=== PATIENT | female | born 1980 | race Caucasian/White ===

== ENCOUNTER 2017-02-24 20:43 | Emergency (ER) | payer MEDICAID ==
[2017-02-24] MEDS ORDERED: Ondansetron 4 MG/2 ML SDV IVPUSH ONE (21:08)
[2017-02-24] MEDS ORDERED: Sodium Chloride 0.9% 1,000 ML IV SCH (21:15)
[2017-02-24] MEDS ORDERED: Promethazine 12.5 MG in Sodium Chloride 0.9% 50 ML IV STA (21:33)
[2017-02-24] MEDS ORDERED: HYDROmorphone 1 MG/ML Syringe IVPUSH ONE (21:34)
[2017-02-24] MEDS ORDERED: Lactated Ringers 1,000 ML IV SCH (23:30)
[2017-02-25] MEDS ORDERED: HYDROmorphone 0.5 MG/0.5 ML Syringe IVPUSH ONE (00:02)
[2017-02-25] MEDS ORDERED: Promethazine 12.5 MG in Sodium Chloride 0.9% 50 ML IV STA (01:00)
--- NOTE | 2017-02-25 01:06 | EDM.PDOC ---
ED HISTORY OF PRESENT ILLNESS - General Chief Complaint: Chest Pain Stated Complaint: CHEST PAIN / DRY HEAVES Time Seen by Provider: 02/24/17 20:53 Source: Reports: Patient History Limitations: Reports: No limitations - History of Present Illness INITIAL COMMENTS - FREE TEXT/NARRATIVE: History of present illness: [This 36-year-old female is here visiting from [place]. She states she has a history of SVTs and had an episode this morning that lasted a while longer than usual and that when she has a nap so she will often get nauseated and get a headache. she is presenting with nausea and a headache and attributing it to the SVT episode that she had this morning. She is on medications to control this but sometimes she still has these episodes. Sounds like there is some consideration for ablation therapy at that has not occurred yet. Sometimes she will have chest pain with these episodes and she did this morning. She denies any fevers or chills cough or cold symptoms denies any abdominal pain or dysuria.] Review of systems: As per history of present illness and below otherwise all systems reviewed and negative. Past medical history: As per history of present illness and as reviewed below otherwise noncontributory. Surgical history: As per history of present illness and as reviewed below otherwise noncontributory. Social history: No reported history of drug or alcohol abuse. Family history: As per history of present illness and as reviewed below otherwise noncontributory. Physical exam: Gen.: Well-developed well-nourished white female in no acute distress HEENT: Atraumatic, normocephalic, pupils reactive, negative for conjunctival pallor or scleral icterus, mucous membranes moist, throat clear, neck supple, nontender, trachea midline. Lungs: Clear to auscultation, breath sounds equal bilaterally, chest nontender. Heart: S1S2, regular, negative for clicks, rubs, or JVD. Abdomen: Soft, nondistended, nontender. Negative for masses or hepatosplenomegaly. Negative for costovertebral tenderness. Pelvis: Stable nontender. Genitourinary: Deferred. Rectal: Deferred. Extremities: Atraumatic, negative for cords or calf pain. Neurovascular unremarkable. Neuro: Awake, alert, oriented. Cranial nerves II through XII unremarkable. Cerebellum unremarkable. Motor and sensory unremarkable throughout. Exam nonfocal. Diagnostics: [CBC complete metabolic panel and a UA and a chest x-ray and EKG and troponins were done her white count is elevated at 15,000+ the etiology of this is uncertain. Her chest x-ray is clear and her urinalysis although it has a few white cells is in the setting of her being completely asymptomatic with no burning or frequency.] Therapeutics: [She received 2 L of fluids while here her IV Dilaudid and IV Phenergan for nausea.] Impression: [Headache with nausea according to the patient secondary to SVT] Plan: [She will followup when necessary and she will be returning home to [place] this Tuesday.] Definitive disposition and diagnosis as appropriate pending reevaluation and review of above. - Related Data Allergies/ADRs: Allergies Allergy/AdvReac Type Severity Reaction Status Date / Time No Known Allergies Allergy Verified 02/24/17 20:52 Home Meds: Home Meds Apixaban [Eliquis] 2 tab PO BID 02/24/17 [History] Benazepril [Lotensin] 20 mg PO DAILY 02/24/17 [History] Metoprolol Succinate 25 mg PO DAILY 02/24/17 [History] Pantoprazole Sodium [Protonix] 20 mg PO BID 02/24/17 [History] QUEtiapine [SEROquel] 600 mg PO BEDTIME 02/24/17 [History] lamoTRIgine [Lamictal XR] 200 mg PO DAILY 02/24/17 [History] Past Medical History HEENT History: Reports: Impaired vision Cardiovascular History: Reports: Arrhythmia, Blood clots/VTE/DVT, High cholesterol Respiratory History: Reports: Asthma, Bronchitis, recurrent, Pneumonia, recurrent Gastrointestinal History: Reports: GERD, Irritable bowel syndrome [employer] History: Reports: 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, Musculoskeletal History: Reports: Fracture Neurological History: Reports: Concussion Psychiatric History: Reports: Anxiety, Depression, Psych Hospitalization(s), Suicide attempt Endocrine/Metabolic History: Reports: Obesity/BMI 30+ - Infectious Disease History Infectious Disease History: Reports: Chicken pox, Mononucleosis - Past Surgical History Cardiovascular Surgical History: Reports: Cardiac Ablation GI Surgical History: Reports: Appendectomy, Cholecystectomy, Colonoscopy, Yue fundoplication Female Surgical History: Reports: Hysterectomy, Salpingo-oophorectomy Social & Family History - Tobacco Use Smoking Status *Q: Current Every Day Smoker Years of Tobacco use: 24 Packs/Tins Daily: 1 - Caffeine Use Caffeine Use: Reports: Tea - Recreational Drug Use Recreational Drug Use: No ED ROS GENERAL - Review of Systems Review Of Systems: ROS reveals no pertinent complaints other than HPI. ED EXAM, GENERAL - Physical Exam Exam: See Below Course - Vital Signs Last Recorded V/S: Last Vital Signs Temp 37.5 C 02/24/17 22:00 Pulse 95 02/24/17 23:16 Resp 16 02/24/17 23:16 BP 111/61 02/24/17 23:16 Pulse Ox 96 02/24/17 23:16 - Orders/Labs/Meds Orders: Active Orders 24 hr Category Date Time Status EKG Documentation Completion [RC] ASDIRECTED Care 02/24/17 21:07 Active Chest 1V Frontal [CR] Stat Exams 02/24/17 21:06 Taken Lactated Ringers [Ringers, Lactated] 1,000 ml Med 02/24/17 23:30 Active IV ASDIRECTED Promethazine [Phenergan] 12.5 mg Med 02/25/17 01:00 Ordered Sodium Chloride 0.9% [Normal Saline] 50 ml IV NOW Sodium Chloride 0.9% [Normal Saline] 1,000 ml Med 02/24/17 21:15 Active IV ASDIRECTED EKG 12 Lead [EK] Stat Ther 02/24/17 21:06 Ordered Medication Orders Sodium Chloride (Normal Saline) 1,000 mls @ 999 mls/hr IV ASDIRECTED [facility] Last Admin: 02/24/17 21:24 Dose: 999 mls/hr Lactated Ringer's (Ringers, Lactated) 1,000 mls @ 999 mls/hr IV ASDIRECTED [facility] Last Admin: 02/24/17 23:29 Dose: 999 mls/hr Labs: Laboratory Tests 02/24/17 02/24/17 02/24/17 Range/Units 21:06 21:06 21:06 WBC 15.8 H (4.5-11.0) K/uL RBC 4.90 (3.30-5.50) M/uL Hgb 14.9 (12.0-15.0) g/dL Hct 41.7 (36.0-48.0) % MCV 85 (80-98) fL MCH 30 (27-31) pg MCHC 36 (32-36) % Plt Count 312 (150-400) K/uL Neut % (Auto) 87 H (36-66) % Lymph % (Auto) 6 L (24-44) % Sutton % (Auto) 6 (2-6) % Eos % (Auto) 1 L (2-4) % Baso % (Auto) 0 (0-1) % D-Dimer, Quantitative 114 (0.0-400.0) ng/mL Sodium 138 L (140-148) mmol/L Potassium 3.8 (3.6-5.2) mmol/L Chloride 104 (100-108) mmol/L Carbon Dioxide 24 (21-32) mmol/L Anion Gap 13.8 (5.0-14.0) mmol/L BUN 22 H (7-18) mg/dL Creatinine 1.0 (0.6-1.0) mg/dL Est Cr Clr Drug Dosing 73.51 mL/min Estimated GFR (MDRD) > 60 (>60) Glucose 104 (74-106) mg/dL Calcium 8.2 L (8.5-10.1) mg/dL Total Bilirubin 0.4 (0.2-1.0) mg/dL AST 17 (15-37) U/L ALT 26 (12-78) U/L Alkaline Phosphatase 124 H (46-116) U/L Troponin I < 0.017 (0.000-0.056) ng/mL Total Protein 7.5 (6.4-8.2) g/dL Albumin 3.6 (3.4-5.0) g/dL Globulin 3.9 H (2.3-3.5) g/dL Albumin/Globulin Ratio 0.9 L (1.2-2.2) Urine Color Urine Appearance Urine pH (4.5-8.0) Ur Specific [place] (1.008-1.030) Urine Protein (NEGATIVE) mg/dL Urine Glucose (UA) (NEGATIVE) mg/dL Urine Ketones (NEGATIVE) mg/dL Urine Occult Blood (NEGATIVE) Urine Nitrite (NEGATIVE) Urine Bilirubin (NEGATIVE) Urine Urobilinogen (NORMAL) mg/dL Ur Leukocyte Esterase (NEGATIVE) Urine RBC (0-5) Urine WBC (0-5) Ur Epithelial Cells Amorphous Sediment Urine Bacteria Urine Mucus 02/24/17 Range/Units 23:07 WBC (4.5-11.0) K/uL RBC (3.30-5.50) M/uL Hgb (12.0-15.0) g/dL Hct (36.0-48.0) % MCV (80-98) fL MCH (27-31) pg MCHC (32-36) % Plt Count (150-400) K/uL Neut % (Auto) (36-66) % Lymph % (Auto) (24-44) % Sutton % (Auto) (2-6) % Eos % (Auto) (2-4) % Baso % (Auto) (0-1) % D-Dimer, Quantitative (0.0-400.0) ng/mL Sodium (140-148) mmol/L Potassium (3.6-5.2) mmol/L Chloride (100-108) mmol/L Carbon Dioxide (21-32) mmol/L Anion Gap (5.0-14.0) mmol/L BUN (7-18) mg/dL Creatinine (0.6-1.0) mg/dL Est Cr Clr Drug Dosing mL/min Estimated GFR (MDRD) (>60) Glucose (74-106) mg/dL Calcium (8.5-10.1) mg/dL Total Bilirubin (0.2-1.0) mg/dL AST (15-37) U/L ALT (12-78) U/L Alkaline Phosphatase (46-116) U/L Troponin I (0.000-0.056) ng/mL Total Protein (6.4-8.2) g/dL Albumin (3.4-5.0) g/dL Globulin (2.3-3.5) g/dL Albumin/Globulin Ratio (1.2-2.2) Urine Color Yellow Urine Appearance Slightly cloudy Urine pH 5.0 (4.5-8.0) Ur Specific [place] 1.025 (1.008-1.030) Urine Protein Negative (NEGATIVE) mg/dL Urine Glucose (UA) Normal (NEGATIVE) mg/dL Urine Ketones 15 H (NEGATIVE) mg/dL Urine Occult Blood Negative (NEGATIVE) Urine Nitrite Negative (NEGATIVE) Urine Bilirubin Small (NEGATIVE) Urine Urobilinogen Normal (NORMAL) mg/dL Ur Leukocyte Esterase Small (NEGATIVE) Urine RBC 0-5 (0-5) Urine WBC 5-10 H (0-5) Ur Epithelial Cells Moderate Amorphous Sediment Not seen Urine Bacteria Few Urine Mucus Moderate Meds: Medications Generic Name Dose Route Start Last Admin Trade Name Freq PRN Reason Stop Dose Admin Sodium Chloride 1,000 mls @ 999 mls/hr 02/24/17 21:15 02/24/17 21:24 Normal Saline IV 999 mls/hr ASDIRECTED DEMOND Administration Lactated Ringer's 1,000 mls @ 999 mls/hr 02/24/17 23:30 02/24/17 23:29 Ringers, Lactated IV 999 mls/hr ASDIRECTED DEMOND Administration Discontinued Medications Generic Name Dose Route Start Last Admin Trade Name Freq PRN Reason Stop Dose Admin Hydromorphone HCl 0.5 mg 02/24/17 21:34 02/24/17 21:46 Dilaudid IVPUSH 02/24/17 21:35 0.5 mg ONETIME ONE Administration Hydromorphone HCl 0.5 mg 02/25/17 00:02 02/25/17 00:06 Dilaudid IVPUSH 02/25/17 00:03 0.5 mg ONETIME ONE Administration Promethazine HCl 12.5 mg/ 50.5 mls @ 200 mls/hr 02/24/17 21:33 02/24/17 21:45 Sodium Chloride IV 02/24/17 21:48 200 mls/hr NOW STA Administration Ondansetron HCl 4 mg 02/24/17 21:08 02/24/17 21:24 Zofran IVPUSH 02/24/17 21:09 4 mg ONETIME ONE Administration Departure - Departure Time of Disposition: 01:05 Disposition: Home, Self-Care 01 Condition: good Clinical Impression: Nausea, History of paroxysmal supraventricular tachycardia Headache Qualifiers: Headache type: unspecified Headache chronicity pattern: episodic headache Intractability: not intractable Qualified Code(s): R51 - Headache Forms: ED Department Discharge Additional Instructions: I hope you get to feeling better and I would recommend you followup with your primary care doctor when you return to [place]. In the meantime we can see you as needed here in [place]. - My Orders Last 24 Hours: My Active Orders 02/24/17 21:06 Chest 1V Frontal [CR] Stat EKG 12 Lead [EK] Stat 02/24/17 21:07 EKG Documentation Completion [RC] ASDIRECTED 02/24/17 21:15 Sodium Chloride 0.9% [Normal Saline] 1,000 ml IV ASDIRECTED 02/24/17 23:30 Lactated Ringers [Ringers, Lactated] 1,000 ml IV ASDIRECTED 02/25/17 01:00 Promethazine [Phenergan] 12.5 mg Sodium Chloride 0.9% [Normal Saline] 50 ml IV NOW - Assessment/Plan Last 24 Hours: My Active Orders 02/24/17 21:06 Chest 1V Frontal [CR] Stat EKG 12 Lead [EK] Stat 02/24/17 21:07 EKG Documentation Completion [RC] ASDIRECTED 02/24/17 21:15 Sodium Chloride 0.9% [Normal Saline] 1,000 ml IV ASDIRECTED 02/24/17 23:30 Lactated Ringers [Ringers, Lactated] 1,000 ml IV ASDIRECTED 02/25/17 01:00 Promethazine [Phenergan] 12.5 mg Sodium Chloride 0.9% [Normal Saline] 50 ml IV NOW
[2017-02-25 01:12] VITALS: BP 108/65
--- NOTE | 2017-02-25 09:08 | CR ---
Chest 1V Frontal HISTORY: Chest pain. FINDINGS: Cardiac size and pulmonary vessels are normal. The lungs are clear. IMPRESSION: Negative AP chest.
== END 2017-02-25 01:45 | disposition home or self-care (01) ==
LOC: JP.ED 20:43
DX: R51 Headache (principal); R11.0 Nausea; F17.210 Nicotine dependence, cigarettes, uncomplicated; J45.909 Unspecified asthma, uncomplicated; E78.00 Pure hypercholesterolemia, unspecified; E66.9 Obesity, unspecified; Z68.37 Body mass index [BMI] 37.0-37.9, adult; Z90.49 Acquired absence of other specified parts of digestive tract; Z79.899 Other long term (current) drug therapy
CPT/HCPCS: 36415; 71010; 80053; 81001; 84484; 85025; 85379; 93005; 96361; 96365; 96375; 96376; 99284; J1170; J2405; J2550; J7040; J7050; J7120; 93010

== ENCOUNTER 2017-07-29 19:42 | Emergency (ER) | payer MEDICAID ==
[2017-07-29 20:23] VITALS: BP 129/69
--- NOTE | 2017-07-29 21:11 | EDM.PDOC ---
ED HPI GENERAL MEDICAL PROBLEM - General Chief Complaint: Respiratory Problem Stated Complaint: COUGH Time Seen by Provider: 07/29/17 21:00 Source of Information: Reports: Patient, Family History Limitations: Reports: No Limitations - History of Present Illness INITIAL COMMENTS - FREE TEXT/NARRATIVE: Patient presents to ER tonight for complaints of fever, chills, cough, wheezing and sinus pain/pressure for 3 to 8 days. Symptoms seemed to improve then worsen. - Related Data Allergies Allergy/AdvReac Type Severity Reaction Status Date / Time ondansetron Allergy Headache Verified 07/29/17 20:29 [From Zofran (as hydrochloride)] Home Meds: Home Meds Benazepril [Lotensin] 20 mg PO DAILY 02/24/17 [History] Metoprolol Succinate 25 mg PO DAILY 02/24/17 [History] Pantoprazole Sodium [Protonix] 20 mg PO BID 02/24/17 [History] QUEtiapine [SEROquel] 600 mg PO BEDTIME 02/24/17 [History] lamoTRIgine [Lamictal XR] 200 mg PO DAILY 02/24/17 [History] Past Medical History HEENT History: Reports: Impaired Vision Cardiovascular History: Reports: Arrhythmia, Blood Clots/VTE/DVT, High Cholesterol Respiratory History: Reports: Asthma, Bronchitis, Recurrent, Pneumonia, Recurrent Gastrointestinal History: Reports: GERD, Irritable Bowel Syndrome [employer] History: Reports: 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, Musculoskeletal History: Reports: Fracture Neurological History: Reports: Concussion Psychiatric History: Reports: Anxiety, Depression, Psych Hospitalization(s), Suicide Attempt Endocrine/Metabolic History: Reports: Obesity/BMI 30+ - Infectious Disease History Infectious Disease History: Reports: Chicken Pox, Mononucleosis - Past Surgical History GI Surgical History: Reports: Appendectomy, Cholecystectomy, Colonoscopy, Yue Fundoplication Female Surgical History: Reports: Hysterectomy, Salpingo-Oophorectomy Social & Family History - Tobacco Use Smoking Status *Q: Current Every Day Smoker Years of Tobacco use: 20 Packs/Tins Daily: 1 - Caffeine Use Caffeine Use: Reports: Tea - Recreational Drug Use Recreational Drug Use: No ED ROS GENERAL - Review of Systems Review Of Systems: See Below Constitutional: Reports: Fever, Chills. Denies: Malaise, Weakness HEENT: Reports: Sinus Problem. Denies: Ear Discharge, Ear Pain, Throat Pain, Throat Swelling Respiratory: Reports: Wheezing, Cough. Denies: Shortness of Breath, Sputum, Hemoptysis Cardiovascular: Denies: Chest Pain, Dyspnea on Exertion, Edema, Lightheadedness , Palpitations Endocrine: Reports: No Symptoms GI/Abdominal: Reports: No Symptoms : Reports: No Symptoms Musculoskeletal: Reports: No Symptoms Skin: Reports: No Symptoms Neurological: Reports: No Symptoms Psychiatric: Reports: No Symptoms Hematologic/Lymphatic: Reports: No Symptoms Immunologic: Reports: No Symptoms ED EXAM, GENERAL - Physical Exam Exam: See Below Free Text/Narrative:: Reva presents today with complaints of fever, chills, sinus congestion/ pain with wheezing off and on for 3 to 8 days. She also complains of headache. She states her symptoms seemed to get better then worsen. Exam Limited By: No Limitations General Appearance: Alert, WD/WN, Mild Distress Eye Exam: Bilateral Eye: EOMI, Normal Inspection, PERRL Ears: Normal External Exam, Normal Canal, Hearing Grossly Normal, Normal TMs Ear Exam: Bilateral Ear: Auricle Normal, Canal Normal, TM Dull Nose: Nasal Tenderness, Nasal Swelling, Nasal Drainage, Other (green) Throat/Mouth: Normal Lips, Normal Voice, No Airway Compromise, Other (erythema to pharynx) Head: Atraumatic, Normocephalic Neck: Normal Inspection, Supple, Non-Tender, Full Range of Motion. No: Lymphadenopathy (R), Lymphadenopathy (L) Respiratory/Chest: No Respiratory Distress, No Accessory Muscle Use, Chest Non- Tender, Wheezing, Prolonged Expiration Cardiovascular: Normal Peripheral Pulses, Regular Rate, Rhythm, No Edema, No Murmur, No Rub Back Exam: Normal Inspection, Full Range of Motion. No: CVA Tenderness (R), CVA Tenderness (L) Extremities: Normal Inspection, Normal Range of Motion, Non-Tender, No Pedal Edema, Normal Capillary Refill Neurological: Alert, Oriented, CN II-XII Intact, Normal Cognition, Normal Gait, No Motor/Sensory Deficits Psychiatric: Normal Affect, Normal Mood Skin Exam: Warm, Dry, Intact, No Rash, Other (Flushed. ) Lymphatic: No Adenopathy Course - Vital Signs Last Recorded V/S: Last Vital Signs Temp 37.0 C 07/29/17 20:41 Pulse 88 07/29/17 20:41 Resp 16 07/29/17 20:41 BP 129/69 07/29/17 20:41 Pulse Ox 98 07/29/17 20:41 Departure - Departure Time of Disposition: 21:23 Disposition: Home, Self-Care 01 Condition: Good Clinical Impression: Sinusitis, Cough, Fever, Wheezing on auscultation - Discharge Information Instructions: Allergic Rhinitis Referrals: PCP,None [Primary Care Provider] - Forms: ED Department Discharge Additional Instructions: You are suffering from post nasal drip, sinus pain and pressure, cough, fever and wheezing. You can take ibuprofen 800mg by mouth three times a day as needed for pain/ fever. Use of acetaminophen 650mg by mouth can be used 3 to 4 times a day as well. Take robitussin AC as directed for cough. Use of benzonatate 100mg PO three times a day as needed for cough (DO NOT bite or chew pill). Albuterol inhaler as directed for wheezing. Fluticasone nasal spray, one spray each nare daily as needed for congestion. Chlorpheniramine 4mg tablet, one tablet every 4 to 6 hours as needed for congestion. Fill doxycycline 100mg tablet by mouth twice per day for 10 days if fevers, sinuses worsen in 24 to 48 hours. Drinking plenty of fluids, hot and cold can help your cough. Sleeping with your head elevated can help as well. Return for worsening issues or concerns. - Assessment/Plan Assessment:: Cough Fever Wheezing Sinusitis Plan: She can take ibuprofen 800mg by mouth three times a day as needed for pain/ fever. Use of acetaminophen 650mg by mouth can be used 3 to 4 times a day as well. Take robitussin AC as directed for cough. Use of benzonatate 100mg PO three times a day as needed for cough (DO NOT bite or chew pill). Albuterol inhaler as directed for wheezing. Fluticasone nasal spray, one spray each nare daily as needed for congestion. Chlorpheniramine 4mg tablet, one tablet every 4 to 6 hours as needed for congestion. Fill doxycycline 100mg tablet by mouth twice per day for 10 days if fevers, sinuses worsen in 24 to 48 hours. Drinking plenty of fluids, hot and cold can help your cough. Sleeping with your head elevated can help as well. Return for worsening issues or concerns
== END 2017-07-29 21:33 | disposition home or self-care (01) ==
LOC: JP.ED 19:42
DX: J32.9 Chronic sinusitis, unspecified (principal); J45.909 Unspecified asthma, uncomplicated; Z86.718 Personal history of other venous thrombosis and embolism; E78.00 Pure hypercholesterolemia, unspecified; E66.9 Obesity, unspecified; Z87.01 Personal history of pneumonia (recurrent); Z79.899 Other long term (current) drug therapy
CPT/HCPCS: 99283

== ENCOUNTER 2017-09-28 20:27 | Emergency (ER) | payer MEDICAID ==
--- NOTE | 2017-09-28 21:10 | EDM.PDOC ---
ED HPI GENERAL MEDICAL PROBLEM - General Chief Complaint: Back Pain or Injury Stated Complaint: RIGHT LOWER BACK/FLANK PAIN Time Seen by Provider: 09/28/17 21:10 Source of Information: Reports: Patient History Limitations: Reports: No Limitations - History of Present Illness INITIAL COMMENTS - FREE TEXT/NARRATIVE: pt arrived stating for the past 2 days that she has had pain accross her back and she has had some pain in the left flank. She has sharp pain on the rt that goes down over the buttock. Onset: Gradual, Other ( last 2 days. ) Duration: Hour(s):, Getting Worse Location: Reports: Back Associated Symptoms: Reports: Other (pain in the left flank. ) lower back pain Pain Score (Numeric/FACES): 8 - Related Data Allergies Allergy/AdvReac Type Severity Reaction Status Date / Time ondansetron AdvReac Headache Verified 09/29/17 13:15 [From Zofran (as hydrochloride)] Home Meds: Home Meds Benazepril [Lotensin] 20 mg PO DAILY 02/24/17 [History] Metoprolol Succinate 25 mg PO DAILY 02/24/17 [History] Pantoprazole Sodium [Protonix] 20 mg PO BID 02/24/17 [History] QUEtiapine [SEROquel] 600 mg PO BEDTIME 02/24/17 [History] lamoTRIgine [Lamictal XR] 200 mg PO DAILY 02/24/17 [History] ALPRAZolam [Xanax] 0.5 mg PO ASDIRECTED PRN 09/28/17 [History] Past Medical History HEENT History: Reports: Impaired Vision Cardiovascular History: Reports: Arrhythmia, Blood Clots/VTE/DVT, High Cholesterol, Hypertension, Other (See Below) Other Cardiovascular History: SVT Respiratory History: Reports: Asthma, Bronchitis, Recurrent, Pneumonia, Recurrent Gastrointestinal History: Reports: GERD, Irritable Bowel Syndrome 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: 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, Musculoskeletal History: Reports: Fracture Neurological History: Reports: Concussion Psychiatric History: Reports: Anxiety, Bipolar, Depression, Psych Hospitalization(s), Suicide Attempt Endocrine/Metabolic History: Reports: Obesity/BMI 30+ - Infectious Disease History Infectious Disease History: Reports: Chicken Pox - Past Surgical History Cardiovascular Surgical History: Reports: Cardiac Ablation GI Surgical History: Reports: Appendectomy, Cholecystectomy, Colonoscopy, Yue Fundoplication Female Surgical History: Reports: Hysterectomy, Salpingo-Oophorectomy Social & Family History - Tobacco Use Smoking Status *Q: Current Every Day Smoker Years of Tobacco use: 24 Packs/Tins Daily: 1 - Caffeine Use Caffeine Use: Reports: Tea - Recreational Drug Use Recreational Drug Use: No ED ROS GENERAL - Review of Systems Review Of Systems: See Below Constitutional: Reports: No Symptoms HEENT: Reports: No Symptoms Respiratory: Reports: No Symptoms Cardiovascular: Reports: No Symptoms Endocrine: Reports: No Symptoms GI/Abdominal: Reports: Other (pt has left flank pain) : Reports: No Symptoms Musculoskeletal: Reports: Other (pain accross the entire back and pain in the buttock area on the rt. ) ED EXAM,LOWER BACK PAIN/INJURY - Physical Exam Exam: See Below Text/Narrative:: pt arrived with pain accross the entire back and sharp pain over the rt buttock. The pt also has ain in the left flank area. Exam Limited By: No Limitations General Appearance: Alert, Anxious, Moderate Distress Ears: Normal TMs Nose: Normal Inspection Throat/Mouth: Normal Inspection Head: Atraumatic Neck: Normal Inspection Respiratory/Chest: No Respiratory Distress Cardiovascular: Regular Rate, Rhythm GI/Abdominal: Soft, Non-Tender, Other (pt does have rt flank tenderness) Rectal (Female) Exam: Deferred Back Exam: Muscle Spasm, Other (pt is tender accross te lower back. She has a neg straight leg raising ) Extremities: Normal Inspection Course - Vital Signs Last Recorded V/S: Last Vital Signs Temp 36.2 C 09/28/17 20:54 Pulse 91 09/28/17 23:01 Resp 16 09/28/17 23:01 BP 111/59 L 09/28/17 23:01 Pulse Ox 99 09/28/17 23:01 - Orders/Labs/Meds Labs: Laboratory Tests 09/28/17 09/28/17 09/28/17 Range/Units 21:18 21:18 21:47 WBC 7.9 (4.5-11.0) K/uL RBC 4.45 (3.30-5.50) M/uL Hgb 13.4 (12.0-15.0) g/dL Hct 39.0 (36.0-48.0) % MCV 88 (80-98) fL MCH 30 (27-31) pg MCHC 34 (32-36) % Plt Count 263 (150-400) K/uL Neut % (Auto) 38 (36-66) % Lymph % (Auto) 46 H (24-44) % [place] % (Auto) 7 H (2-6) % Eos % (Auto) 8 H (2-4) % Baso % (Auto) 1 (0-1) % Sodium 141 (140-148) mmol/L Potassium 3.7 (3.6-5.2) mmol/L Chloride 106 (100-108) mmol/L Carbon Dioxide 29 (21-32) mmol/L Anion Gap 6.3 (5.0-14.0) mmol/L BUN 21 H (7-18) mg/dL Creatinine 0.9 (0.6-1.0) mg/dL Est Cr Clr Drug Dosing 77.76 mL/min Estimated GFR (MDRD) > 60 (>60) Glucose 80 (74-106) mg/dL Calcium 8.7 (8.5-10.1) mg/dL Total Bilirubin 0.1 L D (0.2-1.0) mg/dL AST 16 (15-37) U/L ALT 22 (12-78) U/L Alkaline Phosphatase 106 (46-116) U/L Total Protein 6.7 (6.4-8.2) g/dL Albumin 3.2 L (3.4-5.0) g/dL Globulin 3.5 (2.3-3.5) g/dL Albumin/Globulin Ratio 0.9 L (1.2-2.2) Urine Color Yellow Urine Appearance Cloudy Urine pH 5.0 (4.5-8.0) Ur Specific [place] 1.025 (1.008-1.030) Urine Protein Negative (NEGATIVE) mg/dL Urine Glucose (UA) Normal (NEGATIVE) mg/dL Urine Ketones Negative (NEGATIVE) mg/dL Urine Occult Blood Negative (NEGATIVE) Urine Nitrite Negative (NEGATIVE) Urine Bilirubin Negative (NEGATIVE) Urine Urobilinogen Normal (NORMAL) mg/dL Ur Leukocyte Esterase Small (NEGATIVE) Urine RBC 0-5 (0-5) Urine WBC 10-20 H (0-5) Ur Epithelial Cells Moderate Amorphous Sediment Few Urine Bacteria Few Urine Mucus Few Meds: Medications Discontinued Medications Generic Name Dose Route Start Last Admin Trade Name Freq PRN Reason Stop Dose Admin Cyclobenzaprine HCl 10 mg 12/06/17 21:18 09/28/17 21:43 Flexeril PO 09/28/17 21:19 10 mg ONETIME ONE Administration Hydromorphone HCl 0.5 mg 09/28/17 22:36 Dilaudid IVPUSH 09/28/17 22:37 ONETIME ONE Hydromorphone HCl 0.5 mg 09/28/17 23:05 09/28/17 23:06 Dilaudid IM 09/28/17 23:06 0.5 mg ONETIME ONE Administration Sodium Chloride 1,000 mls @ 999 mls/hr 09/28/17 22:45 Normal Saline IV ASDIRECTED [facility] Ketorolac Tromethamine 60 mg 09/28/17 21:18 09/28/17 21:43 Toradol IM 09/28/17 21:19 60 mg ONETIME ONE Administration - Re-Assessments/Exams Free Text/Narrative Re-Assessment/Exam: 09/29/17 00:00 wbc is normal. Her chem look good. Her urine does look infected and was cultured. 10/01/17 07:42 pt was given torodol with very little relief. sHe was then given dilaudid and she did get relief. Departure - Departure Time of Disposition: 00:01 Disposition: Home, Self-Care 01 Condition: Fair Clinical Impression: UTI (urinary tract infection), Spasm of lumbar paraspinous muscle - Discharge Information Instructions: Urinary Tract Infection, Adult, [id number], Back Pain, Adult, [id number] Referrals: PCP,None [Primary Care Provider] - Forms: ED Department Discharge Care Plan Goals: heat or ice to the area, push fluid-- definite dehydration, cipro 500mg bid for 7 days. norco 5/325 q6h prn for pain, flexeril 10mg hs. Push at least 8 --8 oz glasses of water daily.
[2017-09-28] MEDS ORDERED: Ketorolac 60 MG/2 ML SDV IM ONE (21:18)
[2017-09-28] MEDS ORDERED: Cyclobenzaprine 10 MG Tab PO ONE (21:18)
[2017-09-28] MEDS ORDERED: HYDROmorphone 0.5 MG/0.5 ML Syringe IVPUSH ONE (22:36)
[2017-09-28] MEDS ORDERED: Sodium Chloride 0.9% 1,000 ML IV SCH (22:45)
[2017-09-28 23:02] VITALS: BP 111/59
[2017-09-28] MEDS ORDERED: HYDROmorphone 0.5 MG/0.5 ML Syringe IM ONE (23:05)
--- NOTE | 2017-09-29 08:46 | CR ---
Lumbar Spine Min 4V INDICATION: PAIN ACROSS THE BACK FINDINGS: 5 lumbar type vertebral bodies. Mild to moderate lumbar curve convex to the left. Slight di sc space narrowing and endplate hypertrophic changes at L2-3. Mild degenerative changes lower lumbar facet joints.
== END 2017-09-29 00:13 | disposition home or self-care (01) ==
LOC: JP.ED 20:27
DX: N39.0 Urinary tract infection, site not specified (principal); M62.830 Muscle spasm of back; I10 Essential (primary) hypertension; E78.00 Pure hypercholesterolemia, unspecified; F31.9 Bipolar disorder, unspecified; F17.210 Nicotine dependence, cigarettes, uncomplicated; K21.9 Gastro-esophageal reflux disease without esophagitis; Z79.899 Other long term (current) drug therapy; Z88.8 Allergy status to other drugs, medicaments and biological substances
CPT/HCPCS: 36415; 72110; 80053; 81001; 85025; 87086; 96372; 96374; 99284; A9270; J1170; J1885

== ENCOUNTER 2017-11-06 18:09 | Emergency (ER) | payer MEDICAID ==
[2017-11-06 18:35] VITALS: BP 122/87
[2017-11-06] MEDS ORDERED: diphenhydrAMINE 50 MG/ML SDV IM ONE (18:50)
[2017-11-06] MEDS ORDERED: Promethazine 25 MG/ML SDV IM ONE (18:50)
[2017-11-06] MEDS ORDERED: Ketorolac 60 MG/2 ML SDV IM ONE (18:50)
[2017-11-06] MEDS ORDERED: Orphenadrine 100 MG Tab.ER PO ONE (18:52)
--- NOTE | 2017-11-06 18:59 | EDM.PDOC ---
ED HPI GENERAL MEDICAL PROBLEM - General Chief Complaint: General Stated Complaint: FALL, RIGHT ANKLE,KNEE,HIP PAIN Time Seen by Provider: 11/06/17 18:45 Source of Information: Reports: Patient History Limitations: Reports: No Limitations - History of Present Illness INITIAL COMMENTS - FREE TEXT/NARRATIVE: 37-year-old female who recently moved to the area has chronic pain syndromes, especially headaches and has had a headache for the past 5 days. Very similar to previous headaches for which she gets Toradol, Benadryl, Phenergan and Norflex. On the way out of the house to coming to the emergency room she slipped on the steps on her right side and has soreness in her ankle, knee and right hip. She ambulated into the emergency room. No head injury, no fevers or chills. Onset: Gradual Duration: Day(s): (headache for 5 days) Severity: Mild Associated Symptoms: Denies: Nausea/Vomiting, Shortness of Breath Generalized Pain Score (Numeric/FACES): 9 - Related Data Allergies Allergy/AdvReac Type Severity Reaction Status Date / Time ondansetron AdvReac Headache Verified 11/06/17 18:18 [From Zofran (as hydrochloride)] Home Meds: Home Meds Benazepril [Lotensin] 20 mg PO DAILY 02/24/17 [History] Metoprolol Succinate 25 mg PO DAILY 02/24/17 [History] QUEtiapine [SEROquel] 600 mg PO BEDTIME 02/24/17 [History] lamoTRIgine [Lamictal XR] 200 mg PO DAILY 02/24/17 [History] ALPRAZolam [Xanax] 1 mg PO ASDIRECTED PRN 09/28/17 [History] Omeprazole [priLOSEC OTC] 20 mg PO DAILY 11/06/17 [History] Past Medical History HEENT History: Reports: Impaired Vision Cardiovascular History: Reports: Arrhythmia, Blood Clots/VTE/DVT, High Cholesterol, Hypertension, Other (See Below) Other Cardiovascular History: SVT Respiratory History: Reports: Asthma, Bronchitis, Recurrent, Pneumonia, Recurrent Gastrointestinal History: Reports: GERD, Irritable Bowel Syndrome 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: 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, Musculoskeletal History: Reports: Back Pain, Chronic, Fracture Neurological History: Reports: Concussion, Headaches, Chronic Psychiatric History: Reports: Anxiety, Bipolar, Depression, Psych Hospitalization(s), Suicide Attempt Endocrine/Metabolic History: Reports: Obesity/BMI 30+ - Infectious Disease History Infectious Disease History: Reports: Chicken Pox, Mononucleosis - Past Surgical History Cardiovascular Surgical History: Reports: Cardiac Ablation GI Surgical History: Reports: Appendectomy, Cholecystectomy, Colonoscopy, EGD, Yue Fundoplication Female Surgical History: Reports: Hysterectomy, Salpingo-Oophorectomy Social & Family History - Tobacco Use Smoking Status *Q: Current Every Day Smoker Years of Tobacco use: 20 Packs/Tins Daily: 1 - Caffeine Use Caffeine Use: Reports: Soda Caffeine Use Comment: havent any caffeine for 4 days now - Recreational Drug Use Recreational Drug Use: No ED ROS GENERAL - Review of Systems Review Of Systems: See Below Constitutional: Denies: Fever, Chills HEENT: Reports: No Symptoms Respiratory: Denies: Shortness of Breath, Cough Cardiovascular: Denies: Chest Pain GI/Abdominal: Denies: Abdominal Pain Musculoskeletal: Reports: Foot Pain, Other (Hip and right knee pain from recent fall) Skin: Reports: No Symptoms Neurological: Reports: Headache ED EXAM, GENERAL - Physical Exam Exam: See Below Exam Limited By: No Limitations General Appearance: Alert, Other (Looks uncomfortable but not distressed) Neck: Normal Inspection, Supple Respiratory/Chest: No Respiratory Distress Extremities: Other (Reacts with tenderness to even light palpation across the lateral right hip and around the knee although there is no evidence of trauma such as bruising, asymmetry or abrasion) Neurological: Alert, Oriented, No Motor/Sensory Deficits Psychiatric: Flat Affect Skin Exam: Warm, Dry Course - Vital Signs Last Recorded V/S: Last Vital Signs Temp 97.2 F 11/06/17 18:35 Pulse 100 11/06/17 18:35 Resp 16 11/06/17 18:35 BP 122/87 11/06/17 18:35 Pulse Ox 97 11/06/17 18:35 - Orders/Labs/Meds Meds: Medications Discontinued Medications Generic Name Dose Route Start Last Admin Trade Name Freq PRN Reason Stop Dose Admin Diphenhydramine HCl 50 mg 11/06/17 18:50 11/06/17 19:11 Benadryl IM 11/06/17 18:51 50 mg ONETIME ONE Administration Ketorolac Tromethamine 60 mg 11/06/17 18:50 11/06/17 19:11 Toradol IM 11/06/17 18:51 60 mg ONETIME ONE Administration Promethazine HCl 12.5 mg 11/06/17 18:50 11/06/17 19:10 Phenergan IM 11/06/17 18:51 12.5 mg ONETIME ONE Administration - Re-Assessments/Exams Free Text/Narrative Re-Assessment/Exam: 11/06/17 18:58 Patient was given 50 mg of Benadryl IM, 60 mg of Toradol IM and 12.5 of Phenergan IM. She was also given 100 mg of oral Norflex. She was reassured about her musculoskeletal injuries, no need for x-rays. 11/06/17 19:33 Patient felt quite a bit better after the injections. She was encouraged to ice down sore areas, increase activity as tolerated and recheck with her primary physician in 2-3 days if not improving satisfactorily. Departure - Departure Time of Disposition: 20:59 Disposition: Home, Self-Care 01 Condition: Good Clinical Impression: Tension headache Contusion of hip, right Qualifiers: Encounter type: initial encounter Qualified Code(s): S70.01XA - Contusion of right hip, initial encounter - Discharge Information Instructions: Tension Headache, [id number] Referrals: Medina Casas PA [Primary Care Provider] - Forms: ED Department Discharge Care Plan Goals: Continue your regular medications, a regular dose of ibuprofen or naproxen and ice to sore areas for the next 48 hours should help. Recheck in 2-3 days if not improving satisfactorily.
== END 2017-11-06 20:59 | disposition home or self-care (01) ==
LOC: JP.ED 18:09
DX: S70.01XA Contusion of right hip, initial encounter (principal); G44.209 Tension-type headache, unspecified, not intractable; K21.9 Gastro-esophageal reflux disease without esophagitis; E66.9 Obesity, unspecified; F17.210 Nicotine dependence, cigarettes, uncomplicated; Z88.8 Allergy status to other drugs, medicaments and biological substances; Z79.899 Other long term (current) drug therapy; W19.XXXA Unspecified fall, initial encounter
CPT/HCPCS: 96372; 99284; J1200; J1885; J2550

== ENCOUNTER 2017-11-23 22:23 | Emergency (ER) | payer MEDICAID ==
[2017-11-23 22:55] VITALS: BP 132/72
[2017-11-23] MEDS ORDERED: Lactated Ringers 1,000 ML IV ONE (23:13)
[2017-11-23] MEDS ORDERED: Prochlorperazine 10 MG/2 ML SDV IVPUSH ONE (23:14)
[2017-11-23] MEDS ORDERED: diphenhydrAMINE 50 MG/ML SDV IVPUSH ONE (23:14)
[2017-11-23] MEDS ORDERED: Ketorolac 30 MG/ML SDV IVPUSH ONE (23:14)
[2017-11-23] MEDS ORDERED: Ketorolac 60 MG/2 ML SDV IM ONE (23:27)
[2017-11-23] MEDS ORDERED: Prochlorperazine 10 MG/2 ML SDV IM ONE (23:28)
[2017-11-23] MEDS ORDERED: diphenhydrAMINE 50 MG/ML SDV IM ONE (23:31)
[2017-11-23] MEDS ORDERED: Promethazine 25 MG/ML SDV IM ONE (23:31)
--- NOTE | 2017-11-23 23:45 | EDM.PDOC ---
ED HPI GENERAL MEDICAL PROBLEM - General Chief Complaint: Headache Stated Complaint: MIGRAINE Time Seen by Provider: 11/23/17 23:15 Source of Information: Reports: Patient History Limitations: Reports: No Limitations - History of Present Illness INITIAL COMMENTS - FREE TEXT/NARRATIVE: 37 yo female with a pHx of migraines presents with a couple day hx of a migraine associated with photophobia and nausea. No vomiting. Has not been to the clinic. There is nothing different about this MATA compared with prior MATA's. No fever or recent head trauma. Onset Date: 11/21/17 Duration: Day(s): Location: Reports: Head Quality: Reports: Ache Severity: Moderate Improves with: Reports: None Worsens with: Reports: Medication Context: Reports: Other (Hx of migraine) Associated Symptoms: Reports: Headaches, Nausea/Vomiting (no vomiting). 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) migraine Pain Score (Numeric/FACES): 10 - Related Data Allergies Allergy/AdvReac Type Severity Reaction Status Date / Time ondansetron AdvReac Headache Verified 11/23/17 23:00 [From Zofran (as hydrochloride)] Home Meds: Home Meds Benazepril [Lotensin] 20 mg PO DAILY 02/24/17 [History] Metoprolol Succinate 25 mg PO DAILY 02/24/17 [History] QUEtiapine [SEROquel] 600 mg PO BEDTIME 02/24/17 [History] lamoTRIgine [Lamictal XR] 200 mg PO DAILY 02/24/17 [History] ALPRAZolam [Xanax] 1 mg PO ASDIRECTED PRN 09/28/17 [History] Omeprazole [priLOSEC OTC] 20 mg PO DAILY 11/06/17 [History] Past Medical History HEENT History: Reports: Impaired Vision Cardiovascular History: Reports: Arrhythmia, Blood Clots/VTE/DVT, High Cholesterol, Hypertension, Other (See Below) Other Cardiovascular History: SVT Respiratory History: Reports: Asthma, Bronchitis, Recurrent, Pneumonia, Recurrent Gastrointestinal History: Reports: GERD, Irritable Bowel 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, Musculoskeletal History: Reports: Back Pain, Chronic, Fracture Neurological History: Reports: Concussion, Headaches, Chronic Psychiatric History: Reports: Anxiety, Bipolar, Depression, Psych Hospitalization(s), Suicide Attempt Endocrine/Metabolic History: Reports: Obesity/BMI 30+ - Infectious Disease History Infectious Disease History: Reports: Chicken Pox - Past Surgical History Cardiovascular Surgical History: Reports: Cardiac Ablation GI Surgical History: Reports: Appendectomy, Cholecystectomy, Colonoscopy, EGD, Yue Fundoplication Female Surgical History: Reports: Hysterectomy, Salpingo-Oophorectomy Social & Family History - Tobacco Use Smoking Status *Q: Current Every Day Smoker Years of Tobacco use: 20 Packs/Tins Daily: 1 - Caffeine Use Caffeine Use: Reports: Soda Caffeine Use Comment: havent any caffeine for 4 days now - Recreational Drug Use Recreational Drug Use: No ED ROS GENERAL - Review of Systems Review Of Systems: See Below Constitutional: Reports: No Symptoms HEENT: Reports: Other (photophobia) Respiratory: Reports: No Symptoms Cardiovascular: Reports: No Symptoms Endocrine: Reports: No Symptoms GI/Abdominal: Reports: Decreased Appetite, Nausea. Denies: Abdominal Pain, Black Stool, Bloody Stool, Constipation, Diarrhea, Distension, Hematemesis, Hematochezia, Melena, Vomiting : Reports: No Symptoms Musculoskeletal: Reports: No Symptoms Skin: Reports: No Symptoms Neurological: Reports: Headache Psychiatric: Reports: No Symptoms - Physical Exam Exam: See Below Exam Limited By: No Limitations General Appearance: Alert, WD/WN, No Apparent Distress, Obese Eye Exam: Bilateral Eye: Normal Inspection, PERRL Ears: Normal External Exam, Normal Canal, Hearing Grossly Normal, Normal TMs Nose: Normal Inspection, Normal Mucosa, No Blood Throat/Mouth: Normal Inspection, Normal Lips, Normal Oropharynx, Normal Voice, No Airway Compromise Head Exam: Atraumatic, Normocephalic Neck: Normal Inspection Respiratory/Chest: No Respiratory Distress, Lungs Clear, Normal Breath Sounds, No Accessory Muscle Use Cardiovascular: Regular Rate, Rhythm, No Edema GI/Abdominal: Normal Bowel Sounds, Soft, Non-Tender, No Distention Neuro Exam (Abbreviated): Alert, Oriented, CN II-XII Intact, Normal Cognition, No Motor/Sensory Deficits Back Exam: Normal Inspection. No: CVA Tenderness (R), CVA Tenderness (L) Extremities: Normal Inspection, Normal Range of Motion, Non-Tender, No Pedal Edema Psychiatric: Normal Affect, Normal Mood Skin Exam: Warm, Dry, Intact, Normal Color, No Rash Course - Vital Signs Text/Narrative:: Feeling better after IM Toradol, Phenergan, and Benedryl Last Recorded V/S: Last Vital Signs Temp 36.5 C 11/23/17 23:16 Pulse 83 11/23/17 23:16 Resp 16 11/23/17 23:16 BP 132/72 11/23/17 23:16 Pulse Ox 97 11/23/17 23:16 - Orders/Labs/Meds Meds: Medications Discontinued Medications Generic Name Dose Route Start Last Admin Trade Name [place] PRN Reason Stop Dose Admin Diphenhydramine HCl 25 mg 11/23/17 23:14 Benadryl IVPUSH 11/23/17 23:15 ONETIME ONE Diphenhydramine HCl 50 mg 11/23/17 23:31 11/23/17 23:43 Benadryl IM 11/23/17 23:32 50 mg ONETIME ONE Administration Lactated Ringer's 1,000 mls @ 1,000 mls/hr 11/23/17 23:13 Ringers, Lactated IV 11/24/17 00:12 BOLUS ONE Ketorolac Tromethamine 30 mg 11/23/17 23:14 Toradol IVPUSH 11/23/17 23:15 ONETIME ONE Ketorolac Tromethamine 60 mg 11/23/17 23:27 11/23/17 23:41 Toradol IM 11/23/17 23:28 60 mg ONETIME ONE Administration Prochlorperazine Edisylate 10 mg 11/23/17 23:14 Compazine IVPUSH 11/23/17 23:15 ONETIME ONE Prochlorperazine Edisylate 10 mg 11/23/17 23:28 Compazine IM 11/23/17 23:29 ONETIME ONE Promethazine HCl 50 mg 11/23/17 23:31 11/23/17 23:48 Phenergan IM 11/23/17 23:32 50 mg ONETIME ONE Administration Departure - Departure Time of Disposition: 00:21 Disposition: Home, Self-Care 01 Condition: Good Clinical Impression: Migraine - Discharge Information Referrals: Medina Casas PA [Primary Care Provider] - Forms: ED Department Discharge, ED Return to Work/School Form Additional Instructions: No driving tonight. Recheck in the clinic as needed.
== END 2017-11-24 00:34 | disposition home or self-care (01) ==
LOC: JP.ED 22:23
DX: G43.909 Migraine, unspecified, not intractable, without status migrainosus (principal); I10 Essential (primary) hypertension; E78.00 Pure hypercholesterolemia, unspecified; J45.909 Unspecified asthma, uncomplicated; K21.9 Gastro-esophageal reflux disease without esophagitis; F17.210 Nicotine dependence, cigarettes, uncomplicated; Z79.899 Other long term (current) drug therapy; Z88.8 Allergy status to other drugs, medicaments and biological substances
CPT/HCPCS: 96372; 99283-25; J1200; J1885; J2550

== ENCOUNTER 2017-12-03 17:20 | Emergency (ER) | payer MEDICAID ==
[2017-12-03 17:37] VITALS: BP 120/76
[2017-12-03] MEDS ORDERED: Ketorolac 60 MG/2 ML SDV IM ONE (18:24)
--- NOTE | 2017-12-03 18:28 | EDM.PDOC ---
ED HPI GENERAL MEDICAL PROBLEM - General Chief Complaint: ENT Problem Stated Complaint: JAW PAIN/TOOTH EXTRACTION Time Seen by Provider: 12/03/17 18:13 Source of Information: Reports: Patient, Family, RN Notes Reviewed History Limitations: Reports: No Limitations - History of Present Illness INITIAL COMMENTS - FREE TEXT/NARRATIVE: 37-year-old female presents to emergency department today complaint of jaw pain , she had dental extraction 3 days prior has been using hydrocodone for pain medication unfortunate she is out she is not had any fevers from her description it sounds like a difficult procedure. - Related Data Allergies Allergy/AdvReac Type Severity Reaction Status Date / Time ondansetron AdvReac Headache Verified 12/03/17 17:37 [From Zofran (as hydrochloride)] Home Meds: Home Meds Benazepril [Lotensin] 20 mg PO DAILY 02/24/17 [History] Metoprolol Succinate 25 mg PO DAILY 02/24/17 [History] QUEtiapine [SEROquel] 600 mg PO BEDTIME 02/24/17 [History] lamoTRIgine [Lamictal XR] 200 mg PO DAILY 02/24/17 [History] ALPRAZolam [Xanax] 1 mg PO ASDIRECTED PRN 09/28/17 [History] Omeprazole [priLOSEC OTC] 20 mg PO DAILY 11/06/17 [History] Past Medical History HEENT History: Reports: Impaired Vision Cardiovascular History: Reports: Arrhythmia, Blood Clots/VTE/DVT, High Cholesterol, Hypertension, Other (See Below) Other Cardiovascular History: SVT Respiratory History: Reports: Asthma, Bronchitis, Recurrent, Pneumonia, Recurrent Gastrointestinal History: Reports: GERD, Irritable Bowel Syndrome 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: 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, Musculoskeletal History: Reports: Back Pain, Chronic, Fracture Neurological History: Reports: Concussion, Headaches, Chronic Psychiatric History: Reports: Anxiety, Bipolar, Depression, Psych Hospitalization(s), Suicide Attempt Endocrine/Metabolic History: Reports: Obesity/BMI 30+ - Infectious Disease History Infectious Disease History: Reports: Chicken Pox - Past Surgical History Cardiovascular Surgical History: Reports: Cardiac Ablation GI Surgical History: Reports: Appendectomy, Cholecystectomy, Colonoscopy, EGD, Yue Fundoplication Female Surgical History: Reports: Hysterectomy, Salpingo-Oophorectomy Social & Family History - Tobacco Use Smoking Status *Q: Current Every Day Smoker Years of Tobacco use: 15 Packs/Tins Daily: 1 - Caffeine Use Caffeine Use: Reports: Soda Caffeine Use Comment: havent any caffeine for 4 days now - Recreational Drug Use Recreational Drug Use: No ED ROS ENT - Review of Systems Review Of Systems: See Below Constitutional: Denies: Fever, Chills HEENT: Reports: Other (Job pain) Respiratory: Reports: No Symptoms Cardiovascular: Reports: No Symptoms GI/Abdominal: Reports: No Symptoms : Reports: No Symptoms ED EXAM, ENT - Physical Exam Exam: See Below Text/Narrative:: Mouth mucosa is moist and pink no erythema or exudate noted soft palate tongue is midline she does have a missing tooth position #19 it appears to be healing well does have a little bit of edema on that side of the face and tender to palpation Exam Limited By: No Limitations General Appearance: Alert, WD/WN, No Apparent Distress Eye Exam: Bilateral Eye: Normal Inspection Head: Normocephalic, Facial Swelling Neck: Normal Inspection, Supple, Non-Tender, Full Range of Motion Respiratory/Chest: No Respiratory Distress, Lungs Clear, No Accessory Muscle Use , Wheezing Cardiovascular: Regular Rate, Rhythm, No Murmur Course - Vital Signs Last Recorded V/S: Last Vital Signs Temp 97.4 F 12/03/17 17:42 Pulse 92 12/03/17 17:42 Resp 16 12/03/17 17:42 BP 120/76 12/03/17 17:42 Pulse Ox 100 12/03/17 17:42 - Orders/Labs/Meds Labs: Laboratory Tests 12/03/17 12/03/17 12/03/17 Range/Units 18:34 18:34 18:34 WBC 7.8 (4.5-11.0) K/uL RBC 4.30 (3.30-5.50) M/uL Hgb 13.1 (12.0-15.0) g/dL Hct 37.6 (36.0-48.0) % MCV 87 (80-98) fL MCH 31 (27-31) pg MCHC 35 (32-36) % Plt Count 264 (150-400) K/uL Neut % (Auto) 57 (36-66) % Lymph % (Auto) 30 (24-44) % [place] % (Auto) 6 (2-6) % Eos % (Auto) 6 H (2-4) % Baso % (Auto) 1 (0-1) % Sodium 143 (140-148) mmol/L Potassium 4.1 (3.6-5.2) mmol/L Chloride 108 (100-108) mmol/L Carbon Dioxide 28 (21-32) mmol/L Anion Gap 7.2 (5.0-14.0) mmol/L BUN 11 (7-18) mg/dL Creatinine 0.9 (0.6-1.0) mg/dL Est Cr Clr Drug Dosing 79.33 mL/min Estimated GFR (MDRD) > 60 (>60) Glucose 102 (74-106) mg/dL Lactic Acid 0.7 (0.4-2.0) mmol/L Calcium 9.3 (8.5-10.1) mg/dL Total Bilirubin 0.3 D (0.2-1.0) mg/dL AST 20 (15-37) U/L ALT 33 (12-78) U/L Alkaline Phosphatase 97 (46-116) U/L C-Reactive Protein 3.13 H (0.0-0.3) mg/dL Total Protein 6.7 (6.4-8.2) g/dL Albumin 3.6 (3.4-5.0) g/dL Globulin 3.1 (2.3-3.5) g/dL Albumin/Globulin Ratio 1.2 (1.2-2.2) Meds: Medications Discontinued Medications Generic Name Dose Route Start Last Admin Trade Name Freq PRN Reason Stop Dose Admin Ketorolac Tromethamine 60 mg 12/03/17 18:24 12/03/17 18:32 Toradol IM 12/03/17 18:25 60 mg ONETIME ONE Administration Departure - Departure Time of Disposition: 19:26 Disposition: Home, Self-Care 01 Condition: Good Clinical Impression: Pain, dental - Discharge Information Referrals: Medina Casas PA [Primary Care Provider] - Forms: ED Department Discharge Additional Instructions: Use ibuprofen for baseline pain control, use hydrocodone for breakthrough pain please call to the dental clinic on Tuesday for further evaluation - Assessment/Plan Plan: Assessment Acuity = acute Site and laterality = dental pain Etiology = secondary to tooth extraction #19 Manifestations = none Location of injury = Home Lab values = CBC, CMP within normal limits lactic acid 1.9 normal Plan She received minimal relief from the Toradol injection discussed options with her she would like to try hydrocodone at home before prescription written for one tab by mouth 3 times a day when necessary she will call to the dental clinic on Tuesday for further evaluation This note was dictated using [employer] voice recognition software please call with any questions on syntax or kristina.
[2017-12-03] MEDS ORDERED: Acetaminophen/HYDROcodone 325-5 MG Tab PO ONE (19:37)
== END 2017-12-03 19:41 | disposition home or self-care (01) ==
LOC: JP.ED 17:20
DX: K08.89 Other specified disorders of teeth and supporting structures (principal); I10 Essential (primary) hypertension; E78.00 Pure hypercholesterolemia, unspecified; K21.9 Gastro-esophageal reflux disease without esophagitis; Z88.8 Allergy status to other drugs, medicaments and biological substances; Z79.899 Other long term (current) drug therapy; F17.210 Nicotine dependence, cigarettes, uncomplicated
CPT/HCPCS: 36415; 80053; 83605; 85025; 86140; 96372; 99284; A9270; J1885

== ENCOUNTER 2017-12-26 21:24 | Emergency (ER) | payer MEDICAID ==
[2017-12-26 21:32] VITALS: BP 126/76
--- NOTE | 2017-12-26 22:20 | EDM.PDOC ---
ED HPI GENERAL MEDICAL PROBLEM - General Chief Complaint: Chest Pain Stated Complaint: CHEST PAIN / LIGHTHEADED / TIRED Time Seen by Provider: 12/26/17 21:54 Source of Information: Reports: Patient, Old Records, RN Notes Reviewed History Limitations: Reports: No Limitations - History of Present Illness INITIAL COMMENTS - FREE TEXT/NARRATIVE: here with her Chief complaint Episodes of racing heart and chest pressure History of present illness 37-year-old female diagnosed with SVT who underwent an ablation about 5 years ago, initially helpful but since then has had recurrent episodes of SVT. Most the episodes are brief. she believes she is having 1-2 episodes a day on average, most of them associated with chest pressure. She felt chest pressure intermittently over the last 3 days. She was going in and out of SVT. At one point she did calculate or counter heart rate 180. History includes SVT with ablation, cardiac catheter complicated by DVT of the right upper extremity, pneumonia asthma GERD bipolar disorder anxiety - Related Data Allergies Allergy/AdvReac Type Severity Reaction Status Date / Time ondansetron AdvReac Headache Verified 12/26/17 21:40 [From Zofran (as hydrochloride)] Home Meds: Home Meds Benazepril [Lotensin] 20 mg PO DAILY 02/24/17 [History] Metoprolol Succinate 25 mg PO DAILY 02/24/17 [History] QUEtiapine [SEROquel] 600 mg PO BEDTIME 02/24/17 [History] lamoTRIgine [Lamictal XR] 200 mg PO DAILY 02/24/17 [History] ALPRAZolam [Xanax] 1 mg PO ASDIRECTED PRN 09/28/17 [History] Omeprazole [priLOSEC OTC] 20 mg PO DAILY 11/06/17 [History] Past Medical History HEENT History: Reports: Impaired Vision Cardiovascular History: Reports: Arrhythmia, Blood Clots/VTE/DVT, High Cholesterol, Hypertension, Other (See Below) Other Cardiovascular History: SVT Respiratory History: Reports: Asthma, Bronchitis, Recurrent, Pneumonia, Recurrent Gastrointestinal History: Reports: GERD, Irritable Bowel 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: Reports: 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, Musculoskeletal History: Reports: Back Pain, Chronic, Fracture Neurological History: Reports: Concussion, Headaches, Chronic Psychiatric History: Reports: Anxiety, Bipolar, Depression, Psych Hospitalization(s), Suicide Attempt Endocrine/Metabolic History: Reports: Obesity/BMI 30+ - Infectious Disease History Infectious Disease History: Reports: Chicken Pox - Past Surgical History Cardiovascular Surgical History: Reports: Cardiac Ablation GI Surgical History: Reports: Appendectomy, Cholecystectomy, Colonoscopy, EGD, Yue Fundoplication Female Surgical History: Reports: Hysterectomy, Salpingo-Oophorectomy Social & Family History - Tobacco Use Smoking Status *Q: Current Every Day Smoker Years of Tobacco use: 15 Packs/Tins Daily: 1 - Caffeine Use Caffeine Use: Reports: Soda Caffeine Use Comment: havent any caffeine for 4 days now - Recreational Drug Use Recreational Drug Use: No ED ROS GENERAL - Review of Systems Review Of Systems: See Below Constitutional: Reports: No Symptoms HEENT: Reports: No Symptoms Respiratory: Denies: Pleuritic Chest Pain Cardiovascular: Reports: Chest Pain (pressure), Palpitations (racing heart). Denies: Syncope GI/Abdominal: Reports: No Symptoms Skin: Reports: No Symptoms Neurological: Reports: No Symptoms ED EXAM, GENERAL - Physical Exam Exam: See Below Exam Limited By: No Limitations General Appearance: Alert, No Apparent Distress, Other (flat affect, vital signs normal, no difficulty speaking or breathingN) Eye Exam: Bilateral Eye: Normal Inspection Neck: Normal Inspection Respiratory/Chest: No Respiratory Distress, Lungs Clear Cardiovascular: Normal Peripheral Pulses, Regular Rate, Rhythm, No Murmur Extremities: Normal Inspection Neurological: Alert, Oriented Course - Vital Signs Last Recorded V/S: Last Vital Signs Temp 35.8 C 12/26/17 21:39 Pulse 93 12/26/17 21:39 Resp 16 12/26/17 21:39 BP 126/76 12/26/17 21:39 Pulse Ox 98 12/26/17 21:39 - Re-Assessments/Exams Free Text/Narrative Re-Assessment/Exam: 12/26/17 22:18 37-year-old female with recurrent SVT, reports multiple episodes over the last 3 days. In normal sinus rhythm here. Reports her heart rate and episodes of 180 at times Follow-up with cardiology, may need ablation if she can undergo this again In the meantime increase metoprolol from 25 mg daily to 25 mg twice daily starting tonight Follow-up with primary care 1 week return to emergency if prolonged episodes Departure - Departure Time of Disposition: 22:19 Disposition: Home, Self-Care 01 Condition: Fair Clinical Impression: Paroxysmal SVT (supraventricular tachycardia) Instructions: Supraventricular Tachycardia, Adult, [id number], Supraventricular Tachycardia, Adult Referrals: Medina Casas PA [Primary Care Provider] - Forms: ED Department Discharge Care Plan Goals: increase metoprolol to 25 mg twice daily Make an appointment to be rechecked by your doctor within the next week to discuss whether to do Holter monitoring again to determine if he needed change in medication or to see the nutritional services cook talk about possible ablation again Return to emergency if prolonged SVT that does not return to normal rhythm
== END 2017-12-26 22:33 | disposition home or self-care (01) ==
LOC: JP.ED 21:24
DX: I47.1 Supraventricular tachycardia (principal); K21.9 Gastro-esophageal reflux disease without esophagitis; I10 Essential (primary) hypertension; F17.210 Nicotine dependence, cigarettes, uncomplicated; E66.9 Obesity, unspecified; Z88.8 Allergy status to other drugs, medicaments and biological substances; Z79.899 Other long term (current) drug therapy
CPT/HCPCS: 99285

== ENCOUNTER 2018-01-08 16:53 | Emergency (ER) | payer MEDICAID ==
--- NOTE | 2018-01-08 18:18 | EDM.PDOC ---
ED HPI GENERAL MEDICAL PROBLEM - General Chief Complaint: Cardiovascular Problem Stated Complaint: ABD PAIN Time Seen by Provider: 01/08/18 18:16 Source of Information: Reports: Patient, Family History Limitations: Reports: No Limitations - History of Present Illness INITIAL COMMENTS - FREE TEXT/NARRATIVE: pt arrived with left sided chest pin and sob. She has been having painfor several monthes but this is getting worse. She thinks she is having svt about 12 times daily. Onset: Gradual Duration: Day(s): Location: Reports: Chest Quality: Reports: Sharp, Stabbing, Other ( coms on when her heart rate is rapid. ) Associated Symptoms: Reports: Chest Pain, Shortness of Breath, Other ( rapid heart rhythm. ) Middle Chest Pain Score (Numeric/FACES): 6 - Related Data Allergies Allergy/AdvReac Type Severity Reaction Status Date / Time ondansetron AdvReac Headache Verified 01/08/18 17:32 [From Zofran (as hydrochloride)] Home Meds: Home Meds Benazepril [Lotensin] 20 mg PO DAILY 02/24/17 [History] Metoprolol Succinate 25 mg PO BID 02/24/17 [History] QUEtiapine [SEROquel] 600 mg PO BEDTIME 02/24/17 [History] lamoTRIgine [Lamictal XR] 200 mg PO DAILY 02/24/17 [History] ALPRAZolam [Xanax] 1 mg PO BID PRN 09/28/17 [History] Omeprazole [priLOSEC OTC] 20 mg PO DAILY 11/06/17 [History] Past Medical History HEENT History: Reports: Impaired Vision Cardiovascular History: Reports: Arrhythmia, Blood Clots/VTE/DVT, High Cholesterol, Hypertension, Other (See Below) Other Cardiovascular History: SVT Respiratory History: Reports: Asthma, Bronchitis, Recurrent, Pneumonia, Recurrent Gastrointestinal History: Reports: GERD, 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 Bowel 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: 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, Musculoskeletal History: Reports: Back Pain, Chronic, Fracture Neurological History: Reports: Concussion, Headaches, Chronic Psychiatric History: Reports: Anxiety, Bipolar, Depression, Psych Hospitalization(s), Suicide Attempt Endocrine/Metabolic History: Reports: Obesity/BMI 30+ - Infectious Disease History Infectious Disease History: Reports: Chicken Pox - Past Surgical History Cardiovascular Surgical History: Reports: Cardiac Ablation GI Surgical History: Reports: Appendectomy, Cholecystectomy, Colonoscopy, EGD, Yue Fundoplication Female Surgical History: Reports: Hysterectomy, Salpingo-Oophorectomy Social & Family History - Tobacco Use Smoking Status *Q: Unknown Ever Smoked Years of Tobacco use: 15 Packs/Tins Daily: 1 - Caffeine Use Caffeine Use: Reports: Soda Caffeine Use Comment: havent any caffeine for 4 days now - Recreational Drug Use Recreational Drug Use: No ED ROS GENERAL - Review of Systems Review Of Systems: See Below Constitutional: Reports: No Symptoms HEENT: Reports: Eye Discharge Respiratory: Reports: No Symptoms Cardiovascular: Reports: Chest Pain, Other (left sided chest pain when she has the rapid rhythm. Her heart rate is up as high as 180. ) Endocrine: Reports: No Symptoms GI/Abdominal: Reports: No Symptoms : Reports: No Symptoms Musculoskeletal: Reports: No Symptoms Skin: Reports: No Symptoms Neurological: Reports: No Symptoms Psychiatric: Reports: Anxiety ED EXAM, GENERAL - Physical Exam Exam: See Below Free Text/Narrative:: pt arrived with left sided chest pain. The pt has been having at least 12 times daily. She hopes to see her plumbing assembler Exam Limited By: No Limitations General Appearance: Alert, No Apparent Distress, Anxious, Other (pt was painfree since she hs been in the room. On arrival ) Ears: Normal TMs Nose: Normal Inspection Throat/Mouth: Normal Inspection Head: Atraumatic Neck: Normal Inspection Respiratory/Chest: No Respiratory Distress Cardiovascular: Regular Rate, Rhythm GI/Abdominal: Soft, Non-Tender, Other (Female) Exam: Deferred Rectal (Female) Exam: Deferred Back Exam: Normal Inspection Extremities: Normal Inspection Neurological: Alert, Oriented, Normal Cognition Psychiatric: Normal Affect Course - Vital Signs Last Recorded V/S: Last Vital Signs Temp 36.3 C 01/08/18 17:26 Pulse 113 H 01/08/18 18:44 Resp 17 01/08/18 18:30 BP 106/53 L 01/08/18 18:30 Pulse Ox 94 L 01/08/18 18:44 - Orders/Labs/Meds Orders: Active Orders 24 hr Category Date Time Status EKG Documentation Completion [RC] ASDIRECTED Care 01/08/18 17:42 Active Chest 1V Frontal [CR] Stat Exams 01/08/18 18:15 Stop Req Chest 1V Frontal [CR] Stat Exams 01/08/18 18:19 Stop Req Chest 2V [CR] Stat Exams 01/08/18 17:40 Taken EKG 12 Lead [EK] Routine Ther 01/08/18 17:42 Ordered Labs: Laboratory Tests 01/08/18 01/08/18 01/08/18 Range/Units 17:53 17:53 17:53 WBC 7.9 (4.5-11.0) K/uL RBC 4.13 (3.30-5.50) M/uL Hgb 12.8 (12.0-15.0) g/dL Hct 36.4 (36.0-48.0) % MCV 88 (80-98) fL MCH 31 (27-31) pg MCHC 35 (32-36) % Plt Count 260 (150-400) K/uL Neut % (Auto) 45 (36-66) % Lymph % (Auto) 41 (24-44) % [place] % (Auto) 6 (2-6) % Eos % (Auto) 7 H (2-4) % Baso % (Auto) 1 (0-1) % Sodium 145 (140-148) mmol/L Potassium 3.9 (3.6-5.2) mmol/L Chloride 107 (100-108) mmol/L Carbon Dioxide 29 (21-32) mmol/L Anion Gap 9.4 (5.0-14.0) mmol/L BUN 13 (7-18) mg/dL Creatinine 0.8 (0.6-1.0) mg/dL Est Cr Clr Drug Dosing 87.48 mL/min Estimated GFR (MDRD) > 60 (>60) Glucose 89 (74-106) mg/dL Calcium 8.6 (8.5-10.1) mg/dL Magnesium (1.8-2.4) mg/dL Total Bilirubin 0.1 L D (0.2-1.0) mg/dL AST 19 (15-37) U/L ALT 21 (12-78) U/L Alkaline Phosphatase 107 (46-116) U/L Troponin I < 0.017 (0.000-0.056) ng/mL Total Protein 6.4 (6.4-8.2) g/dL Albumin 3.2 L (3.4-5.0) g/dL Globulin 3.2 (2.3-3.5) g/dL Albumin/Globulin Ratio 1.0 L (1.2-2.2) 01/08/18 Range/Units 19:00 WBC (4.5-11.0) K/uL RBC (3.30-5.50) M/uL Hgb (12.0-15.0) g/dL Hct (36.0-48.0) % MCV (80-98) fL MCH (27-31) pg MCHC (32-36) % Plt Count (150-400) K/uL Neut % (Auto) (36-66) % Lymph % (Auto) (24-44) % [place] % (Auto) (2-6) % Eos % (Auto) (2-4) % Baso % (Auto) (0-1) % Sodium (140-148) mmol/L Potassium (3.6-5.2) mmol/L Chloride (100-108) mmol/L Carbon Dioxide (21-32) mmol/L Anion Gap (5.0-14.0) mmol/L BUN (7-18) mg/dL Creatinine (0.6-1.0) mg/dL Est Cr Clr Drug Dosing mL/min Estimated GFR (MDRD) (>60) Glucose (74-106) mg/dL Calcium (8.5-10.1) mg/dL Magnesium 2.0 (1.8-2.4) mg/dL Total Bilirubin (0.2-1.0) mg/dL AST (15-37) U/L ALT (12-78) U/L Alkaline Phosphatase (46-116) U/L Troponin I (0.000-0.056) ng/mL Total Protein (6.4-8.2) g/dL Albumin (3.4-5.0) g/dL Globulin (2.3-3.5) g/dL Albumin/Globulin Ratio (1.2-2.2) - Re-Assessments/Exams Free Text/Narrative Re-Assessment/Exam: 01/08/18 19:31 pt arrived with left sided chest pain and at least 12 episodes of rapid heart rhythm. She is pain free at this time. She see a plumbing assembler in the [facility]. She has had an ablation for a recurrent svt. 01/08/18 19:33 pt has a normal trop and her other lab work looks good. She has a chest xray which was ok. She has not had any rhythm problems since she has been monitored. She was offered admission. but after some thought she decided to go to [facility] where her plumbing assembler is. Departure - Departure Time of Disposition: 19:38 Disposition: Home, Self-Care 01 Condition: Fair Clinical Impression: Tachycardia, Atypical chest pain Referrals: Medina Casas PA [Primary Care Provider] - Forms: ED Department Discharge Care Plan Goals: see caediologist in [facility] as soon as possible. rtc if she would get worse. - My Orders Last 24 Hours: My Active Orders 01/08/18 18:15 Chest 1V Frontal [CR] Stat 01/08/18 18:19 Chest 1V Frontal [CR] Stat - Assessment/Plan Last 24 Hours: My Active Orders 01/08/18 18:15 Chest 1V Frontal [CR] Stat 01/08/18 18:19 Chest 1V Frontal [CR] Stat
[2018-01-08 18:47] VITALS: BP 106/53
--- NOTE | 2018-01-09 08:39 | CR ---
Chest 2V FINDINGS: The heart and vascular structures are normal in appearance. No infiltrates or effusions are demonstrated. The skeletal structures are unremarkable. IMPRESSION: Negative exam.
== END 2018-01-08 19:47 | disposition home or self-care (01) ==
LOC: JP.ED 16:53
DX: R07.89 Other chest pain (principal); R00.0 Tachycardia, unspecified; I10 Essential (primary) hypertension; E78.00 Pure hypercholesterolemia, unspecified; J45.909 Unspecified asthma, uncomplicated; F41.9 Anxiety disorder, unspecified; F32.9 Major depressive disorder, single episode, unspecified; K21.9 Gastro-esophageal reflux disease without esophagitis; Z79.899 Other long term (current) drug therapy; Z88.8 Allergy status to other drugs, medicaments and biological substances
CPT/HCPCS: 36415; 71046; 71046-26; 80053; 83735; 84484; 85025; 93005; 99284-25

== ENCOUNTER 2018-01-11 21:53 | Emergency (ER) | payer MEDICAID ==
[2018-01-11 22:08] VITALS: BP 112/71
--- NOTE | 2018-01-11 22:30 | EDM.PDOC ---
ED HPI GENERAL MEDICAL PROBLEM - General Chief Complaint: Skin Complaint Stated Complaint: REACTION TO ADHESIVE Time Seen by Provider: 01/11/18 22:05 Source of Information: Reports: Patient History Limitations: Reports: No Limitations - History of Present Illness INITIAL COMMENTS - FREE TEXT/NARRATIVE: 37-year-old female had a Holter monitor applied today and almost instantly felt itchy from the adhesive tape. She's been scratching around the tape all evening and came in to wonder if there is anything that can be done. No other symptoms. Onset: Sudden (As soon as the tape was applied) Severity: Mild - Related Data Allergies Allergy/AdvReac Type Severity Reaction Status Date / Time ondansetron AdvReac Headache Verified 01/11/18 22:09 [From Zofran (as hydrochloride)] Home Meds: Home Meds Benazepril [Lotensin] 20 mg PO DAILY 02/24/17 [History] Metoprolol Succinate 25 mg PO BID 02/24/17 [History] QUEtiapine [SEROquel] 600 mg PO BEDTIME 02/24/17 [History] lamoTRIgine [Lamictal XR] 200 mg PO DAILY 02/24/17 [History] ALPRAZolam [Xanax] 1 mg PO BID PRN 09/28/17 [History] Omeprazole [priLOSEC OTC] 20 mg PO DAILY 11/06/17 [History] Past Medical History HEENT History: Reports: Impaired Vision Cardiovascular History: Reports: Arrhythmia, Blood Clots/VTE/DVT, High Cholesterol, Hypertension, Other (See Below) Other Cardiovascular History: SVT Respiratory History: Reports: Asthma, Bronchitis, Recurrent, Pneumonia, Recurrent Gastrointestinal History: Reports: GERD, 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 Bowel 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, Musculoskeletal History: Reports: Back Pain, Chronic, Fracture Neurological History: Reports: Concussion, Headaches, Chronic Psychiatric History: Reports: Anxiety, Bipolar, Depression, Psych Hospitalization(s), Suicide Attempt Endocrine/Metabolic History: Reports: Obesity/BMI 30+ - Infectious Disease History Infectious Disease History: Reports: Chicken Pox - Past Surgical History Cardiovascular Surgical History: Reports: Cardiac Ablation GI Surgical History: Reports: Appendectomy, Cholecystectomy, Colonoscopy, EGD, Yue Fundoplication Female Surgical History: Reports: Hysterectomy, Salpingo-Oophorectomy Social & Family History - Tobacco Use Smoking Status *Q: Current Every Day Smoker Years of Tobacco use: 24 Packs/Tins Daily: 1 - Caffeine Use Caffeine Use: Reports: Soda Caffeine Use Comment: havent any caffeine for 4 days now - Recreational Drug Use Recreational Drug Use: No ED ROS GENERAL - Review of Systems Review Of Systems: See Below Constitutional: Denies: Fever HEENT: Denies: Throat Pain, Throat Swelling Respiratory: Denies: Shortness of Breath Skin: Reports: Erythema (Erythema between the areas of adhesive tape from scratching) ED EXAM, SKIN/RASH Exam: See Below Exam Limited By: No Limitations General Appearance: Alert, No Apparent Distress Respiratory/Chest: No Respiratory Distress, Lungs Clear Cardiovascular: Regular Rate, Rhythm Skin: Other (Patient has 3 separate areas of taped cardiac monitors on the anterior chest. There is some erythema from scratching around the tape, however when the tape was lifted the skin underneath look fine without erythema, lesions or edema) Course - Vital Signs Last Recorded V/S: Last Vital Signs Temp 97.6 F 01/11/18 22:06 Pulse 86 01/11/18 22:06 Resp 16 01/11/18 22:06 BP 112/71 01/11/18 22:06 Pulse Ox 100 01/11/18 22:06 - Re-Assessments/Exams Free Text/Narrative Re-Assessment/Exam: 01/11/18 22:28 I don't see any evidence of an actual allergic reaction to the tape. It was removed however and the leads were stabilized with OpSite clear Tegaderm. She can recheck tomorrow if she is not tolerating this as well. Departure - Departure Time of Disposition: 22:50 Disposition: Home, Self-Care 01 Condition: Good Clinical Impression: Itching with irritation - Discharge Information Instructions: Pruritus Referrals: Medina Casas PA [Primary Care Provider] - Forms: ED Department Discharge Care Plan Goals: Recheck tomorrow if symptoms persist. Try to keep the leads in place tonight.
== END 2018-01-11 22:50 | disposition home or self-care (01) ==
LOC: JP.ED 21:53
DX: L29.9 Pruritus, unspecified (principal); E78.00 Pure hypercholesterolemia, unspecified; I10 Essential (primary) hypertension; F17.210 Nicotine dependence, cigarettes, uncomplicated; Z88.8 Allergy status to other drugs, medicaments and biological substances; Z79.899 Other long term (current) drug therapy
CPT/HCPCS: 99283

== ENCOUNTER 2018-01-28 18:56 | Emergency (ER) | payer MEDICAID ==
--- NOTE | 2018-01-28 19:26 | EDM.PDOC ---
ED HPI GENERAL MEDICAL PROBLEM - General Chief Complaint: Back Pain or Injury Stated Complaint: BACK PAIN Time Seen by Provider: 01/28/18 19:15 Source of Information: Reports: Patient, Family History Limitations: Reports: No Limitations - History of Present Illness INITIAL COMMENTS - FREE TEXT/NARRATIVE: 37-year-old female who visits the emergency room on a fairly regular basis is in with back discomfort, and her urine has a strong odor. She has no fever and no dysuria. She has notices for the last 2 months, has not had it checked out. She was seen by orthopedics for back pain 3 weeks ago at the clinic. Location: Reports: Back Severity: Mild Associated Symptoms: Denies: Cough, Fever/Chills, Headaches, Loss of Appetite, Nausea/Vomiting, Shortness of Breath Back Pain Score (Numeric/FACES): 10 - Related Data Allergies Allergy/AdvReac Type Severity Reaction Status Date / Time ondansetron AdvReac Headache Verified 01/28/18 19:07 [From Zofran (as hydrochloride)] Home Meds: Home Meds Benazepril [Lotensin] 20 mg PO DAILY 02/24/17 [History] Metoprolol Succinate 25 mg PO BID 02/24/17 [History] QUEtiapine [SEROquel] 600 mg PO BEDTIME 02/24/17 [History] lamoTRIgine [Lamictal XR] 200 mg PO DAILY 02/24/17 [History] ALPRAZolam [Xanax] 1 mg PO BID PRN 09/28/17 [History] Omeprazole [priLOSEC OTC] 20 mg PO DAILY 11/06/17 [History] Varenicline Tartrate [Chantix] 1 cap PO DAILY 01/28/18 [History] Past Medical History HEENT History: Reports: Impaired Vision Cardiovascular History: Reports: Arrhythmia, Blood Clots/VTE/DVT, High Cholesterol, Hypertension, Other (See Below) Other Cardiovascular History: SVT Respiratory History: Reports: Asthma, Bronchitis, Recurrent, Pneumonia, Recurrent Gastrointestinal History: Reports: GERD, Irritable Bowel Syndrome 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: Reports: 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, Musculoskeletal History: Reports: Back Pain, Chronic, Fracture Neurological History: Reports: Concussion, Headaches, Chronic Psychiatric History: Reports: Anxiety, Bipolar, Depression, Psych Hospitalization(s), Suicide Attempt Endocrine/Metabolic History: Reports: Obesity/BMI 30+ - Infectious Disease History Infectious Disease History: Reports: Chicken Pox - Past Surgical History Cardiovascular Surgical History: Reports: Cardiac Ablation GI Surgical History: Reports: Appendectomy, Cholecystectomy, Colonoscopy, EGD, Yue Fundoplication Female Surgical History: Reports: Hysterectomy, Salpingo-Oophorectomy Social & Family History - Tobacco Use Smoking Status *Q: Current Every Day Smoker Years of Tobacco use: 24 Packs/Tins Daily: 0.2 - Caffeine Use Caffeine Use: Reports: Soda Caffeine Use Comment: havent any caffeine for 4 days now - Recreational Drug Use Recreational Drug Use: No ED ROS GENERAL - Review of Systems Review Of Systems: See Below Constitutional: Denies: Fever, Chills Respiratory: Denies: Shortness of Breath Cardiovascular: Denies: Chest Pain GI/Abdominal: Denies: Abdominal Pain : Reports: Flank Pain (Bilateral). Denies: Dysuria, Frequency, Hematuria Musculoskeletal: Reports: Back Pain (Patient has chronic back pain) Skin: Reports: No Symptoms Neurological: Reports: No Symptoms ED EXAM,LOWER BACK PAIN/INJURY - Physical Exam Exam: See Below Exam Limited By: No Limitations General Appearance: Alert, No Apparent Distress Respiratory/Chest: No Respiratory Distress Back Exam: CVA Tenderness (R), CVA Tenderness (L), Other (Very difficult to examine because even the lightest palpation of the back causes her to wince with discomfort) Neurological: Alert Psychiatric: Normal Affect, Normal Mood Skin Exam: Warm, Dry Course - Vital Signs Last Recorded V/S: Last Vital Signs Temp 97.2 F 01/28/18 19:02 Pulse 72 01/28/18 19:02 Resp 16 01/28/18 19:02 BP 113/65 01/28/18 19:02 Pulse Ox 98 01/28/18 19:02 - Orders/Labs/Meds Orders: Active Orders 24 hr Category Date Time Status UA W/MICROSCOPIC [URIN] Urgent Lab 01/28/18 19:27 Ordered Labs: Laboratory Tests 01/28/18 Range/Units 19:27 Urine Color Yellow Urine Appearance Clear Urine pH 5.0 (4.5-8.0) Ur Specific Becker 1.025 (1.008-1.030) Urine Protein Negative (NEGATIVE) mg/dL Urine Glucose (UA) Normal (NEGATIVE) mg/dL Urine Ketones Negative (NEGATIVE) mg/dL Urine Occult Blood Negative (NEGATIVE) Urine Nitrite Negative (NEGATIVE) Urine Bilirubin Negative (NEGATIVE) Urine Urobilinogen Normal (NORMAL) mg/dL Ur Leukocyte Esterase Negative (NEGATIVE) Urine RBC 0-5 (0-5) Urine WBC 0-5 (0-5) Ur Epithelial Cells Few Amorphous Sediment Rare Urine Bacteria Not seen Urine Mucus Not seen - Re-Assessments/Exams Free Text/Narrative Re-Assessment/Exam: 01/28/18 19:25 Asked the patient if we could get a urine catheter specimen for accuracy and she refused. We did then get a clean catch UA. 01/28/18 19:42 Urine was completely clear, specific gravity was a on the high side of normal sign or shortness stay hydrated and increase activity as tolerated. Departure - Departure Time of Disposition: 19:51 Disposition: Home, Self-Care 01 Condition: Good Clinical Impression: Chronic back pain Qualifiers: Back pain location: thoracic back pain Back pain laterality: bilateral Qualified Code(s): M54.6 - Pain in thoracic spine - Discharge Information Instructions: Back Pain, Adult, [id number] Referrals: Medina Casas PA [Primary Care Provider] - Forms: ED Department Discharge Care Plan Goals: Recheck at the clinic to discuss options for chronic back pain treatment and therapy. Stay hydrated with lots of water, and stay as active as possible. - My Orders Last 24 Hours: My Active Orders 01/28/18 19:27 UA W/MICROSCOPIC [URIN] Urgent - Assessment/Plan Last 24 Hours: My Active Orders 01/28/18 19:27 UA W/MICROSCOPIC [URIN] Urgent
[2018-01-28 21:15] VITALS: BP 113/65
== END 2018-01-28 19:51 | disposition home or self-care (01) ==
LOC: JP.ED 18:56
DX: M54.6 Pain in thoracic spine (principal); G89.29 Other chronic pain; E78.00 Pure hypercholesterolemia, unspecified; J45.909 Unspecified asthma, uncomplicated; K21.9 Gastro-esophageal reflux disease without esophagitis; F31.9 Bipolar disorder, unspecified; F17.210 Nicotine dependence, cigarettes, uncomplicated; Z88.8 Allergy status to other drugs, medicaments and biological substances; Z79.899 Other long term (current) drug therapy
CPT/HCPCS: 81001; 99284

== ENCOUNTER 2018-02-18 15:54 | Emergency (ER) | payer MEDICAID ==
[2018-02-18] MEDS ORDERED: Ibuprofen 800 MG Tab PO ONE (17:15)
[2018-02-18] MEDS ORDERED: Albuterol/Ipratropium 3.0-0.5 MG/3 ML Neb Soln NEB ONE (18:24)
--- NOTE | 2018-02-18 18:30 | EDM.PDOC ---
ED HPI GENERAL MEDICAL PROBLEM - General Chief Complaint: ENT Problem Stated Complaint: FEVER, NAUTIOUS, LETHARGIC Time Seen by Provider: 02/18/18 16:45 Source of Information: Reports: Patient, Family History Limitations: Reports: No Limitations - History of Present Illness INITIAL COMMENTS - FREE TEXT/NARRATIVE: 37-year-old female arrives with complaints of cough, shortness of breath, headache, scratchy throat, now she lost her voice. She's been running fevers for the past 48 hours. No nausea or vomiting. Very tired. Onset: Gradual (over the past 2-3 days) Severity: Moderate Associated Symptoms: Reports: Cough, Fever/Chills, Headaches, Shortness of Breath. Denies: Nausea/Vomiting - Related Data Allergies Allergy/AdvReac Type Severity Reaction Status Date / Time ondansetron AdvReac Headache Verified 02/18/18 16:29 [From Zofran (as hydrochloride)] Home Meds: Home Meds Benazepril [Lotensin] 20 mg PO DAILY 02/24/17 [History] Metoprolol Succinate 25 mg PO BID 02/24/17 [History] QUEtiapine [SEROquel] 600 mg PO BEDTIME 02/24/17 [History] lamoTRIgine [Lamictal XR] 200 mg PO DAILY 02/24/17 [History] ALPRAZolam [Xanax] 1 mg PO BID PRN 09/28/17 [History] Omeprazole [priLOSEC OTC] 20 mg PO DAILY 11/06/17 [History] Varenicline Tartrate [Chantix] 1 cap PO DAILY 01/28/18 [History] Past Medical History HEENT History: Reports: Impaired Vision Cardiovascular History: Reports: Arrhythmia, Blood Clots/VTE/DVT, High Cholesterol, Hypertension, Other (See Below) Other Cardiovascular History: SVT Respiratory History: Reports: Asthma, Bronchitis, Recurrent, Pneumonia, Recurrent Gastrointestinal History: Reports: GERD, Irritable Bowel Syndrome 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: 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, Musculoskeletal History: Reports: Back Pain, Chronic, Fracture Neurological History: Reports: Concussion, Headaches, Chronic Psychiatric History: Reports: Anxiety, Bipolar, Depression, Psych Hospitalization(s), Suicide Attempt Endocrine/Metabolic History: Reports: Obesity/BMI 30+ - Infectious Disease History Infectious Disease History: Reports: Chicken Pox - Past Surgical History Cardiovascular Surgical History: Reports: Cardiac Ablation GI Surgical History: Reports: Appendectomy, Cholecystectomy, Colonoscopy, EGD, Yue Fundoplication Female Surgical History: Reports: Hysterectomy, Salpingo-Oophorectomy Social & Family History - Tobacco Use Smoking Status *Q: Former Smoker Years of Tobacco use: 24 Packs/Tins Daily: 0.2 Used Tobacco, but Quit: Yes Month/Year Tobacco Last Used: 01/08 - Caffeine Use Caffeine Use: Reports: Soda Caffeine Use Comment: havent any caffeine for 4 days now - Recreational Drug Use Recreational Drug Use: No ED ROS GENERAL - Review of Systems Review Of Systems: See Below Constitutional: Reports: Fever, Chills, Malaise HEENT: Reports: Throat Pain Respiratory: Reports: Shortness of Breath, Cough Cardiovascular: Denies: Chest Pain GI/Abdominal: Reports: Nausea. Denies: Abdominal Pain, Vomiting Musculoskeletal: Reports: Muscle Pain (Aches all over) Skin: Reports: No Symptoms Neurological: Reports: Headache ED EXAM, GENERAL - Physical Exam Exam: See Below Exam Limited By: No Limitations General Appearance: Alert, No Apparent Distress (Looks uncomfortable but not distressed) Throat/Mouth: Normal Inspection Head: Atraumatic Respiratory/Chest: No Respiratory Distress, Wheezing (Diffuse inspiratory and expiratory wheezes are heard, no rales or rhonchi) Cardiovascular: Regular Rate, Rhythm Extremities: Normal Inspection Neurological: Alert, Oriented Psychiatric: Normal Affect, Normal Mood Skin Exam: Warm, Dry Course - Vital Signs Last Recorded V/S: Last Vital Signs Temp 101.6 F H 02/18/18 17:28 Pulse 101 H 02/18/18 18:34 Resp 14 02/18/18 18:34 BP 112/71 02/18/18 18:34 Pulse Ox 96 02/18/18 16:36 - Orders/Labs/Meds Orders: Active Orders 24 hr Category Date Time Status RT Aerosol Therapy [RC] ASDIRECTED Care 02/18/18 18:25 Active CULTURE STREP A CONFIRMATION [] Routine Lab 02/18/18 16:46 Results INFLUENZA A+B AG SCREEN [] Stat Lab 02/18/18 16:46 Ordered STREP SCRN A RAPID W CULT CONF [] Routine Lab 02/18/18 16:46 Ordered Labs: Laboratory Tests 02/18/18 02/18/18 Range/Units 16:56 16:56 WBC 9.0 (4.5-11.0) K/uL RBC 4.34 (3.30-5.50) M/uL Hgb 13.1 (12.0-15.0) g/dL Hct 38.3 (36.0-48.0) % MCV 88 (80-98) fL MCH 30 (27-31) pg MCHC 34 (32-36) % Plt Count 263 (150-400) K/uL Neut % (Auto) 76 H (36-66) % Lymph % (Auto) 13 L (24-44) % [place] % (Auto) 9 H (2-6) % Eos % (Auto) 2 (2-4) % Baso % (Auto) 0 (0-1) % Sodium 139 L (140-148) mmol/L Potassium 4.0 (3.6-5.2) mmol/L Chloride 101 (100-108) mmol/L Carbon Dioxide 30 (21-32) mmol/L Anion Gap 12.0 (5.0-14.0) mmol/L BUN 9 (7-18) mg/dL Creatinine 0.9 (0.6-1.0) mg/dL Est Cr Clr Drug Dosing 79.33 mL/min Estimated GFR (MDRD) > 60 (>60) Glucose 103 (74-106) mg/dL Calcium 9.0 (8.5-10.1) mg/dL Total Bilirubin 0.4 D (0.2-1.0) mg/dL AST 45 H D (15-37) U/L ALT 79 H (12-78) U/L Alkaline Phosphatase 125 H (46-116) U/L Total Protein 7.0 (6.4-8.2) g/dL Albumin 3.4 (3.4-5.0) g/dL Globulin 3.6 H (2.3-3.5) g/dL Albumin/Globulin Ratio 0.9 L (1.2-2.2) Meds: Medications Discontinued Medications Generic Name Dose Route Start Last Admin Trade Name Freq PRN Reason Stop Dose Admin Albuterol/Ipratropium 3 ml 02/18/18 18:24 02/18/18 18:31 Duoneb 3.0-0.5 Mg/3 Ml NEB 02/18/18 18:25 3 ml ONETIME ONE Administration Ibuprofen 800 mg 02/18/18 17:15 02/18/18 17:28 Motrin PO 02/18/18 17:16 800 mg ONETIME ONE Administration - Re-Assessments/Exams Free Text/Narrative Re-Assessment/Exam: 02/18/18 18:28 CBC and CMP were obtained as well as a influenza antigen and rapid strep. Strep was negative, influenza is were negative. White count was normal. Patient was then given a DuoNeb along with 800 mg of oral ibuprofen for her fever and was encouraged to treat the cold symptoms conservatively. Departure - Departure Time of Disposition: 19:02 Disposition: Home, Self-Care 01 Condition: Good Clinical Impression: Viral bronchitis - Discharge Information Instructions: Acute Bronchitis, Adult, [id number] Referrals: Medina Casas PA [Primary Care Provider] - Forms: ED Department Discharge Care Plan Goals: Get rest, fluids, and continue your inhaler treatment for wheezing as needed. Treat fever if it makes you more comfortable, and return if worsening such as increasing shortness of breath or vomiting. - My Orders Last 24 Hours: My Active Orders 02/18/18 16:46 CULTURE STREP A CONFIRMATION [RM] Routine INFLUENZA A+B AG SCREEN [RM] Stat STREP SCRN A RAPID W CULT CONF [RM] Routine 02/18/18 18:25 RT Aerosol Therapy [RC] ASDIRECTED - Assessment/Plan Last 24 Hours: My Active Orders 02/18/18 16:46 CULTURE STREP A CONFIRMATION [RM] Routine INFLUENZA A+B AG SCREEN [RM] Stat STREP SCRN A RAPID W CULT CONF [RM] Routine 02/18/18 18:25 RT Aerosol Therapy [RC] ASDIRECTED
[2018-02-18 18:35] VITALS: BP 112/71
== END 2018-02-18 19:03 | disposition home or self-care (01) ==
LOC: JP.ED 15:54
DX: J20.8 Acute bronchitis due to other specified organisms (principal); B97.89 Other viral agents as the cause of diseases classified elsewhere; E78.00 Pure hypercholesterolemia, unspecified; K21.9 Gastro-esophageal reflux disease without esophagitis; J45.909 Unspecified asthma, uncomplicated; F31.9 Bipolar disorder, unspecified; F41.9 Anxiety disorder, unspecified; Z79.899 Other long term (current) drug therapy; Z88.8 Allergy status to other drugs, medicaments and biological substances; Z87.891 Personal history of nicotine dependence
CPT/HCPCS: 36415; 80053; 85025; 87081; 87430; 87804; 94640; 99284; A9270; J7620

== ENCOUNTER 2018-03-07 05:53 | Day surgery (SDC) | payer MEDICAID ==
[2018-03-07] MEDS ORDERED: Dextrose 5%-Lactated Ringers 1,000 ML IV SCH (06:30)
[2018-03-07] MEDS ORDERED: Propofol 200 MG/20 ML SDV ONE (07:11)
[2018-03-07] MEDS ORDERED: fentaNYL 100 MCG/2 ML SDV ONE (07:11)
[2018-03-07] MEDS ORDERED: Midazolam 1 MG/ML 2 ML SDV ONE (07:11)
[2018-03-07] MEDS ORDERED: Glycopyrrolate 0.2 MG/ML 2 ML SDV IVPUSH ONE (07:15)
[2018-03-07 08:34] VITALS: BP 93/65
--- NOTE | 2018-03-09 09:51 | OR ---
DATE OF PROCEDURE: 03/07/2018 PREOPERATIVE DIAGNOSIS: Dysphagia, status post Yue fundoplication. POSTOPERATIVE DIAGNOSES: 1. Dysphagia, status post Yue fundoplication. 2. Mild antral gastritis. OPERATIVE PROCEDURES: Esophagogastroduodenoscopy with: 1. Antral biopsies for CLOtest (12891). 2. Dilation of esophagus (59261). ANESTHESIA: IV sedation. INDICATION FOR PROCEDURE: This is a 37-year-old status post previous Yue fundoplication, who was in the process of going through the preoperative process for prior observation for gastric bypass. She is status post Yue fundoplication and in the past has had intermittent problems with dysphagia that had been treated adequately with esophageal dilation. Plan is to proceed with an upper GI endoscopy with biopsies and/or dilation as indicated. Potential risks including bleeding and perforation were discussed, and the patient wishes to proceed. DETAILS OF PROCEDURE: The patient was taken to the operating room and placed in a left lateral decubitus position. IV sedation was administered, after which the upper GI endoscope was passed orally through the length of esophagus into the stomach with retroflexion view of the fundus, thereafter through the pyloric channel into the proximal duodenum. Findings included normal esophagus and EG junction area. The scope was easily passed through the imprint of the fundoplication, which was normally located. There was no mechanical obstruction of this area, and retroflexion revealed a normal-appearing fundoplication from that vantage point. Within the antrum of the stomach, there was some mild patchy redness but without erosions or ulcers and the duodenum to the junction of the third and fourth portions was otherwise unremarkable. At this point, biopsies were obtained from the antrum and sent for CLOtest for H. pylori, and at that point the guidewire was then passed into the stomach and the gastroscope removed, leaving the guidewire in place. Over this, a 54-Khmer Savary dilator was passed without difficulty. This was held in position for 1 minute, after which the guidewire and the Savary dilator were removed and the procedure was then concluded. The patient was taken to the recovery room in satisfactory condition. At this point, the patient will be instructed to continue her preoperative process for prior observation for gastric bypass including ongoing dietary and psychological evaluations. Winston Khan MD /[id number]
== END 2018-03-07 08:52 | disposition home or self-care (01) ==
LOC: JP.SDS 05:53
PROVIDERS: ATTEND Surgery
DX: R13.10 Dysphagia, unspecified (principal); K29.70 Gastritis, unspecified, without bleeding; I10 Essential (primary) hypertension; Z98.890 Other specified postprocedural states; Z88.8 Allergy status to other drugs, medicaments and biological substances
CPT/HCPCS: 43239; 43248; 87081; J2250; J2704; J3010; J7042; J3490

== ENCOUNTER 2018-04-21 19:30 | Emergency (ER) | payer MEDICAID ==
[2018-04-21 20:08] VITALS: BP 121/75
--- NOTE | 2018-04-21 20:58 | EDM.PDOC ---
ED HPI GENERAL MEDICAL PROBLEM - General Chief Complaint: Upper Extremity Injury/Pain Stated Complaint: LEFT ARM,PAIN,BURNING,ITCHING Time Seen by Provider: 04/21/18 19:45 Source of Information: Reports: Patient, Family, Old Records, RN Notes Reviewed History Limitations: Reports: No Limitations - History of Present Illness INITIAL COMMENTS - FREE TEXT/NARRATIVE: 37-year-old female presents to the emergency department with complaint of burning pain in her left arm, she does have a history of a blood clot status post cardiac catheterization was on Xarelto for 6 months. She states this feels similar to prior event. No shortness of breath or chest pain she is not on any anticoagulations at this time left lower arm Pain Score (Numeric/FACES): 8 - Related Data Allergies Allergy/AdvReac Type Severity Reaction Status Date / Time ondansetron AdvReac Headache Verified 04/21/18 20:29 [From Zofran (as hydrochloride)] Home Meds: Home Meds Metoprolol Succinate 25 mg PO DAILY 02/24/17 [History] QUEtiapine [SEROquel] 600 mg PO BEDTIME 02/24/17 [History] lamoTRIgine [Lamictal XR] 150 mg PO DAILY 02/24/17 [History] ALPRAZolam [Xanax] 1 mg PO BID PRN 09/28/17 [History] Varenicline Tartrate [Chantix] 1 cap PO BID 01/28/18 [History] Benazepril [Lotensin] 5 mg PO DAILY 03/03/18 [History] Cholecalciferol (Vitamin D3) [Vitamin D] 50,000 units PO DAILY 03/03/18 [History ] Fluticasone/Salmeterol [Advair 250-50] 1 puff INH BID PRN 03/03/18 [History] Pantoprazole 20 mg PO BID 03/03/18 [History] Past Medical History HEENT History: Reports: Impaired Vision Cardiovascular History: Reports: Arrhythmia, Blood Clots/VTE/DVT, Other (See Below) Other Cardiovascular History: SVT Respiratory History: Reports: Asthma, Bronchitis, Recurrent, Pneumonia, Recurrent Gastrointestinal History: Reports: GERD, Irritable Bowel Syndrome 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: 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, Musculoskeletal History: Reports: Back Pain, Chronic, Fracture Neurological History: Reports: Concussion, Headaches, Chronic Psychiatric History: Reports: Anxiety, Bipolar, Depression, Psych Hospitalization(s), Suicide Attempt Endocrine/Metabolic History: Reports: Obesity/BMI 30+ - Infectious Disease History Infectious Disease History: Reports: Chicken Pox - Past Surgical History Cardiovascular Surgical History: Reports: Cardiac Ablation GI Surgical History: Reports: Appendectomy, Cholecystectomy, Colonoscopy, EGD, Yue Fundoplication Female Surgical History: Reports: Hysterectomy, Salpingo-Oophorectomy Musculoskeletal Surgical History: Reports: None Social & Family History - Family History Family Medical History: Noncontributory - Tobacco Use Smoking Status *Q: Former Smoker Used Tobacco, but Quit: Yes Month/Year Tobacco Last Used: february 2018 - Caffeine Use Caffeine Use: Reports: Soda Caffeine Use Comment: havent any caffeine for 4 days now - Recreational Drug Use Recreational Drug Use: No Review of Systems - Review of Systems Review Of Systems: See Below Constitutional: Reports: No Symptoms Respiratory: Reports: No Symptoms Cardiovascular: Reports: No Symptoms Musculoskeletal: Reports: Arm Pain Skin: Reports: Pruritis, Urticaria Neurological: Reports: No Symptoms ED EXAM, GENERAL - Physical Exam Exam: See Below Free Text/Narrative:: Examination of left arm I don't appreciate any erythema there is no edema noted radial pulse is +2 full range of motion of all digits she is tender to superficial touch in the anterior area of the distal forearm Exam Limited By: No Limitations General Appearance: Alert, WD/WN, No Apparent Distress Respiratory/Chest: No Respiratory Distress, Lungs Clear, Normal Breath Sounds, No Accessory Muscle Use Cardiovascular: Regular Rate, Rhythm, No Murmur Course - Vital Signs Last Recorded V/S: Last Vital Signs Temp 97.7 F 04/21/18 20:39 Pulse 105 H 04/21/18 20:39 Resp 16 04/21/18 20:39 BP 121/75 04/21/18 20:39 Pulse Ox 99 04/21/18 20:39 - Orders/Labs/Meds Labs: Laboratory Tests 04/21/18 Range/Units 20:54 D-Dimer, Quantitative < 100 (0.0-400.0) ng/mL Departure - Departure Time of Disposition: 22:03 Disposition: Home, Self-Care 01 Condition: Good Clinical Impression: Left arm pain - Discharge Information Referrals: Medina Casas PA [Primary Care Provider] - Forms: ED Department Discharge Additional Instructions: Try Benadryl topical cream for symptomatic relief, Please followup with your primary care provider in 3-5 days if not better, please call return to the emergency department with worsening of symptoms. - Assessment/Plan Plan: Assessment Acuity = acute Site and laterality = painful area right arm Etiology = unclear etiology Manifestations = none Location of injury = Home Lab values = d-dimer is negative Plan Symptomatically care try Benadryl topical, follow-up primary care 3-5 days if no improvement This note was dictated using [employer] voice recognition software please call with any questions on syntax or grammar.
== END 2018-04-21 22:18 | disposition home or self-care (01) ==
LOC: JP.ED 19:30
DX: M79.602 Pain in left arm (principal); K21.9 Gastro-esophageal reflux disease without esophagitis; Z88.8 Allergy status to other drugs, medicaments and biological substances; Z79.899 Other long term (current) drug therapy; Z87.891 Personal history of nicotine dependence
CPT/HCPCS: 36415; 85379; 99284

== ENCOUNTER 2018-05-13 17:03 | Emergency (ER) | payer MEDICAID ==
[2018-05-13 17:33] VITALS: BP 110/62
[2018-05-13] MEDS ORDERED: Sodium Chloride 0.9% 10 ML Syringe FLUSH PRN (18:05)
[2018-05-13] MEDS ORDERED: diphenhydrAMINE 50 MG/ML SDV IVPUSH ONE (18:06)
[2018-05-13] MEDS ORDERED: Ketorolac 30 MG/ML SDV IVPUSH ONE (18:06)
[2018-05-13] MEDS ORDERED: Promethazine 25 MG/ML SDV IV ONE (18:07)
--- NOTE | 2018-05-13 18:17 | EDM.PDOC ---
ED HPI GENERAL MEDICAL PROBLEM - General Chief Complaint: Headache Stated Complaint: HEADACHE Time Seen by Provider: 05/13/18 17:35 Source of Information: Reports: Patient, Family History Limitations: Reports: No Limitations - History of Present Illness INITIAL COMMENTS - FREE TEXT/NARRATIVE: Reva presents today for complaints of migraine for 4 days without relief. She states she has tried ibuprofen, acetaminophen, heat ice without relief. She also complaints of sore throat and neck pain radiating to her left ear for 7 days. She states she has tried salt water gargles with the ibuprofen without relief. - Related Data Allergies Allergy/AdvReac Type Severity Reaction Status Date / Time ondansetron AdvReac Headache Verified 05/13/18 17:39 [From Zofran (as hydrochloride)] Home Meds: Home Meds Metoprolol Succinate 25 mg PO DAILY 02/24/17 [History] QUEtiapine [SEROquel] 600 mg PO BEDTIME 02/24/17 [History] lamoTRIgine [Lamictal XR] 150 mg PO DAILY 02/24/17 [History] ALPRAZolam [Xanax] 1 mg PO BID PRN 09/28/17 [History] Varenicline Tartrate [Chantix] 1 cap PO BID 01/28/18 [History] Benazepril [Lotensin] 5 mg PO DAILY 03/03/18 [History] Cholecalciferol (Vitamin D3) [Vitamin D] 50,000 units PO DAILY 03/03/18 [History ] Fluticasone/Salmeterol [Advair 250-50] 1 puff INH BID PRN 03/03/18 [History] Pantoprazole 20 mg PO BID 03/03/18 [History] Past Medical History HEENT History: Reports: Impaired Vision Cardiovascular History: Reports: Arrhythmia, Blood Clots/VTE/DVT, Other (See Below) Other Cardiovascular History: SVT Respiratory History: Reports: Asthma, Bronchitis, Recurrent, Pneumonia, Recurrent Gastrointestinal History: Reports: GERD, Irritable Bowel Syndrome 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: Reports: 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, Musculoskeletal History: Reports: Back Pain, Chronic, Fracture Neurological History: Reports: Concussion, Headaches, Chronic Psychiatric History: Reports: Anxiety, Bipolar, Depression, Psych Hospitalization(s), Suicide Attempt Endocrine/Metabolic History: Reports: Obesity/BMI 30+ - Infectious Disease History Infectious Disease History: Reports: Chicken Pox - Past Surgical History Cardiovascular Surgical History: Reports: Cardiac Ablation GI Surgical History: Reports: Appendectomy, Cholecystectomy, Colonoscopy, EGD, Yue Fundoplication Musculoskeletal Surgical History: Reports: None Social & Family History - Family History Family Medical History: Noncontributory - Tobacco Use Smoking Status *Q: Never Smoker - Caffeine Use Caffeine Use: Reports: Soda Caffeine Use Comment: havent any caffeine for 4 days now ED ROS GENERAL - Review of Systems Review Of Systems: See Below Constitutional: Reports: Fever, Chills. Denies: Malaise, Weakness HEENT: Reports: Ear Pain, Throat Pain, Throat Swelling. Denies: Sinus Problem Respiratory: Denies: Shortness of Breath, Wheezing, Cough, Sputum Cardiovascular: Denies: Chest Pain, Dyspnea on Exertion, Edema, Lightheadedness , Palpitations, PND, Syncope Endocrine: Reports: No Symptoms GI/Abdominal: Reports: No Symptoms : Reports: No Symptoms Musculoskeletal: Reports: Neck Pain Skin: Denies: Diaphoresis, Bruising, Pruritis, Rash, Erythema, Wound Neurological: Reports: Headache. Denies: Confusion, Dizziness, Numbness, Tingling, Weakness Psychiatric: Reports: No Symptoms Hematologic/Lymphatic: Reports: No Symptoms Immunologic: Reports: No Symptoms - Physical Exam Exam: See Below Text/Narrative:: Reva presents today for complaints of headache for four days with no relief after use Exam Limited By: No Limitations General Appearance: Alert, WD/WN, Moderate Distress Eye Exam: Bilateral Eye: EOMI, Normal Inspection, PERRL Ears: Normal External Exam, Normal Canal, Hearing Grossly Normal, Normal TMs Nose: Normal Inspection, Normal Mucosa, No Blood Throat/Mouth: Normal Lips, Normal Gums, No Airway Compromise, Other (Trismus, swelling and edema to bilateral tonsils, left more then right. Lyphadenopathy to tonsilar and cerviacal nodes ) Head Exam: Atraumatic Neck: Full Range of Motion, Lymphadenopathy (R), Lymphadenopathy (L) Respiratory/Chest: No Respiratory Distress, Lungs Clear, Normal Breath Sounds, No Accessory Muscle Use, Chest Non-Tender Cardiovascular: Normal Peripheral Pulses, No Edema, No Murmur, No Rub Neuro Exam (Abbreviated): Alert, Oriented, CN II-XII Intact, Normal Cognition, Normal Gait, Normal Reflexes, No Motor/Sensory Deficits, Other (Headache) Back Exam: Normal Inspection, Full Range of Motion. No: CVA Tenderness (R), CVA Tenderness (L) Extremities: Normal Inspection, Normal Range of Motion, Non-Tender, No Pedal Edema, Normal Capillary Refill Psychiatric: Normal Affect, Normal Mood Skin Exam: Warm, Dry, Intact, Normal Color, No Rash Course - Vital Signs Last Recorded V/S: Last Vital Signs Temp 36.6 C 05/13/18 17:44 Pulse 82 05/13/18 17:44 Resp 14 05/13/18 17:44 BP 110/62 05/13/18 17:44 Pulse Ox 99 05/13/18 17:44 - Orders/Labs/Meds Orders: Active Orders 24 hr Category Date Time Status Soft Tissue Neck w Cont [CT] Stat Exams 05/13/18 18:01 Taken CULTURE STREP A CONFIRMATION [] Stat Lab 05/13/18 18:32 Results STREP SCRN A RAPID W CULT CONF [] Stat Lab 05/13/18 18:32 Ordered Iopamidol [Isovue-300 (61%)] Med 05/13/18 19:30 Active 100 ml IV . DIRECTED Sodium Chloride 0.9% [Saline Flush] Med 05/13/18 18:05 Active 10 ml FLUSH ASDIRECTED PRN Saline Lock Insert [OM.PC] Routine Oth 05/13/18 18:05 Ordered Medication Orders Iopamidol (Isovue-300 (61%)) 100 ml IV . DIRECTED [facility] Last Admin: 05/13/18 19:27 Dose: 100 ml Sodium Chloride (Saline Flush) 10 ml FLUSH ASDIRECTED PRN PRN Reason: Keep Vein Open Last Admin: 05/13/18 18:27 Dose: 10 ml Labs: Laboratory Tests 05/13/18 05/13/18 Range/Units 18:05 18:05 WBC 9.9 (4.5-11.0) K/uL RBC 4.38 (3.30-5.50) M/uL Hgb 13.5 (12.0-15.0) g/dL Hct 37.9 (36.0-48.0) % MCV 87 (80-98) fL MCH 31 (27-31) pg MCHC 36 (32-36) % Plt Count 287 (150-400) K/uL Neut % (Auto) 65 (36-66) % Lymph % (Auto) 26 (24-44) % [place] % (Auto) 6 (2-6) % Eos % (Auto) 3 (2-4) % Baso % (Auto) 1 (0-1) % Sodium 140 (140-148) mmol/L Potassium 3.9 (3.6-5.2) mmol/L Chloride 104 (100-108) mmol/L Carbon Dioxide 26 (21-32) mmol/L Anion Gap 9.7 (5.0-14.0) mmol/L BUN 18 D (7-18) mg/dL Creatinine 0.9 (0.6-1.0) mg/dL Est Cr Clr Drug Dosing 77.76 mL/min Estimated GFR (MDRD) > 60 (>60) Glucose 102 (74-106) mg/dL Calcium 8.6 (8.5-10.1) mg/dL Total Bilirubin 0.3 (0.2-1.0) mg/dL AST 26 (15-37) U/L ALT 48 (12-78) U/L Alkaline Phosphatase 120 H (46-116) U/L C-Reactive Protein 2.09 H (0.0-0.3) mg/dL Total Protein 7.2 (6.4-8.2) g/dL Albumin 3.5 (3.4-5.0) g/dL Globulin 3.7 H (2.3-3.5) g/dL Albumin/Globulin Ratio 1.0 L (1.2-2.2) Meds: Medications Generic Name Dose Route Start Last Admin Trade Name Freq PRN Reason Stop Dose Admin Iopamidol 100 ml 05/13/18 19:30 05/13/18 19:27 Isovue-300 (61%) IV 100 ml . DIRECTED DEMOND Administration Sodium Chloride 10 ml 05/13/18 18:05 05/13/18 18:27 Saline Flush FLUSH 10 ml ASDIRECTED PRN Administration Keep Vein Open Discontinued Medications Generic Name Dose Route Start Last Admin Trade Name Freq PRN Reason Stop Dose Admin Diphenhydramine HCl 50 mg 05/13/18 18:06 05/13/18 18:27 Benadryl IVPUSH 05/13/18 18:07 50 mg ONETIME ONE Administration Sodium Chloride 80 mls @ 3.5 mls/sec 05/13/18 19:26 05/13/18 19:28 Normal Saline IV 05/13/18 19:27 3 mls/sec ONETIME ONE Administration Ketorolac Tromethamine 30 mg 05/13/18 18:06 05/13/18 18:27 Toradol IVPUSH 05/13/18 18:07 30 mg ONETIME ONE Administration Lorazepam 1 mg 05/13/18 19:40 Ativan IVPUSH 05/13/18 19:41 ONETIME ONE Promethazine HCl 25 mg 05/13/18 18:07 05/13/18 18:27 Phenergan IV 05/13/18 18:08 25 mg ONETIME ONE Administration Sodium Chloride 10 ml 05/13/18 19:26 Saline Flush FLUSH 05/13/18 19:27 ONETIME ONE Patient reports improvement in migraine. - Radiology Interpretation CT Results Date: 05/13/18 (CT of neck with contrast shows focus of decreased enhancement in the inferior left tonsil measuring 1.1 x 1 cm. Most likely due to tonsillar abscess. Bilateral jugular adenopathy seen with lymph nodes measuring up to 11mm at level IIa. ) - Re-Assessments/Exams Free Text/Narrative Re-Assessment/Exam: 05/13/18 19:[address] results and plan of care with patient and her , they are in agreement with plan. Departure - Departure Time of Disposition: 19:41 Disposition: Home, Self-Care 01 Condition: Good Clinical Impression: Tonsillar abscess, Migraine - Discharge Information *PRESCRIPTION DRUG MONITORING PROGRAM REVIEWED*: Yes *COPY OF PRESCRIPTION DRUG MONITORING REPORT IN PATIENT RUIZ: Not Applicable Instructions: Migraine Headache, [id number], Peritonsillar Abscess, Easy-to- Read Referrals: Medina Casas PA [Primary Care Provider] - Forms: ED Department Discharge Additional Instructions: You have been treated and evaluated for migraine and left tonsillar abscess. You have been given IV toradol, benadryl, lorazepam and phenergan for your migraine with some relief. It would be best for you to return home, keep yourself hydrated and rest. Take augmentin 875mg by mouth twice per day for the abscess as directed. You can take baclofen as directed for muscle relaxer to help with headaches. Take ibuprofen/acetaminophen as needed for pain. Follow up with your primary provider in 7 to 10 days for follow up of tonsillar abscess and any further management or ENT referral. Return for worsening, issues or concerns. - My Orders Last 24 Hours: My Active Orders 05/13/18 18:01 Soft Tissue Neck w Cont [CT] Stat 05/13/18 18:05 Sodium Chloride 0.9% [Saline Flush] 10 ml FLUSH ASDIRECTED PRN Saline Lock Insert [OM.PC] Routine 05/13/18 18:32 CULTURE STREP A CONFIRMATION [RM] Stat STREP SCRN A RAPID W CULT CONF [RM] Stat 05/13/18 19:30 Iopamidol [Isovue-300 (61%)] 100 ml IV . DIRECTED - Assessment/Plan Last 24 Hours: My Active Orders 05/13/18 18:01 Soft Tissue Neck w Cont [CT] Stat 05/13/18 18:05 Sodium Chloride 0.9% [Saline Flush] 10 ml FLUSH ASDIRECTED PRN Saline Lock Insert [OM.PC] Routine 05/13/18 18:32 CULTURE STREP A CONFIRMATION [RM] Stat STREP SCRN A RAPID W CULT CONF [RM] Stat 05/13/18 19:30 Iopamidol [Isovue-300 (61%)] 100 ml IV . DIRECTED Assessment:: Migraine Left tonsilar abscess Plan: Patient evaluated for migraine and left tonsillar abscess. She was given IV toradol, benadryl, lorazepam and phenergan for your migraine with some relief. It would be best to return home, keep hydrated and rest. Take augmentin 875mg by mouth twice per day for the abscess as directed. She can take baclofen as directed for muscle relaxer to help with headaches. Take ibuprofen/acetaminophen as needed for pain. Follow up with primary provider in 7 to 10 days for follow up of tonsillar abscess and any further management or ENT referral. Return for worsening, issues or concerns.
[2018-05-13] MEDS ORDERED: Sodium Chloride 0.9% 80 ML IV ONE (19:26)
[2018-05-13] MEDS ORDERED: Sodium Chloride 0.9% 10 ML Syringe FLUSH ONE (19:26)
[2018-05-13] MEDS ORDERED: Iopamidol 612 MG/ML 100 ML Bottle IV SCH (19:30)
[2018-05-13] MEDS ORDERED: LORazepam 2 MG/ML SDV IVPUSH ONE (19:40)
== END 2018-05-13 20:06 | disposition home or self-care (01) ==
LOC: JP.ED 17:03
DX: G43.909 Migraine, unspecified, not intractable, without status migrainosus (principal); J36 Peritonsillar abscess; K21.9 Gastro-esophageal reflux disease without esophagitis; F41.9 Anxiety disorder, unspecified; F32.9 Major depressive disorder, single episode, unspecified; Z79.899 Other long term (current) drug therapy; Z88.8 Allergy status to other drugs, medicaments and biological substances
CPT/HCPCS: 36415; 70491; 80053; 85025; 86140; 87081; 87430; 96374; 96375; 99284; J1200; J1885; J2060; J2550; J7030; J7050; Q9967

== ENCOUNTER 2018-05-15 12:55 | Emergency (ER) | payer MEDICAID ==
[2018-05-15 13:13] VITALS: BP 102/78
[2018-05-15] MEDS ORDERED: Ketorolac 30 MG/ML SDV IVPUSH ONE (14:10)
--- NOTE | 2018-05-15 14:11 | EDM.PDOC ---
ED HPI GENERAL MEDICAL PROBLEM - General Chief Complaint: ENT Problem Stated Complaint: PAIN, ABSCESS LEFT TONSIL Time Seen by Provider: 05/15/18 13:30 Source of Information: Reports: Patient, Family History Limitations: Reports: No Limitations - History of Present Illness INITIAL COMMENTS - FREE TEXT/NARRATIVE: 37-year-old female was diagnosed 2 days ago with a peritonsillar abscess on the left, started on Augmentin and despite taking 2 days of antibiotic feel she is worsening, having increased swelling, increased difficulty swallowing and speaking. No airway obstruction or difficulty breathing. Pain is radiating and developing a headache. No fevers or chills. Onset: Gradual (Over the past several days) Location: Reports: Head, Neck, Other (Throat) Severity: Moderate Improves with: Reports: None Worsens with: Reports: Other (Swallowing, speaking or moving) Associated Symptoms: Reports: Headaches. 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 (see below) (Patient has been on Augmentin for the last 2 days) Throat Pain Score (Numeric/FACES): 10 - Related Data Allergies Allergy/AdvReac Type Severity Reaction Status Date / Time ondansetron AdvReac Headache Verified 05/13/18 17:39 [From Zofran (as hydrochloride)] Home Meds: Home Meds Metoprolol Succinate 25 mg PO DAILY 02/24/17 [History] QUEtiapine [SEROquel] 600 mg PO BEDTIME 02/24/17 [History] lamoTRIgine [Lamictal XR] 150 mg PO DAILY 02/24/17 [History] ALPRAZolam [Xanax] 1 mg PO BID PRN 09/28/17 [History] Varenicline Tartrate [Chantix] 1 cap PO BID 01/28/18 [History] Benazepril [Lotensin] 5 mg PO DAILY 03/03/18 [History] Cholecalciferol (Vitamin D3) [Vitamin D] 50,000 units PO DAILY 03/03/18 [History ] Fluticasone/Salmeterol [Advair 250-50] 1 puff INH BID PRN 03/03/18 [History] Pantoprazole 20 mg PO BID 03/03/18 [History] Past Medical History HEENT History: Reports: Impaired Vision, Other (See Below) Other HEENT History: tonsil abcess present. 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: 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, Musculoskeletal History: Reports: Back Pain, Chronic, Fracture Neurological History: Reports: Concussion, Headaches, Chronic Psychiatric History: Reports: Anxiety, Bipolar, Depression, Psych Hospitalization(s), Suicide Attempt Endocrine/Metabolic History: Reports: Obesity/BMI 30+ - Infectious Disease History Infectious Disease History: Reports: Chicken Pox - Past Surgical History Cardiovascular Surgical History: Reports: Cardiac Ablation GI Surgical History: Reports: Appendectomy, Cholecystectomy, Colonoscopy, EGD, Yue Fundoplication Musculoskeletal Surgical History: Reports: None Social & Family History - Family History Family Medical History: Noncontributory - Tobacco Use Smoking Status *Q: Never Smoker - Caffeine Use Caffeine Use: Reports: Coffee, Soda, Tea Caffeine Use Comment: havent any caffeine for 4 days now - Recreational Drug Use Recreational Drug Use: No ED ROS ENT - Review of Systems Review Of Systems: See Below Constitutional: Reports: Malaise. Denies: Fever, Chills HEENT: Reports: Throat Pain. Denies: Ear Pain Respiratory: Denies: Shortness of Breath, Cough Cardiovascular: Denies: Chest Pain GI/Abdominal: Denies: Abdominal Pain, Nausea Skin: Reports: No Symptoms Neurological: Reports: No Symptoms Psychiatric: Reports: Anxiety ED EXAM, ENT - Physical Exam Exam: See Below Exam Limited By: No Limitations General Appearance: Alert, Mild Distress Eye Exam: Bilateral Eye: EOMI Mouth/Throat: Pharyngeal Erythema, Tonsillar Swelling, Uvular Deviation, Other ( There is shifting of the left peritonsillar soft tissue) Head: Atraumatic Neck: No: Lymphadenopathy (R), Lymphadenopathy (L) Respiratory/Chest: No Respiratory Distress Course - Vital Signs Last Recorded V/S: Last Vital Signs Temp 96.8 F 05/15/18 13:13 Pulse 115 H 05/15/18 13:13 Resp 16 05/15/18 13:13 BP 102/78 05/15/18 13:13 Pulse Ox 97 05/15/18 13:13 - Orders/Labs/Meds Meds: Medications Discontinued Medications Generic Name Dose Route Start Last Admin Trade Name Freq PRN Reason Stop Dose Admin Hydromorphone HCl 0.5 mg 05/15/18 15:33 05/15/18 15:52 Dilaudid IVPUSH 05/15/18 15:34 0.5 mg ONETIME ONE Administration Sodium Chloride 74 mls @ 3.5 mls/sec 05/15/18 14:30 05/15/18 14:34 Normal Saline IV 05/15/18 14:31 3.5 mls/sec ASDIRECTED DEMOND Administration Iopamidol 100 ml 05/15/18 14:20 05/15/18 14:34 Isovue-300 (61%) IV 05/16/18 14:21 100 ml . DIRECTED PRN Administration RADIOLOGY EXAM Ketorolac Tromethamine 30 mg 05/15/18 14:10 05/15/18 14:19 Toradol IVPUSH 05/15/18 14:11 30 mg ONETIME ONE Administration - Re-Assessments/Exams Free Text/Narrative Re-Assessment/Exam: 05/15/18 15:31 CT scan was repeated and shows worsening left peritonsillar abscess. This was discussed with ENT in [place] and her will take her down to [place] for reevaluation and surgical treatment. She was given 30 mg of IV Toradol initially in the emergency room, was given 0.5 mg of IV Dilaudid before departing for [place]. Departure - Departure Time of Disposition: 16:01 Disposition: DC/Tfer to Other 70 Condition: Fair Clinical Impression: Peritonsillar abscess - Discharge Information Instructions: Peritonsillar Abscess, [id number] Referrals: Medina Casas PA [Primary Care Provider] - Forms: ED Department Discharge Care Plan Goals: Go directly to [facility] emergency room in [place] to be evaluated and treated by ENT.
[2018-05-15] MEDS ORDERED: Iopamidol 612 MG/ML 100 ML Bottle IV PRN (14:20)
--- NOTE | 2018-05-15 15:05 | CT ---
Soft Tissue Neck w Cont CLINICAL HISTORY: Left tonsillar abscess COMPARISON: 05/13/2018 TECHNIQUE: Multiple axial images were obtained of the neck with the IV infusion of iodinated contrast . Auto dosage reduction and iterative reconstruction techniques employed. FINDINGS: The nasopharynx show some soft tissue fullness on the left.. This continues downward into t he oropharynx and left tonsillar region. There is central lucency. The central lucency which is likel y central necrosis or abscess fluid has also increased in size. Performed sinuses are free of mass effect. Vallecula is clear. Vocal cords are symmetric. There are s ome scattered small lymph nodes in the neck IMPRESSION: Increase in size in left tonsillar abscess
[2018-05-15] MEDS ORDERED: HYDROmorphone 0.5 MG/0.5 ML Syringe IVPUSH ONE (15:33)
== END 2018-05-15 16:01 | disposition other institution (70) ==
LOC: JP.ED 12:55
DX: J36 Peritonsillar abscess (principal); Z79.899 Other long term (current) drug therapy
CPT/HCPCS: 70491; 96374; 96375; 99284; J1170; J1885; J7030; Q9967

== ENCOUNTER 2018-06-27 20:41 | Emergency (ER) | payer MEDICAID ==
[2018-06-27 21:04] VITALS: BP 122/60
[2018-06-27] MEDS ORDERED: HYDROmorphone 1 MG/ML Syringe IM ONE (21:27)
--- NOTE | 2018-06-27 21:34 | EDM.PDOC ---
ED HPI GENERAL MEDICAL PROBLEM - General Chief Complaint: Back Pain or Injury Stated Complaint: PINCHED NERVE IN BACK Time Seen by Provider: 06/27/18 21:15 Source of Information: Reports: Patient, Old Records, RN History Limitations: Reports: No Limitations - History of Present Illness INITIAL COMMENTS - FREE TEXT/NARRATIVE: 37 yo female with chronic low back pain due to "a pinched nerve, and disc herniation" presents with an exacerbation of her back pain from her first PT appt at 11 am today. Pain radiates down both legs R>L, this is not new. Is taking full doses of Celebrex, ibuprofen, and a muscle relaxer without relief. Does not tolerate gabapentin due to gastroparesis side effects. Has an appt in [place] tomorrow with a back specialist. 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, Other Medication(s) Lower Back Pain Score (Numeric/FACES): 9 - Related Data Allergies Allergy/AdvReac Type Severity Reaction Status Date / Time ondansetron AdvReac Headache Verified 06/27/18 21:14 [From Zofran (as hydrochloride)] Home Meds: Home Meds Metoprolol Succinate 25 mg PO DAILY 02/24/17 [History] QUEtiapine [SEROquel] 600 mg PO BEDTIME 02/24/17 [History] lamoTRIgine [Lamictal XR] 150 mg PO DAILY 02/24/17 [History] ALPRAZolam [Xanax] 1 mg PO BID PRN 09/28/17 [History] Varenicline Tartrate [Chantix] 1 cap PO BID 01/28/18 [History] Benazepril [Lotensin] 5 mg PO DAILY 03/03/18 [History] Cholecalciferol (Vitamin D3) [Vitamin D] 50,000 units PO DAILY 03/03/18 [History ] Fluticasone/Salmeterol [Advair 250-50] 1 puff INH BID PRN 03/03/18 [History] Pantoprazole 20 mg PO BID 03/03/18 [History] Past Medical History HEENT History: Reports: Impaired Vision, Other (See Below) Other HEENT History: tonsil abcess present. 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: 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, Musculoskeletal History: Reports: Back Pain, Chronic, Fracture Neurological History: Reports: Concussion, Headaches, Chronic Psychiatric History: Reports: Anxiety, Bipolar, Depression, Psych Hospitalization(s), Suicide Attempt Endocrine/Metabolic History: Reports: Obesity/BMI 30+ - Infectious Disease History Infectious Disease History: Reports: Chicken Pox - Past Surgical History Cardiovascular Surgical History: Reports: Cardiac Ablation GI Surgical History: Reports: Appendectomy, Cholecystectomy, Colonoscopy, EGD, Yue Fundoplication Musculoskeletal Surgical History: Reports: None Social & Family History - Family History Family Medical History: Noncontributory - Tobacco Use Smoking Status *Q: Former Smoker Used Tobacco, but Quit: Yes Month/Year Tobacco Last Used: 6 months ago - Caffeine Use Caffeine Use: Reports: Soda, Tea Caffeine Use Comment: havent any caffeine for 4 days now - Recreational Drug Use Recreational Drug Use: No ED ROS GENERAL - Review of Systems Review Of Systems: See Below Constitutional: Reports: No Symptoms Respiratory: Reports: No Symptoms Cardiovascular: Reports: No Symptoms GI/Abdominal: Reports: No Symptoms : Reports: No Symptoms Musculoskeletal: Reports: Back Pain Skin: Reports: No Symptoms Neurological: Reports: Difficulty Walking (due to pain) ED EXAM,LOWER BACK PAIN/INJURY - Physical Exam Exam: See Below Exam Limited By: No Limitations General Appearance: Alert, WD/WN, No Apparent Distress, Obese Eye Exam: Bilateral Eye: Normal Inspection Ears: Normal External Exam, Normal Canal, Hearing Grossly Normal Nose: Normal Inspection, Normal Mucosa, No Blood Throat/Mouth: Normal Inspection, Normal Lips, Normal Voice, No Airway Compromise Head: Atraumatic, Normocephalic Neck: Normal Inspection Respiratory/Chest: No Respiratory Distress, Lungs Clear, Normal Breath Sounds, No Accessory Muscle Use Cardiovascular: Regular Rate, Rhythm, No Edema Back Exam: Normal Inspection, Decreased Range of Motion, Paraspinal Tenderness, Vertebral Tenderness. No: Full Range of Motion, CVA Tenderness (R), CVA Tenderness (L) Extremities: Normal Inspection, Normal Range of Motion, Non-Tender, No Pedal Edema Neurological: Alert, Normal Mood/Affect, Normal Dorsiflexion, CN II-XII Intact, No Motor/Sensory Deficits, Oriented x 3 Psychiatric: Normal Affect, Normal Mood Skin Exam: Warm, Dry, Intact, Normal Color, No Rash Lymphatic: No Adenopathy Course - Vital Signs Last Recorded V/S: Last Vital Signs Temp 36.1 C 06/27/18 21:03 Pulse 85 06/27/18 21:03 Resp 16 06/27/18 21:03 BP 122/60 06/27/18 21:03 Pulse Ox 99 06/27/18 21:03 - Orders/Labs/Meds Orders: Active Orders 24 hr Category Date Time Status HYDROmorphone [Dilaudid] Med 06/27/18 21:27 Once 1 mg IM ONETIME ONE Medication Orders Hydromorphone HCl (Dilaudid) 1 mg IM ONETIME ONE Stop: 06/27/18 21:28 Meds: Medications Generic Name Dose Route Start Last Admin Trade Name Freq PRN Reason Stop Dose Admin Hydromorphone HCl 1 mg 06/27/18 21:27 Dilaudid IM 06/27/18 21:28 ONETIME ONE Departure - Departure Time of Disposition: 21:40 Disposition: Home, Self-Care 01 Condition: Fair Clinical Impression: Acute exacerbation of chronic low back pain - Discharge Information *PRESCRIPTION DRUG MONITORING PROGRAM REVIEWED*: No *COPY OF PRESCRIPTION DRUG MONITORING REPORT IN PATIENT RUIZ: No Instructions: Back Pain, Adult Referrals: Medina Casas PA [Primary Care Provider] - Additional Instructions: No lifting, bending, twisting, or driving. Keep appt for tomorrow with the specialist. Use [place] in addition to your home meds for added relief as needed. - My Orders Last 24 Hours: My Active Orders 06/27/18 21:27 HYDROmorphone [Dilaudid] 1 mg IM ONETIME ONE - Assessment/Plan Last 24 Hours: My Active Orders 06/27/18 21:27 HYDROmorphone [Dilaudid] 1 mg IM ONETIME ONE
[2018-06-27] MEDS ORDERED: HYDROmorphone 1 MG/ML Syringe ONE (21:43)
== END 2018-06-27 21:52 | disposition home or self-care (01) ==
LOC: JP.ED 20:41
DX: M54.5 Low back pain (principal); G89.29 Other chronic pain; J45.909 Unspecified asthma, uncomplicated; F41.9 Anxiety disorder, unspecified; F31.9 Bipolar disorder, unspecified; Z87.891 Personal history of nicotine dependence; Z79.899 Other long term (current) drug therapy
CPT/HCPCS: 96372; 99283; J1170

== ENCOUNTER 2018-07-24 00:57 | Emergency (ER) | payer MEDICAID ==
[2018-07-24 01:20] VITALS: BP 104/66
[2018-07-24] MEDS ORDERED: Lactated Ringers 1,000 ML IV ONE (01:51)
[2018-07-24] MEDS ORDERED: Acetaminophen 500 MG Tab PO ONE (01:52)
[2018-07-24] MEDS ORDERED: Ondansetron 4 MG Tab.DIS PO ONE (01:52)
[2018-07-24] MEDS ORDERED: Dicyclomine 10 MG Cap PO ONE (01:52)
--- NOTE | 2018-07-24 01:58 | EDM.PDOC ---
ED HPI GENERAL MEDICAL PROBLEM - General Chief Complaint: Abdominal Pain Stated Complaint: ABD PAIN/BLOOD IN STOOL? Time Seen by Provider: 07/24/18 01:40 Source of Information: Reports: Patient, Old Records, RN History Limitations: Reports: No Limitations - History of Present Illness INITIAL COMMENTS - FREE TEXT/NARRATIVE: 37 yo female presents with progressive abdominal pain over the last less than 2 days. No fever. Has had loose stools that now look bloody. No vomiting. Had mild nausea at one point. Has no hx of inflammatory bowel dz. Pain is mostly in the low abdomen. Onset: Gradual Onset Date: 07/21/18 Duration: Day(s): (<2), Waxing/Waning Location: Reports: Abdomen Quality: Reports: Pressure Severity: Moderate Improves with: Reports: None Worsens with: Reports: Other (? time) Context: Reports: Other (unknown) Associated Symptoms: Denies: Cough, Fever/Chills, Nausea/Vomiting, Shortness of Breath, Syncope Treatments ATTENDING RADIOLOGIST: Reports: Other (see below) (none) Pelvic Pain Score (Numeric/FACES): 10 - Related Data Allergies Allergy/AdvReac Type Severity Reaction Status Date / Time ondansetron AdvReac Headache Verified 07/24/18 01:20 [From Zofran (as hydrochloride)] Home Meds: Home Meds Metoprolol Succinate 25 mg PO DAILY 02/24/17 [History] QUEtiapine [SEROquel] 600 mg PO BEDTIME 02/24/17 [History] lamoTRIgine [Lamictal XR] 150 mg PO DAILY 02/24/17 [History] ALPRAZolam [Xanax] 1 mg PO BID PRN 09/28/17 [History] Varenicline Tartrate [Chantix] 1 cap PO BID 01/28/18 [History] Benazepril [Lotensin] 5 mg PO DAILY 03/03/18 [History] Cholecalciferol (Vitamin D3) [Vitamin D] 50,000 units PO DAILY 03/03/18 [History ] Fluticasone/Salmeterol [Advair 250-50] 1 puff INH BID PRN 03/03/18 [History] Pantoprazole 20 mg PO BID 03/03/18 [History] Past Medical History HEENT History: Reports: Impaired Vision, Other (See Below) Other HEENT History: tonsil abcess present. 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: 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, Musculoskeletal History: Reports: Back Pain, Chronic, Fracture Neurological History: Reports: Concussion, Headaches, Chronic Psychiatric History: Reports: Anxiety, Bipolar, Depression, Psych Hospitalization(s), Suicide Attempt Endocrine/Metabolic History: Reports: Obesity/BMI 30+ - Infectious Disease History Infectious Disease History: Reports: Chicken Pox - Past Surgical History Cardiovascular Surgical History: Reports: Cardiac Ablation GI Surgical History: Reports: Appendectomy, Cholecystectomy, Colonoscopy, EGD, Yue Fundoplication Female Surgical History: Reports: Hysterectomy, Salpingo-Oophorectomy Musculoskeletal Surgical History: Reports: None Social & Family History - Family History Family Medical History: Noncontributory - Tobacco Use Smoking Status *Q: Former Smoker Used Tobacco, but Quit: Yes Month/Year Tobacco Last Used: apri l2018 - Caffeine Use Caffeine Use: Reports: Soda Caffeine Use Comment: havent any caffeine for 4 days now - Recreational Drug Use Recreational Drug Use: No ED ROS GENERAL - Review of Systems Review Of Systems: See Below Constitutional: Reports: No Symptoms HEENT: Reports: No Symptoms Respiratory: Reports: No Symptoms Cardiovascular: Reports: No Symptoms GI/Abdominal: Reports: Abdominal Pain (low), Bloody Stool, Diarrhea, Nausea. Denies: Black Stool, Constipation, Vomiting : Reports: No Symptoms Musculoskeletal: Reports: No Symptoms Skin: Reports: No Symptoms Neurological: Reports: No Symptoms Psychiatric: Reports: No Symptoms ED EXAM, GI/ABD - Physical Exam Exam: See Below Exam Limited By: No Limitations General Appearance: Alert, WD/WN, No Apparent Distress, Obese Eyes: Bilateral: Normal Appearance Ears: Normal External Exam, Normal Canal, Hearing Grossly Normal, Normal TMs Nose: Normal Inspection, Normal Mucosa, No Blood Throat/Mouth: Normal Inspection, Normal Lips, Normal Oropharynx, Normal Voice, No Airway Compromise Head: Atraumatic, Normocephalic Neck: Normal Inspection, Supple, Non-Tender Respiratory/Chest: No Respiratory Distress, Lungs Clear, No Accessory Muscle Use Cardiovascular: Regular Rate, Rhythm, No Edema GI/Abdominal Exam: Normal Bowel Sounds, Soft, No Distention, Tender (mild diffuse lower abdominal tenderness.). No: Distended Back Exam: Normal Inspection. No: CVA Tenderness (R), CVA Tenderness (L) Extremities: Normal Inspection, Normal Range of Motion, Non-Tender Neurological: Alert, Oriented, CN II-XII Intact, Normal Cognition, No Motor/ Sensory Deficits Psychiatric: Normal Affect, Normal Mood Skin Exam: Warm, Dry, Intact, Normal Color, No Rash Course - Vital Signs Text/Narrative:: IV fluids, acetaminophen and dicyclomine all refused. Wants only IV narcotics, if can't have this wants to go home. Last Recorded V/S: Last Vital Signs Temp 35.7 C 07/24/18 01:14 Pulse 93 07/24/18 01:14 Resp 16 07/24/18 01:14 BP 104/66 07/24/18 01:14 Pulse Ox 99 07/24/18 01:14 - Orders/Labs/Meds Orders: Active Orders 24 hr Category Date Time Status BASIC METABOLIC PANEL,BMP [CHEM] Stat Lab 07/24/18 02:07 Received CRP [C-REACTIVE PROTEIN] [CHEM] Stat Lab 07/24/18 02:07 Received UA W/MICROSCOPIC [URIN] Stat Lab 07/24/18 01:56 Ordered Lactated Ringers [Ringers, Lactated] 1,000 ml Med 07/24/18 01:51 Active IV BOLUS Medication Orders Lactated Ringer's (Ringers, Lactated) 1,000 mls @ 1,000 mls/hr IV BOLUS ONE Stop: 07/24/18 02:50 Labs: Laboratory Tests 07/24/18 Range/Units 02:07 WBC 10.2 (4.5-11.0) K/uL RBC 4.86 (3.30-5.50) M/uL Hgb 14.5 (12.0-15.0) g/dL Hct 41.6 (36.0-48.0) % MCV 86 (80-98) fL MCH 30 (27-31) pg MCHC 35 (32-36) % Plt Count 364 (150-400) K/uL Meds: Medications Generic Name Dose Route Start Last Admin Trade Name Freq PRN Reason Stop Dose Admin Lactated Ringer's 1,000 mls @ 1,000 mls/hr 07/24/18 01:51 Ringers, Lactated IV 07/24/18 02:50 BOLUS ONE Discontinued Medications Generic Name Dose Route Start Last Admin Trade Name [place] PRN Reason Stop Dose Admin Acetaminophen 1,000 mg 07/24/18 01:52 Tylenol Extra Strength PO 07/24/18 01:53 ONETIME ONE Dicyclomine HCl 20 mg 07/24/18 01:52 07/24/18 02:08 Bentyl PO 07/24/18 01:53 20 mg ONETIME ONE Administration Ondansetron HCl 4 mg 07/24/18 01:52 Zofran Odt PO 07/24/18 01:53 ONETIME ONE Departure - Departure Time of Disposition: 02:17 Disposition: Home, Self-Care 01 Condition: Fair Clinical Impression: Blood in stool Diarrhea Qualifiers: Diarrhea type: unspecified type Qualified Code(s): R19.7 - Diarrhea, unspecified - Discharge Information *PRESCRIPTION DRUG MONITORING PROGRAM REVIEWED*: No *COPY OF PRESCRIPTION DRUG MONITORING REPORT IN PATIENT RUIZ: No Referrals: Medina Casas PA [Primary Care Provider] - Forms: ED Department Discharge Additional Instructions: Drink ample fluids. Return a stool specimen for further testing. See your family doctor for recheck keagan. - My Orders Last 24 Hours: My Active Orders 07/24/18 01:51 Lactated Ringers [Ringers, Lactated] 1,000 ml IV BOLUS 07/24/18 01:56 UA W/MICROSCOPIC [URIN] Stat 07/24/18 02:07 BASIC METABOLIC PANEL,BMP [CHEM] Stat CRP [C-REACTIVE PROTEIN] [CHEM] Stat - Assessment/Plan Last 24 Hours: My Active Orders 07/24/18 01:51 Lactated Ringers [Ringers, Lactated] 1,000 ml IV BOLUS 07/24/18 01:56 UA W/MICROSCOPIC [URIN] Stat 07/24/18 02:07 BASIC METABOLIC PANEL,BMP [CHEM] Stat CRP [C-REACTIVE PROTEIN] [CHEM] Stat
[2018-07-24] MEDS ORDERED: Ketorolac 60 MG/2 ML SDV IM ONE (02:33)
[2018-07-24] MEDS ORDERED: Promethazine 25 MG/ML SDV IM ONE (02:38)
== END 2018-07-24 03:05 | disposition home or self-care (01) ==
LOC: JP.ED 00:57
DX: K64.9 Unspecified hemorrhoids (principal); K92.1 Melena; J45.909 Unspecified asthma, uncomplicated; F31.9 Bipolar disorder, unspecified; Z87.891 Personal history of nicotine dependence; Z90.710 Acquired absence of both cervix and uterus; Z79.899 Other long term (current) drug therapy; Z88.8 Allergy status to other drugs, medicaments and biological substances
CPT/HCPCS: 36415; 80048; 81001; 85027; 86140; 96372; 99284; A9270; J1885; J2550

== ENCOUNTER 2018-12-11 21:47 | Emergency (ER) | payer MEDICAID ==
[2018-12-11 22:08] VITALS: BP 149/87
[2018-12-11] MEDS ORDERED: predniSONE 20 MG Tab PO ONE (22:17)
[2018-12-11] MEDS ORDERED: diphenhydrAMINE 25 MG Cap PO ONE (22:17)
--- NOTE | 2018-12-11 22:20 | EDM.PDOC ---
ED HPI GENERAL MEDICAL PROBLEM - General Chief Complaint: Skin Complaint Stated Complaint: RASH Time Seen by Provider: 12/11/18 22:05 Source of Information: Reports: Patient, Old Records, RN History Limitations: Reports: No Limitations - History of Present Illness INITIAL COMMENTS - FREE TEXT/NARRATIVE: 38 yo female here with a pruritic rash to both elbow and the L calf. No self tx. No other sx's. Is not sure what brought this on. No SOB, wheezing, or throat issues. 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) (none) - Related Data Allergies Allergy/AdvReac Type Severity Reaction Status Date / Time ondansetron AdvReac Headache Verified 12/11/18 22:14 [From Zofran (as hydrochloride)] Home Meds: Home Meds Metoprolol Succinate 25 mg PO DAILY 02/24/17 [History] QUEtiapine [SEROquel] 600 mg PO BEDTIME 02/24/17 [History] lamoTRIgine [Lamictal XR] 150 mg PO DAILY 02/24/17 [History] ALPRAZolam [Xanax] 1 mg PO BID PRN 09/28/17 [History] Varenicline Tartrate [Chantix] 1 cap PO BID 01/28/18 [History] Benazepril [Lotensin] 5 mg PO DAILY 03/03/18 [History] Cholecalciferol (Vitamin D3) [Vitamin D] 50,000 units PO DAILY 03/03/18 [History ] Fluticasone/Salmeterol [Advair 250-50] 1 puff INH BID PRN 03/03/18 [History] Pantoprazole 20 mg PO BID 03/03/18 [History] Metaxalone 800 mg PO DAILY 09/03/18 [History] Prochlorperazine Maleate 75 mg PO DAILY 09/03/18 [History] Past Medical History HEENT History: Reports: Impaired Vision, Other (See Below) Other HEENT History: tonsil abcess present. 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: Reports: 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, Musculoskeletal History: Reports: Back Pain, Chronic, Fracture Neurological History: Reports: Concussion, Headaches, Chronic Psychiatric History: Reports: Anxiety, Bipolar, Depression, Psych Hospitalization(s), Suicide Attempt Endocrine/Metabolic History: Reports: Obesity/BMI 30+ - Infectious Disease History Infectious Disease History: Reports: Chicken Pox - Past Surgical History Cardiovascular Surgical History: Reports: Cardiac Ablation GI Surgical History: Reports: Appendectomy, Cholecystectomy, Colonoscopy, EGD, Yue Fundoplication Female Surgical History: Reports: Hysterectomy, Salpingo-Oophorectomy Musculoskeletal Surgical History: Reports: None Social & Family History - Family History Family Medical History: Noncontributory - Caffeine Use Caffeine Use: Reports: Soda Caffeine Use Comment: havent any caffeine for 4 days now ED ROS GENERAL - Review of Systems Review Of Systems: See Below Constitutional: Reports: No Symptoms HEENT: Reports: No Symptoms Respiratory: Reports: No Symptoms Cardiovascular: Reports: No Symptoms Endocrine: Reports: No Symptoms GI/Abdominal: Reports: No Symptoms : Reports: No Symptoms Musculoskeletal: Reports: No Symptoms Skin: Reports: Pruritis, Rash Neurological: Reports: No Symptoms ED EXAM, SKIN/RASH Exam: See Below Exam Limited By: No Limitations General Appearance: Alert, WD/WN, No Apparent Distress, Obese Eye Exam: Bilateral Eye: Normal Inspection Ears: Normal External Exam, Normal Canal, Hearing Grossly Normal, Normal TMs Nose: Normal Inspection, No Blood Throat/Mouth: Normal Inspection, Normal Lips, Normal Oropharynx, Normal Voice, No Airway Compromise Head: Atraumatic, Normocephalic Neck: Normal Inspection, Non-Tender Respiratory/Chest: No Respiratory Distress, Lungs Clear, Normal Breath Sounds, No Accessory Muscle Use Cardiovascular: Regular Rate, Rhythm, No Edema Back Exam: Normal Inspection. No: CVA Tenderness (R), CVA Tenderness (L) Extremities: Normal Inspection, Normal Range of Motion, Non-Tender, No Pedal Edema Neurological: Alert, Oriented, CN II-XII Intact, Normal Cognition, No Motor/ Sensory Deficits Psychiatric: Normal Affect, Normal Mood Skin: Warm, Dry, Intact, Erythema, Other (clustered firm, small papules on the elbows and the L calf). No: Normal Color, No Rash, Increased Warmth Location, Skin: Upper Extremity, Right, Upper Extremity, Left, Lower Extremity, Left Characteristics: Patchy, Erythematous Associated features: No: Warmth, Tenderness, Swelling, Induration, Scaling, Lymphangitis Course - Vital Signs Last Recorded V/S: Last Vital Signs Temp 35.8 C 12/11/18 22:07 Pulse 98 12/11/18 22:07 Resp 16 12/11/18 22:07 BP 149/87 H 12/11/18 22:07 Pulse Ox 97 12/11/18 22:07 Departure - Departure Time of Disposition: 22:30 Disposition: Home, Self-Care 01 Condition: Good Clinical Impression: Contact dermatitis Qualifiers: Contact dermatitis type: allergic Contact dermatitis trigger: unspecified trigger Qualified Code(s): L23.9 - Allergic contact dermatitis, unspecified cause - Discharge Information *PRESCRIPTION DRUG MONITORING PROGRAM REVIEWED*: No *COPY OF PRESCRIPTION DRUG MONITORING REPORT IN PATIENT RUIZ: No Instructions: Contact Dermatitis, [id number] Referrals: Medina Casas PA [Primary Care Provider] - Additional Instructions: Use Dove-unscented with bathing, this is a hypoallergenic soap. Use diphenhydramine 50 mg every 4-6 hrs as needed for itching. Starting tomorrow apply triamcinolone cream to areas three times a day. Recheck with your doctor later this week.
== END 2018-12-11 22:37 | disposition home or self-care (01) ==
LOC: JP.ED 21:47
DX: L23.9 Allergic contact dermatitis, unspecified cause (principal)
CPT/HCPCS: 99283; A9270

== ENCOUNTER 2019-02-01 09:23 | Emergency (ER) | payer MEDICAID ==
[2019-02-01 09:33] VITALS: BP 104/72
[2019-02-01] MEDS ORDERED: Ketorolac 60 MG/2 ML SDV IM ONE (10:09)
[2019-02-01] MEDS ORDERED: Acetaminophen/oxyCODONE 325-5 MG Tab PO ONE (10:10)
[2019-02-01] MEDS ORDERED: Ondansetron 4 MG Tab.DIS PO ONE (10:20)
--- NOTE | 2019-02-01 10:25 | EDM.PDOC ---
ED HPI GENERAL MEDICAL PROBLEM - General Chief Complaint: Lower Extremity Injury/Pain Stated Complaint: TOE INFECTION Time Seen by Provider: 02/01/19 10:21 Source of Information: Reports: Patient History Limitations: Reports: No Limitations - History of Present Illness INITIAL COMMENTS - FREE TEXT/NARRATIVE: pt started 1 month ago with a fungal infection in her toe nail. She has trimmed this down and states she has stuck a needle into the toe. She states this is so painful she is not able to sleep. Onset: Gradual Duration: Day(s): Location: Reports: Lower Extremity, Right Associated Symptoms: Reports: No Other Symptoms Left Toe-[place] Pain Score (Numeric/FACES): 10 - Related Data Allergies Allergy/AdvReac Type Severity Reaction Status Date / Time ondansetron AdvReac Headache Verified 02/01/19 09:36 [From Zofran (as hydrochloride)] Home Meds: Home Meds Metoprolol Succinate 25 mg PO DAILY 02/24/17 [History] QUEtiapine [SEROquel] 600 mg PO BEDTIME 02/24/17 [History] lamoTRIgine [Lamictal XR] 150 mg PO DAILY 02/24/17 [History] ALPRAZolam [Xanax] 1 mg PO BID PRN 09/28/17 [History] Varenicline Tartrate [Chantix] 1 cap PO BID 01/28/18 [History] Benazepril [Lotensin] 5 mg PO DAILY 03/03/18 [History] Cholecalciferol (Vitamin D3) [Vitamin D] 50,000 units PO DAILY 03/03/18 [History ] Fluticasone/Salmeterol [Advair 250-50] 1 puff INH BID PRN 03/03/18 [History] Pantoprazole 20 mg PO BID 03/03/18 [History] Metaxalone 800 mg PO DAILY 09/03/18 [History] Prochlorperazine Maleate 75 mg PO DAILY 09/03/18 [History] Hydrocodone/Acetaminophen [[place] 5-325 Tablet] 1 tab PO Q4H PRN 02/01/19 [ History] Past Medical History HEENT History: Reports: Impaired Vision, Other (See Below) Other HEENT History: tonsil abcess present. 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 enlarged liver and only 1/2 functions - Infectious Disease History Infectious Disease History: Reports: Chicken Pox - Past Surgical History Head Surgeries/Procedures: Reports: None HEENT Surgical History: Reports: Tonsillectomy Cardiovascular Surgical History: Reports: Cardiac Ablation, Other (See Below) Other Cardiovascular Surgeries/Procedures: 2 heart caths Respiratory Surgical History: Reports: None GI Surgical History: Reports: Appendectomy, Cholecystectomy, Colonoscopy, EGD, Yue Fundoplication Female Surgical History: Reports: Hysterectomy, Salpingo-Oophorectomy Endocrine Surgical History: Reports: None Neurological Surgical History: Reports: None Musculoskeletal Surgical History: Reports: None Dermatological Surgical History: Reports: None Social & Family History - Family History Family Medical History: Noncontributory - Tobacco Use Smoking Status *Q: Current Some Day Smoker Years of Tobacco use: 20 Packs/Tins Daily: 0.5 Used Tobacco, but Quit: No Second Hand Smoke Exposure: Yes - Caffeine Use Caffeine Use: Reports: Soda, Tea Caffeine Use Comment: havent any caffeine for 4 days now - Recreational Drug Use Recreational Drug Use: No Review of Systems - Review of Systems Review Of Systems: See Below Constitutional: Reports: No Symptoms Eyes: Reports: No Symptoms Ears: Reports: No Symptoms Nose: Reports: No Symptoms Mouth/Throat: Reports: No Symptoms Respiratory: Reports: No Symptoms Cardiovascular: Reports: No Symptoms GI/Abdominal: Reports: No Symptoms Genitourinary: Reports: No Symptoms Musculoskeletal: Reports: Other (Pain inthe rt great toe. ) Neurological: Reports: No Symptoms Psychiatric: Reports: No Symptoms ED EXAM, GENERAL - Physical Exam Exam: See Below Free Text/Narrative:: pt appears very anxious. She is very uncomfortable at this time. Exam Limited By: No Limitations General Appearance: Alert, Anxious Extremities: Other ( rt great toe is very red and is swollen. She has a obvious dungal infection in the toe nail. She has cut the nail for short. She has stuck a needle into the toe. The toe is red and swollen. ) Neurological: Alert, Oriented, Normal Cognition Psychiatric: Anxious Course - Vital Signs Last Recorded V/S: Last Vital Signs Temp 35.9 C 02/01/19 09:30 Pulse 118 H 02/01/19 09:30 Resp 16 02/01/19 09:30 BP 104/72 02/01/19 09:30 Pulse Ox 100 02/01/19 09:30 - Orders/Labs/Meds Labs: Laboratory Tests 02/01/19 02/01/19 Range/Units 10:27 10:27 WBC 6.0 (4.5-11.0) K/uL RBC 4.08 (3.30-5.50) M/uL Hgb 12.1 D (12.0-15.0) g/dL Hct 37.2 (36.0-48.0) % MCV 91 (80-98) fL MCH 30 (27-31) pg MCHC 33 (32-36) % Plt Count 243 (150-400) K/uL Neut % (Auto) 62 (36-66) % Lymph % (Auto) 20 L (24-44) % [place] % (Auto) 9 H (2-6) % Eos % (Auto) 8 H (2-4) % Baso % (Auto) 1 (0-1) % Uric Acid 3.9 (2.6-6.2) mg/dL Meds: Medications Discontinued Medications Generic Name Dose Route Start Last Admin Trade Name Balwinderq PRN Reason Stop Dose Admin Ketorolac Tromethamine 60 mg 02/01/19 10:09 02/01/19 10:40 Toradol IM 02/01/19 10:10 60 mg ONETIME ONE Administration Ondansetron HCl 4 mg 02/01/19 10:20 02/01/19 10:39 Zofran Odt PO 02/01/19 10:21 Not Given ONETIME ONE Oxycodone/Acetaminophen 1 tab 02/01/19 10:10 02/01/19 10:41 Percocet 325-5 Mg PO 02/01/19 10:11 1 tab ONETIME ONE Administration Promethazine HCl 25 mg 02/01/19 10:42 02/01/19 10:49 Phenergan PO 02/01/19 10:43 25 mg Q8H ONE Administration - Re-Assessments/Exams Free Text/Narrative Re-Assessment/Exam: 02/01/19 10:55 pt had a xray of the great toe which did not show any bone involvement. uric acid is normal wbc is not elevated. Departure - Departure Time of Disposition: 11:15 Disposition: Home, Self-Care 01 Condition: Fair Clinical Impression: Cellulitis of great toe - Discharge Information Referrals: Medina Casas PA [Primary Care Provider] - Forms: ED Department Discharge Care Plan Goals: soak foot tid in warm water, follow this with cool packs. elevate the foot. Use the hydrocodone as usual for the pain, add torodol 10mg qid. augmentin 875 bid for the toe infection, referal to Dr Hawthorne for Tuesday. use yogurt of probioyic while on the antibiotic.
[2019-02-01] MEDS ORDERED: Promethazine 25 MG Tab PO ONE (10:42)
--- NOTE | 2019-02-01 11:22 | CRLCR ---
INDICATION: Great toe injury COMPARISON: none TECHNIQUE: Three view right great toe FINDINGS: The bones are anatomically aligned. There is no evidence of fracture, erosion or intrinsic bone lesion. There is no evidence of a foreign body within the soft tissues. IMPRESSION: No fracture identified. Dictated by Hany Carroll MD @ 02/01/2019 11:20:14 AM Dictated by: Hany Carroll MD @ 02/01/2019 11:20:21 (Electronically Signed)
== END 2019-02-01 11:16 | disposition home or self-care (01) ==
LOC: JP.ED 09:23
DX: L03.032 Cellulitis of left toe (principal); J45.909 Unspecified asthma, uncomplicated; F31.9 Bipolar disorder, unspecified; F41.9 Anxiety disorder, unspecified; Z79.899 Other long term (current) drug therapy; Z88.8 Allergy status to other drugs, medicaments and biological substances
CPT/HCPCS: 36415; 73660; 84550; 85025; 96372; 99283; A9270; J1885

== ENCOUNTER 2019-04-03 05:31 | Inpatient (IN) | payer MEDICAID ==
[2019-04-03] MEDS ORDERED: Dextrose 5%-Lactated Ringers 1,000 ML IV SCH (06:00)
[2019-04-03] MEDS ORDERED: Celecoxib 200 MG Cap PO ONE (06:00)
[2019-04-03] MEDS ORDERED: Acetaminophen 500 MG Tab PO ONE (06:00)
[2019-04-03] MEDS ORDERED: Gabapentin 300 MG Cap PO ONE (06:00)
[2019-04-03] MEDS ORDERED: cefOXitin 2 GM in Sodium Chloride 0.9% 50 ML IV ONE (06:00)
[2019-04-03] MEDS ORDERED: Scopolamine 1.5 MG Transdermal Patch TOP ONE (06:00)
[2019-04-03] MEDS ORDERED: cefOXitin 2 GM Vial ONE (06:42)
[2019-04-03] MEDS ORDERED: Glycopyrrolate 0.2 MG/ML 5 ML MDV ONE (07:09)
[2019-04-03] MEDS ORDERED: Rocuronium 50 MG/5 ML Vial ONE (07:09)
[2019-04-03] MEDS ORDERED: Dexamethasone 4 MG/ML SDV ONE (07:09)
[2019-04-03] MEDS ORDERED: Neostigmine Methylsulfate 1 MG/ML 5 ML Syringe ONE (07:09)
[2019-04-03] MEDS ORDERED: Succinylcholine 200 MG/10 ML MDV ONE (07:09)
[2019-04-03] MEDS ORDERED: Propofol 200 MG/20 ML SDV ONE (07:09)
[2019-04-03] MEDS ORDERED: Ondansetron 4 MG/2 ML SDV ONE (07:09)
[2019-04-03] MEDS ORDERED: Ketamine 50 MG in Sodium Chloride 0.9% 49.5 ML IV SCH (07:45)
[2019-04-03] MEDS ORDERED: Ketamine 500 MG/5 ML MDV IV SCH (07:45)
[2019-04-03] MEDS ORDERED: Lidocaine 2% 100 MG/5 ML Syringe IVPUSH SCH (07:45)
[2019-04-03] MEDS: Lidocaine 0.4%/D5W 2 GM/500 ML BAG IV SCH (08:00)
[2019-04-03] MEDS ORDERED: fentaNYL 100 MCG/2 ML SDV IVPUSH ONE ×2 (09:51→10:15)
[2019-04-03] MEDS ORDERED: hydrOXYzine HCl 100 MG/2 ML SDV IM ONE ×2 (09:51→11:25)
[2019-04-03] MEDS ORDERED: Meperidine PF 100 MG/ML Syringe IM ONE (11:25)
[2019-04-03] MEDS ORDERED: diphenhydrAMINE 50 MG/ML SDV IVPUSH PRN (11:39)
[2019-04-03] MEDS ORDERED: Labetalol 20 MG/4 ML Syringe IVPUSH PRN (11:39)
[2019-04-03] MEDS ORDERED: hydrOXYzine HCl 100 MG/2 ML SDV IM PRN (11:39)
[2019-04-03] MEDS ORDERED: Albuterol/Ipratropium 3.0-0.5 MG/3 ML Neb Soln INH PRN (11:39)
[2019-04-03] MEDS ORDERED: HYDROmorphone 0.5 MG/0.5 ML Syringe IVPUSH PRN (11:46)
[2019-04-03] MEDS: Dextrose 5%-Lactated Ringers 1,000 ML IV SCH (12:38)
[2019-04-03] MEDS: HYDROmorphone 1 MG/ML Syringe IV PRN ×2 (14:00→18:23)
[2019-04-03] MEDS: Metoclopramide 10 MG/2 ML SDV IVPUSH PRN (14:00)
[2019-04-03] MEDS: cefOXitin 2 GM in Sodium Chloride 0.9% 50 ML IV SCH ×2 (14:01→19:37)
[2019-04-03] MEDS: Pantoprazole 40 MG Vial IVPUSH SCH (14:03)
[2019-04-03] MEDS: Acetaminophen Soln 650 MG/20.3 ML UD Cup PO SCH ×2 (14:03→19:37)
[2019-04-03] MEDS: Albuterol/Ipratropium 3.0-0.5 MG/3 ML Neb Soln INH SCH ×2 (14:44→21:54)
[2019-04-03] MEDS: MVI, Adult with Vitamin K 10 ML, Thiamine 200 MG, Chromium/Copper/Mang/Selen/Zn 1 ML in... IV SCH ×4 (16:27)
[2019-04-03] MEDS: Heparin Sodium 5,000 Units/ML Vial SUBCUT SCH (16:30)
[2019-04-03] MEDS: Fluticasone-Salmeterol 113-14 MCG Powder Inhalant INH SCH (21:55)
[2019-04-03] MEDS ORDERED: QUEtiapine 100 MG Tab PO SCH (22:59)
[2019-04-04] MEDS: cefOXitin 2 GM in Sodium Chloride 0.9% 50 ML IV SCH ×2 (01:26→07:23)
[2019-04-04] MEDS: Acetaminophen Soln 650 MG/20.3 ML UD Cup PO SCH ×5 (01:26→20:06)
[2019-04-04] MEDS: HYDROmorphone 1 MG/ML Syringe IV PRN ×6 (01:30→20:30)
[2019-04-04] MEDS: Heparin Sodium 5,000 Units/ML Vial SUBCUT SCH ×2 (04:35→15:58)
[2019-04-04] MEDS: Dextrose 5%-Lactated Ringers 1,000 ML IV SCH ×2 (04:36→04:37)
[2019-04-04] MEDS ORDERED: Iopamidol 612 MG/ML 100 ML Bottle IV SCH ×2 (05:45)
--- NOTE | 2019-04-04 06:05 | CRLCR ---
INDICATION: Evaluate Leeann-en-Y gastric bypass. TECHNIQUE: Three views of the left side of the abdomen performed immediately, at 15 minutes, and 25 minutes after installation or ingestion of contrast. FINDINGS: Surgical drain left upper quadrant. Postsurgical change from gastric bypass surgery. Surgically absent gallbladder. Contrast is seen within the Leeann-en-Y gastric bypass and within proximal to mid small bowel loops. No leak. IMPRESSION: No obstruction or leak status post Leeann-en-Y gastric bypass surgery. Dictated by Memo Sanchez MD @ Apr 04 2019 6:01AM Signed by Dr. Memo Sanchez @ Apr 04 2019 6:03AM
[2019-04-04] MEDS: Celecoxib 200 MG Cap PO SCH (07:23)
[2019-04-04] MEDS: Fluticasone-Salmeterol 113-14 MCG Powder Inhalant INH SCH ×2 (08:07→20:06)
[2019-04-04] MEDS: Albuterol/Ipratropium 3.0-0.5 MG/3 ML Neb Soln INH SCH (08:10)
[2019-04-04] MEDS ORDERED: Ondansetron 4 MG Tab.DIS PO PRN (08:33)
[2019-04-04] MEDS ORDERED: ALPRAZolam 0.5 MG Tab PO PRN (08:34)
[2019-04-04] MEDS ORDERED: Dextrose 5%-Lactated Ringers 1,000 ML IV SCH (08:45)
[2019-04-04] MEDS ORDERED: Dicyclomine 10 MG Cap PO PRN (09:00)
[2019-04-04] MEDS ORDERED: lamoTRIgine 100 MG Tab PO SCH (09:00)
[2019-04-04] MEDS: Lidocaine 0.4%/D5W 2 GM/500 ML BAG IV SCH (09:14)
[2019-04-04] MEDS: SCOPOLAMINE PATCH CHECK TOP SCH (09:15)
[2019-04-04] MEDS: lamoTRIgine 100 MG, lamoTRIgine 50 MG PO SCH ×2 (09:19)
[2019-04-04] MEDS: Venlafaxine 75 MG Tab PO SCH ×2 (09:19→20:07)
[2019-04-04] MEDS: Metoclopramide 10 MG/2 ML SDV IVPUSH PRN (12:50)
[2019-04-04] MEDS: Pantoprazole 40 MG Vial IVPUSH SCH (12:59)
[2019-04-04] MEDS: MVI, Adult with Vitamin K 10 ML, Thiamine 200 MG, Chromium/Copper/Mang/Selen/Zn 1 ML in... IV SCH ×4 (15:58)
--- NOTE | 2019-04-04 17:52 | PN ---
DATE OF SERVICE: 04/04/2019 SUBJECTIVE: Reva is postoperative day #1. Her upper GI was normal. Her pain has been controlled. Vital signs stable. Oral intake was 1860 and urine output 2450. Remainder of review of systems negative for any pertinent positives and negatives. OBJECTIVE: GENERAL: Reva Page is a 38-year-old female. She is alert and oriented. VITAL SIGNS: TPR is 99, 85, 18, blood pressure 122/71. HEENT: Negative. NECK: Supple. HEART: Regular rate and rhythm. LUNGS: Clear. ABDOMEN: Dressings dry and intact. PETER drain is intact draining a light pink drainage and abdominal binder is on. EXTREMITIES: Without peripheral edema. ASSESSMENT: Laparoscopic Leeann-en-Y gastric bypass surgery, liver biopsy, small bowel resection, partial gastrectomy and repair of paraesophageal diaphragmatic hernia, morbid obesity, hepatomegaly, nodular implant, and mid jejunostomy, devascularization of portion of the stomach, and takedown of Yue fundoplication and recurrent diaphragmatic hernia. Date of surgery 04/03/2019. Surgeon: Winston Khan MD. PLAN: 1. Increase IV to 100 mL per hour. 2. Gastric bypass diet without cereal. 3. Dressing off. 4. May shower. 5. Discontinue nebulizer treatments. 6. Zofran 4 mg ODT every 4 hours for p.r.n. nausea. 7. Home medications restarted, metaxalone, Skelaxin 800 mg p.o. t.i.d. p.r.n. dicyclomine hydrochloride, Bentyl 10 mg p.o. q.i.d. before meals and bedtime p.r.n. Xanax 1 mg p.o. b.i.d. p.r.n. Good pulmonary toilet. We will evaluate p.r.n. or in a.m. Communication order written that if hospital does not have Seroquel 300 or 600 mg, the patient is to use her own. Kellie Bennett PA-C /[id number]
[2019-04-04] MEDS ORDERED: QUEtiapine 100 MG Tab PO SCH (21:00)
[2019-04-04] MEDS ORDERED: QUETIAPINE 300 MG PO SCH (21:00)
[2019-04-05] MEDS: Acetaminophen Soln 650 MG/20.3 ML UD Cup PO SCH ×2 (01:03→09:18)
[2019-04-05] MEDS: Heparin Sodium 5,000 Units/ML Vial SUBCUT SCH (04:29)
[2019-04-05] MEDS: HYDROmorphone 1 MG/ML Syringe IV PRN ×2 (05:07→09:10)
[2019-04-05] MEDS: Fluticasone-Salmeterol 113-14 MCG Powder Inhalant INH SCH (07:41)
[2019-04-05] MEDS ORDERED: Cyanocobalamin (Vitamin B12) 1,000 MCG/ML SDV IM ONE (09:00)
[2019-04-05] MEDS: Venlafaxine 75 MG Tab PO SCH (09:16)
[2019-04-05] MEDS: lamoTRIgine 100 MG, lamoTRIgine 50 MG PO SCH ×2 (09:16)
[2019-04-05] MEDS: Celecoxib 200 MG Cap PO SCH (09:17)
[2019-04-05] MEDS: SCOPOLAMINE PATCH CHECK TOP SCH (09:18)
--- NOTE | 2019-04-05 09:56 | DISCH ---
ADMISSION DIAGNOSES: 1. Morbid obesity. 2. Anxiety disorder. 3. History of opioid abuse. 4. Benzodiazepine use, agreement excess. 5. Bipolar II disorder. 6. History of paroxysmal supraventricular tachycardia. 7. Chronic back pain. DISCHARGE DIAGNOSES: Laparoscopic Leeann-en-Y gastric bypass surgery, liver biopsy, small bowel resection, partial gastrectomy, and repair of paraesophageal diaphragmatic hernia for morbid obesity, hepatomegaly, nodular implant, and on-mid jejunostomy, devascularization of the portion of the stomach, and takedown of Yue fundoplication and recurrent diaphragmatic hernia. Date of surgery: 04/03/2019. Surgeon: Winston Khan MD. HISTORY: Reva Page is a 38-year-old female with longstanding history of morbid obesity and increasing comorbidities. After preoperative evaluation and discussion of possible risks and possible complications, she wished to proceed with surgical procedure. HOSPITAL COURSE: Reva had her surgery on 04/03/2019. She had no operative complications. On postoperative day #1, her IV was decreased. She was started on a step 2 gastric bypass diet without cereal. Here dressing was off. She was showering. She refused nebulizer treatments. Refused to drink the three med cups every hour. Very reluctant to walk while hospitalized and had a temperature max of 100.9. Reported an increase of abdominal pain and was given vistaril with no relief, so was given Dilaudid. Due to her history of opioid release, there is noted tolerance to narcotics. On postoperative day #2, she was able to be discharged to home. Temperature max was 100.9, but it was felt like she would walk more at home. Her oral intake was 1116, urine output 2725. PETER drain put out 45 mL of a light pink drainage prior to discharge to home. She did receive dietary instruction, but did ask what a step 2 diet was. She has not received dietary education while in the hospital as of yet. She is discharged to home. PHYSICAL EXAMINATION: GENERAL: Reva Page is a 38-year-old female, alert, orientated. VITAL SIGNS: Height is 5 feet 5.5 inches, weight is 269 pounds, BMI is 44. TPR 100.9, 78, 18, blood pressure 103/49. HEENT: Negative. NECK: Supple. HEART: Regular rate and rhythm. LUNGS: Clear. ABDOMEN: Incisions look good. PETER drain is intact. It will be removed prior to discharge. Abdominal binder is on. EXTREMITIES: Without peripheral edema. DISPOSITION: Discharged to home. CONDITION: Stable and improving. FOLLOWUP: Followup appointment with Kellie Benntet PA-C, at [facility] on 04/13/2019 at 10 a.m. NEW PRESCRIPTIONS: 1. Dilaudid 2 mg oral q.6 hours p.r.n. pain, #28. 2. Tylenol 650 mg oral q.6 hours scheduled for 2 weeks. 3. Celebrex 200 mg oral daily, 14 days. 4. Vistaril 25 mg 1 to 2 q.6 hours lesser pain, #30. 5. Zofran 4 mg q.4 hours p.r.n. nausea, #30. She is to resume home medications: 1. Xanax 1 mg oral twice daily p.r.n. anxiety. 2. Lotensin 5 mg oral daily. 3. Bentyl 10 mg oral before meals and at bedtime p.r.n. 4. Advair 250/50 one puff inhalation twice daily. 5. Metaxalone/Skelaxin 800 mg 3 times a day. 6. Omeprazole 20 mg oral twice daily. 7. Pantoprazole 20 mg twice daily. 8. Phenergan 25 mg every 4 hours p.r.n. nausea. 9. Seroquel 600 mg oral at bedtime. 10.Effexor 37.5 mg oral twice daily. 11.Lamotrigine 150 mg oral daily. 12.Stop taking the vitamin E. She has not started any of her bariatric followup vitamins and she was instructed not to start until after her first postoperative appointment. DIET: Step 2 gastric bypass diet with no cereal for 2 weeks until 04/18/2019. Drink 8 to 10 glasses of water a day. ACTIVITY: Other activity: No lifting greater than 10 pounds for 2 weeks. Walk at least 6 times daily inside your home. Driving: Do not drive for 1 week or while on pain medication. Shower/bathing: May shower. DISCHARGE INSTRUCTIONS: Notify provider if any fever, increased pain, nausea, or vomiting. Keep the site clean and dry. Wear abdominal binder for 2 weeks and then as tolerated. SPECIAL INSTRUCTIONS: Use incentive spirometer 10 times every hour while awake for 1 week.
[2019-04-05 10:13] VITALS: BP 112/60
[2019-04-05] MEDS ORDERED: Pantoprazole 40 MG Delayed-Release Granules 1 Packet PO SCH (16:30)
--- NOTE | 2019-04-06 12:52 | OR ---
DATE OF PROCEDURE: 04/03/2019 PREOPERATIVE DIAGNOSIS: Morbid obesity. POSTOPERATIVE DIAGNOSES: 1. Morbid obesity. 2. Marked hepatomegaly. 3. Nodular implant involving jejunum. 4. Devascularization of portion of the stomach, status post takedown of Yue fundoplication. 5. Recurrent paraesophageal diaphragmatic hernia. OPERATIVE PROCEDURE: Diagnostic laparoscopy with: 1. Laparoscopic Leeann-en-Y gastric bypass with long limb gastroenterostomy (27785). 2. Dyllan-Cut needle liver biopsy (06862). 3. Small bowel resection (93757). 4. Partial gastrectomy (12428). 5. Repair of paraesophageal diaphragmatic hernia (43249). ANESTHESIA: General. ASSISTANTS: 1. Kellie Bennett PA-C. 2. SCOTTY Mathias1. INDICATION FOR PROCEDURE: This is a 38-year-old status post previous Yue fundoplication who was developing morbid obesity and increasingly significant comorbidities. After preoperative evaluation and discussion, she wished to proceed with a gastric bypass procedure. Potential risks of the procedure including bleeding, infection, leaks from various GI tract closures, problems with bowel obstruction over time as well as possibility of cardiopulmonary, septic, or hemorrhagic complications leading to were all discussed, and the patient wishes to proceed. DETAILS OF PROCEDURE: The patient was taken to the operating room. After general endotracheal anesthesia was induced, she was placed in a lithotomy position and the abdomen prepped and draped. 15 cm inferior and 5 cm left of xiphoid process, a transverse incision was made and the peritoneal cavity entered under direct vision with an Optiview trocar. Peritoneal cavity was inflated to 15 mmHg pressure with CO2 and the laparoscope reinserted. No underlying trocar insertion site injuries were seen. Bilateral subcostal transversus abdominis plane blocks were then placed after which 5 additional trocars across the upper mid abdomen were then placed. The patient was noted to have marked hepatomegaly with liver volume roughly 2 to 3 times normal and the liver grossly fatty infiltrated. Dyllan-Cut needle biopsy was obtained from the left lobe of the liver. Minimal bleeding from the biopsy site was controlled with electrocautery. At this point, the omentum was divided in the midline at the level of the transverse colon. This allowed identification of the small bowel at the ligament of Treitz. Small bowel was then traced out 130 cm distal to that point, where it was divided transversely with a JOSÉ MIGUEL stapler. At that point of transection, just distal to that, the patient was noted to have a nodular implant on the small bowel. This segment of the small bowel was resected with a JOSÉ MIGUEL stapler and the underlying mesentery divided with Harmonic scalpel and that specimen delivered from the field. The small bowel was then traced out an additional 200 cm distal to the original division site where the [id number] enteroenterostomy was accomplished with an internal firing of the Endo-JOSÉ MIGUEL 60 mm stapler. Common opening was then closed transversely with the same stapler and the angles anastomosed and mesenteric defect approximated with some 3-0 Vicryl stitch along with fibrin sealant. The Leeann limb was then divided from the mesentery for a few centimeters, which allowed an antecolic position of the Leeann limb up to the level of the diaphragm without significant tension. The liver was then retracted anteriorly. There were some adhesions between the previous fundoplication and the liver, which were taken down with Harmonic scalpel. The fundoplication was then initially taken down to some extent. The portion of the stomach after takedown of the fundoplication was noted to be ischemic, and this was resected with a JOSÉ MIGUEL stapler. The area of the very proximal most stomach was then able to be dissected posteriorly, and once that line of dissection from the edge of the uppermost gastric cardia up to the angle of His was dissected out. The stomach was divided with firings of the JOSÉ MIGUEL black loads. Upon completion of the pouch, both staple lines were noted to be intact, but as the stomach was away at the staple line, the patient was noted to have a paraesophageal hernia with prolapse of a portion of the stomach in a plane posterior to the esophagus. As this was reduced, the patient had a recurrent crural defect posteriorly, which was associated with the paraesophageal hernia, and was closed with 0 Vicryl sutures. Pledgets were not used in this case in the event that the subsequent gastrojejunostomy would potentially incorporate holes leading to an unsatisfactory anastomosis. At this point, the anvil of a 25 mm EEA stapler was attached to [place] sump type tube. The latter was brought down through the mouth and taken out through a small opening in the gastric pouch, allowing the anvil likewise to be pulled down to within the gastric pouch. The divided end of the limb was then opened and the main body of the EEA stapler was passed several centimeters into the lumen of small bowel, brought up the anvil, and united with it, thus creating the gastrojejunostomy. Upon removal of the stapler, double donuts of mucosa were noted within it. The small bowel was closed off with a vascular staple line. Gastrojejunostomy was then reinforced with 3-0 Vicryl seromuscular stitch along with fibrin sealant. A leak test was accomplished with injection of 120 mL of air in the gastric pouch while submerged with a cefoxitin-containing saline solution. No leaks were identified. A single Oscar-Brock drain was then placed adjacent to the gastrojejunostomy, and from there, up into the area of the splenic fossa. Trocars were then sequentially removed and the peritoneal cavity was deflated. The incisions were closed with some 4-0 Vicryl skin stitch. Steri-Strips were also used to fix the drain, and the patient was taken to the recovery room in satisfactory condition. Physician bankruptcy assistant, Kellie Bennett, played an essential role in assisting in this case, helping to position the patient, retract structures as needed, as well as suturing and cutting sutures when indicated. Her presence improved patient safety and decreased operative time. Winston Khan MD /[id number]
== END 2019-04-05 12:15 | disposition home or self-care (01) | DRG 620 ==
LOC: JP.SDS 05:31 → JP.2SS 05:31 → JP.SDSSCHI 05:31 → UNDOADMIN 05:31 → EDSTATUS 09:45 → JP.2SS 09:55
PROVIDERS: ADMIT Surgery; ATTEND Surgery
PROC: 0D164ZA Bypass Stomach to Jejunum, Percutaneous Endoscopic Approach (ICD-10-PCS; principal; 2019-04-03)
PROC: 0FB24ZX Excision of Left Lobe Liver, Percutaneous Endoscopic Approach, Diagnostic (ICD-10-PCS; 2019-04-03)
PROC: 0DB84ZZ Excision of Small Intestine, Percutaneous Endoscopic Approach (ICD-10-PCS; 2019-04-03)
PROC: 0BQT4ZZ Repair Diaphragm, Percutaneous Endoscopic Approach (ICD-10-PCS; 2019-04-03)
PROC: 0DQ44ZZ Repair Esophagogastric Junction, Percutaneous Endoscopic Approach (ICD-10-PCS; 2019-04-03)
PROC: 0DB64ZZ Excision of Stomach, Percutaneous Endoscopic Approach (ICD-10-PCS; 2019-04-03)
DX: E66.01 Morbid (severe) obesity due to excess calories (principal); F31.81 Bipolar II disorder; Z68.42 Body mass index [BMI] 45.0-49.9, adult; R16.0 Hepatomegaly, not elsewhere classified; K44.9 Diaphragmatic hernia without obstruction or gangrene; K76.0 Fatty (change of) liver, not elsewhere classified; K31.89 Other diseases of stomach and duodenum; I10 Essential (primary) hypertension; Z86.79 Personal history of other diseases of the circulatory system; Z87.42 Personal history of other diseases of the female genital tract; Z90.710 Acquired absence of both cervix and uterus; Z86.14 Personal history of Methicillin resistant Staphylococcus aureus infection; Z88.1 Allergy status to other antibiotic agents; Z79.899 Other long term (current) drug therapy; F41.9 Anxiety disorder, unspecified; F11.11 Opioid abuse, in remission; F19.90 Other psychoactive substance use, unspecified, uncomplicated; M54.9 Dorsalgia, unspecified; G89.29 Other chronic pain
CPT/HCPCS: 36415; 74240; 82962; 86850; 86900; 86901; 94640; A9270-GY; C9113; J0171; J0330; J0694; J1100; J1170; J1644; J2001; J2175; J2405; J2704; J2710; J2765; J2795; J3010; J3410; J3411; J3420; J3490; J7042; J7050; J7620-GY; Q9967

== ENCOUNTER 2019-04-08 19:07 | Emergency (ER) | payer MEDICAID ==
[2019-04-08] MEDS ORDERED: fentaNYL 100 MCG/2 ML SDV IVPUSH ONE (19:22)
[2019-04-08] MEDS ORDERED: Prochlorperazine 10 MG/2 ML SDV IVPUSH ONE (19:22)
[2019-04-08] MEDS ORDERED: LORazepam 2 MG/ML SDV IVPUSH ONE (19:23)
[2019-04-08] MEDS ORDERED: Sodium Chloride 0.9% 10 ML Syringe FLUSH PRN (19:23)
[2019-04-08] MEDS ORDERED: Lactated Ringers 1,000 ML IV SCH (19:30)
[2019-04-08] MEDS ORDERED: Sodium Chloride 0.9% 80 ML IV ONE (20:41)
[2019-04-08] MEDS ORDERED: Sodium Chloride 0.9% 10 ML Syringe FLUSH ONE (20:41)
[2019-04-08] MEDS ORDERED: Iopamidol 612 MG/ML 100 ML Bottle IV ONE (20:45)
[2019-04-08 20:50] VITALS: BP 103/54
[2019-04-08] MEDS ORDERED: HYDROmorphone 1 MG/ML Syringe IVPUSH ONE (20:52)
--- NOTE | 2019-04-08 21:17 | CRLCT ---
INDICATION: Abdominal pain and vomiting. 5 days post Leeann-en-Y gastric bypass. CT ABDOMEN AND PELVIS WITH CONTRAST TECHNIQUE: Multidetector CT imaging was performed through the abdomen and pelvis following intravenous contrast administration using 100 mL Isovue 300. Oral contrast also appears to have been given. Coronal and sagittal reconstructions were generated. COMPARISON: 07/31/2018 CT abdomen and pelvis. FINDINGS: Lower chest: Minimal bibasilar lung atelectasis. Liver: Within normal limits. Gallbladder and bile ducts: Status post cholecystectomy, as before. No biliary dilation identified. Pancreas: Unremarkable. Spleen: Normal. Adrenals: No nodules or masses. Kidneys, ureters, and urinary bladder: No renal masses or hydronephrosis. No bladder mass or definite wall thickening. Gastrointestinal tract and abdominal wall: Recent interval postoperative changes of Leeann-en-Y gastric bypass. Expected mild postoperative fat stranding about the proximal anastomosis. No definite abscess or hematoma. No evidence of bowel obstruction. Status post appendectomy, as before. Postoperative changes in the anterior abdominal wall. Vascular structures: Normal for age. Peritoneum: No free air, abscess, or significant free fluid. Lymph nodes: No pathologically enlarged nodes identified. Reproductive organs: Status post hysterectomy, as before. No pelvic masses. Bones: Normal for age. IMPRESSION: 1. Recent-appearing postoperative changes of Leeann-en-Y gastric bypass without evidence of complication or other acute findings. 2. Nonacute additional findings as detailed above. KAIDEN LIN MD [employer] Dictated by Chris Lin MD @ 04/08/2019 9:12:38 PM Dictated by: Chris Lin MD @ 04/08/2019 21:16:04 (Electronically Signed)
--- NOTE | 2019-04-08 22:31 | EDM.PDOC ---
ED HPI GENERAL MEDICAL PROBLEM - General Chief Complaint: Gastrointestinal Problem Stated Complaint: COMPLICATIONS TO BYPASS SURGERY Time Seen by Provider: 04/08/19 19:43 Source of Information: Reports: Patient History Limitations: Reports: No Limitations - History of Present Illness INITIAL COMMENTS - FREE TEXT/NARRATIVE: This patient had a Leeann-en-Y procedure on last Tuesday or 5 days ago. 3 days after that she was seen as an outpatient and given IV fluids. Her diet has been recently advanced to stage II but she says today she felt this pulling popping burning pain in her upper abdomen after her last emesis. The pain is still pretty severe. She says she vomits everything that she tries to drink even the small amounts of liquid. She is taking Phenergan but says it doesn't help much abd Pain Score (Numeric/FACES): 10 - Related Data Allergies Allergy/AdvReac Type Severity Reaction Status Date / Time gabapentin Allergy Abdominal Verified 04/08/19 19:18 Pain ondansetron AdvReac Headache Verified 04/08/19 19:18 [From Zofran (as hydrochloride)] Home Meds: Home Meds QUEtiapine [SEROquel] 600 mg PO BEDTIME 02/24/17 [History] ALPRAZolam [Xanax] 1 mg PO BID PRN 09/28/17 [History] Benazepril [Lotensin] 5 mg PO DAILY 03/03/18 [History] Fluticasone/Salmeterol [Advair 250-50] 1 puff INH BID PRN 03/03/18 [History] Pantoprazole 20 mg PO BID 03/03/18 [History] Metaxalone 800 mg PO TID 09/03/18 [History] Dicyclomine [Bentyl] 10 mg PO QIDACANDBED 04/02/19 [History] Omeprazole 20 mg PO BID 04/02/19 [History] Promethazine [Phenergan] 25 mg PO Q4H PRN 04/02/19 [History] Venlafaxine [Effexor] 37.5 mg PO BID 04/02/19 [History] lamoTRIgine [Lamotrigine] 150 mg PO DAILY 04/03/19 [History] Acetaminophen [Tylenol] 650 mg PO Q6H cup 04/05/19 [Rx] Celecoxib [CeleBREX] 200 mg PO DAILY@0800 cap 04/05/19 [Rx] HYDROmorphone [Dilaudid] 2 mg PO Q6HR PRN #28 tab 04/05/19 [Rx] hydrOXYzine pamoate [Vistaril] 25 - 50 mg PO Q6H PRN #30 cap 04/05/19 [Rx] Past Medical History HEENT History: Reports: Impaired Vision, Other (See Below) Other HEENT History: tonsil abcess present. 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 enlarged liver and only 1/2 functions - Infectious Disease History Infectious Disease History: Reports: Chicken Pox, MRSA - Past Surgical History Head Surgeries/Procedures: Reports: None HEENT Surgical History: Reports: Tonsillectomy Cardiovascular Surgical History: Reports: Cardiac Ablation, Other (See Below) Other Cardiovascular Surgeries/Procedures: 2 heart caths GI Surgical History: Reports: Appendectomy, Bariatric Procedure, Cholecystectomy , Colonoscopy, EGD, Yue Fundoplication, Other (See Below) Other GI Surgeries/Procedures: RNY 04/03/19 Female Surgical History: Reports: Hysterectomy, Salpingo-Oophorectomy Social & Family History - Family History Family Medical History: Noncontributory Cardiac: Reports: Bypass, Stent Musculoskeletal: Reports: Arthritis, Back pain, Chronic Neurological: Reports: Dementia, Parkinson's Endocrine/Metabolic: Reports: Hypothyroidism, IDDM Oncologic: Reports: Liver, Lung, Ovarian - Tobacco Use Smoking Status *Q: Never Smoker - Caffeine Use Caffeine Use: Reports: Tea Caffeine Use Comment: havent any caffeine for 4 days now - Recreational Drug Use Recreational Drug Use: No ED ROS GENERAL - Review of Systems Review Of Systems: ROS reveals no pertinent complaints other than HPI. ED EXAM, GI/ABD - Physical Exam Exam: See Below Exam Limited By: No Limitations General Appearance: Alert, Mild Distress, Obese Eyes: Bilateral: Normal Appearance Throat/Mouth: Normal Oropharynx, Inflammation Head: Sinus Tenderness Respiratory/Chest: Lungs Clear Cardiovascular: Regular Rate, Rhythm GI/Abdominal Exam: Normal Bowel Sounds, Soft, Other (Numerous small surgical scars with sutures intact consistent with laparoscopic surgery no unusual tenderness or erythema) Extremities: Normal Inspection Neurological: Alert, Oriented Psychiatric: Normal Affect Skin Exam: Warm, Dry Course - Vital Signs Last Recorded V/S: Last Vital Signs Temp 36.7 C 04/08/19 20:48 Pulse 97 04/08/19 20:49 Resp 15 04/08/19 20:48 BP 103/54 L 04/08/19 20:49 Pulse Ox 92 L 04/08/19 20:49 - Orders/Labs/Meds Orders: Active Orders 24 hr Category Date Time Status Peripheral IV Care [RC] . DIRECTED Care 04/08/19 19:23 Active Lactated Ringers [Ringers, Lactated] 1,000 ml Med 04/08/19 19:30 Active IV ASDIRECTED Sodium Chloride 0.9% [Saline Flush] Med 04/08/19 19:23 Active 10 ml FLUSH ASDIRECTED PRN Peripheral IV Insertion Adult [OM.PC] Stat Oth 04/08/19 19:23 Ordered Medication Orders Lactated Ringer's (Ringers, Lactated) 1,000 mls @ 1,000 mls/hr IV ASDIRECTED DEMOND Last Admin: 04/08/19 20:46 Dose: 1,000 mls/hr Sodium Chloride (Saline Flush) 10 ml FLUSH ASDIRECTED PRN PRN Reason: Keep Vein Open Last Admin: 04/08/19 19:39 Dose: 10 ml Labs: Laboratory Tests 04/08/19 04/08/19 Range/Units 19:23 19:24 WBC 9.5 (4.5-11.0) K/uL RBC 4.19 (3.30-5.50) M/uL Hgb 12.5 (12.0-15.0) g/dL Hct 37.1 (36.0-48.0) % MCV 89 (80-98) fL MCH 30 (27-31) pg MCHC 34 (32-36) % Plt Count 333 (150-400) K/uL Neut % (Auto) 62 (36-66) % Lymph % (Auto) 24 (24-44) % [place] % (Auto) 7 H (2-6) % Eos % (Auto) 5 H (2-4) % Baso % (Auto) 1 (0-1) % Sodium 139 L (140-148) mmol/L Potassium 3.4 L (3.6-5.2) mmol/L Chloride 100 (100-108) mmol/L Carbon Dioxide 25 (21-32) mmol/L Anion Gap 17.4 H (5.0-14.0) mmol/L BUN 12 (7-18) mg/dL Creatinine 0.9 (0.6-1.0) mg/dL Est Cr Clr Drug Dosing TNP Estimated GFR (MDRD) > 60 (>60) Glucose 94 (74-106) mg/dL Calcium 9.2 (8.5-10.1) mg/dL Total Bilirubin 0.3 (0.2-1.0) mg/dL AST 27 (15-37) U/L ALT 52 (12-78) U/L Alkaline Phosphatase 164 H (46-116) U/L Total Protein 7.4 (6.4-8.2) g/dL Albumin 3.1 L (3.4-5.0) g/dL Globulin 4.3 H (2.3-3.5) g/dL Albumin/Globulin Ratio 0.7 L (1.2-2.2) Lipase 102 (73-393) U/L Meds: Medications Generic Name Dose Route Start Last Admin Trade Name Freq PRN Reason Stop Dose Admin Lactated Ringer's 1,000 mls @ 1,000 mls/hr 04/08/19 19:30 04/08/19 20:46 Ringers, Lactated IV 1,000 mls/hr ASDIRECTED DEMOND Administration Sodium Chloride 10 ml 04/08/19 19:23 04/08/19 19:39 Saline Flush FLUSH 10 ml ASDIRECTED PRN Administration Keep Vein Open Discontinued Medications Generic Name Dose Route Start Last Admin Trade Name Freq PRN Reason Stop Dose Admin Fentanyl 50 mcg 04/08/19 19:22 04/08/19 20:01 Sublimaze IVPUSH 04/08/19 19:23 50 mcg ONETIME ONE Administration Hydromorphone HCl 1 mg 04/08/19 20:52 04/08/19 20:58 Dilaudid IVPUSH 04/08/19 20:53 1 mg ONETIME ONE Administration Sodium Chloride 80 mls @ 3.5 mls/sec 04/08/19 20:41 04/08/19 20:58 Normal Saline IV 04/08/19 20:42 3 mls/sec ONETIME ONE Administration Iopamidol 100 ml 04/08/19 20:45 04/08/19 20:57 Isovue-300 (61%) IV 04/08/19 20:46 100 ml ONETIME ONE Administration Lorazepam 1 mg 04/08/19 19:23 04/08/19 19:49 Ativan IVPUSH 04/08/19 19:24 1 mg ONETIME ONE Administration Prochlorperazine Edisylate 5 - 10 mg 04/08/19 19:22 04/08/19 19:57 Compazine IVPUSH 04/08/19 19:23 5 mg ONETIME ONE Administration Sodium Chloride 10 ml 04/08/19 20:41 04/08/19 20:57 Saline Flush FLUSH 04/08/19 20:42 10 ml ONETIME ONE Administration - Radiology Interpretation Free Text/Narrative:: CT scan was reviewed and shows recent Leeann-en-Y but nothing that looks acute. - Re-Assessments/Exams Free Text/Narrative Re-Assessment/Exam: 04/08/19 22:28 This patient was medicated with Compazine 5 mg Ativan 0.5 mg and fentanyl 50 g. She was given a liter of normal saline and this helped quite a bit. Afterwards she was able to drink well water several times and did not vomit afterwards. Her pain is pretty much cleared up. She feels like if she has Compazine at home that will take care of the problem Departure - Departure Time of Disposition: 22:29 Disposition: Home, Self-Care 01 Condition: Fair Clinical Impression: Complications of gastric bypass surgery - Discharge Information Referrals: Medina Casas PA [Primary Care Provider] - Additional Instructions: Instead of Phenergan try using Compazine 10 mg every 6-8 hours. This medication just like Phenergan will cause sedation and can impair driving. It can also cause muscle spasms and Benadryl will help prevent that. People who take this for a long time can develop abnormal movement disorders so if you notice abnormal movements of your lips or hands then you should stop taking Compazine and talk with your doctor.
== END 2019-04-08 22:47 | disposition home or self-care (01) ==
LOC: JP.ED 19:07
DX: K95.89 Other complications of other bariatric procedure (principal); J45.909 Unspecified asthma, uncomplicated; K21.9 Gastro-esophageal reflux disease without esophagitis; F31.9 Bipolar disorder, unspecified; F41.9 Anxiety disorder, unspecified; Z95.5 Presence of coronary angioplasty implant and graft; Z88.8 Allergy status to other drugs, medicaments and biological substances; Z79.899 Other long term (current) drug therapy
CPT/HCPCS: 36415; 74177; 80053; 83690; 85025; 96361; 96374; 96375; 99284; J0780; J1170; J2060; J3010; J7030; J7120; Q9967

== ENCOUNTER 2019-04-26 06:28 | Day surgery (SDC) | payer MEDICAID ==
[2019-04-26] MEDS ORDERED: Lactated Ringers 1,000 ML IV ONE (07:30)
[2019-04-26] MEDS ORDERED: MVI, Adult with Vitamin K 10 ML, Chromium/Copper/Mang/Selen/Zn 1 ML, Thiamine 200 MG in... IV ONE ×4 (07:30)
[2019-04-26] MEDS ORDERED: Glycopyrrolate 0.2 MG/ML 2 ML SDV IVPUSH ONE (08:00)
[2019-04-26] MEDS ORDERED: Cyanocobalamin (Vitamin B12) 1,000 MCG/ML SDV IM ONE (08:00)
[2019-04-26] MEDS ORDERED: Propofol 200 MG/20 ML SDV ONE (08:05)
[2019-04-26] MEDS ORDERED: Midazolam 1 MG/ML 2 ML SDV ONE (08:05)
[2019-04-26] MEDS ORDERED: fentaNYL 100 MCG/2 ML SDV ONE (08:05)
[2019-04-26] MEDS ORDERED: Dexamethasone 4 MG/ML SDV ONE (08:37)
[2019-04-26] MEDS ORDERED: Calcium Carbonate 500 MG Tab.Chew PO PRN (09:27)
[2019-04-26 10:16] VITALS: BP 110/68; PULSE 88
--- NOTE | 2019-04-30 13:44 | OR ---
DATE OF PROCEDURE: 04/26/2019 PREOPERATIVE DIAGNOSIS: Probable stricture at gastrojejunostomy. POSTOPERATIVE DIAGNOSIS: Mild stricture and edema at gastrojejunostomy. OPERATIVE PROCEDURE: Upper gastrointestinal endoscopy with dilation of gastrojejunostomy (95906). ANESTHESIA: IV sedation. INDICATIONS FOR PROCEDURE: This is a 38-year-old, recently status post Leeann-en-Y gastric bypass, presenting with some symptoms of stricturing at her gastrojejunostomy. Plan is to proceed with an upper GI endoscopy with dilation as indicated. Potential risks including bleeding and perforation were discussed, and the patient wishes to proceed. DETAILS OF PROCEDURE: The patient was taken to the operating room and placed in a left lateral decubitus position. IV sedation was administered, after which the upper GI endoscope was passed orally through the length of the esophagus into the area of the gastrojejunostomy. This was quite edematous and did not quite admit passage of the 1 cm gastroscope. A Bard gastrointestinal catheter was then centered across the anastomosis and inflated to 30-Portuguese size. This was held in position for 1 minute after which balloon catheter was deflated and withdrawn. The scope was easily then passed through the anastomosis and the procedure was then concluded with withdrawal of scope and there were no evident complications. Winston Khan MD /[id number]
== END 2019-04-26 11:35 | disposition home or self-care (01) ==
LOC: JP.SDS 06:28
PROVIDERS: ATTEND Surgery
DX: K91.89 Other postprocedural complications and disorders of digestive system (principal); Z88.8 Allergy status to other drugs, medicaments and biological substances
CPT/HCPCS: 43245; A9270; J1100; J2250; J2704; J3010; J3411; J3420; J3490; J7120

== ENCOUNTER 2019-05-15 18:08 | Emergency (ER) | payer MEDICAID ==
[2019-05-15 18:29] VITALS: BP 102/65; PULSE 102
[2019-05-15] MEDS ORDERED: Sodium Chloride 0.9% 10 ML Syringe FLUSH PRN (19:01)
[2019-05-15] MEDS ORDERED: Metoclopramide 10 MG/2 ML SDV IVPUSH ONE (19:04)
--- NOTE | 2019-05-15 19:06 | EDM.PDOC ---
ED HPI GENERAL MEDICAL PROBLEM - General Chief Complaint: Gastrointestinal Problem Stated Complaint: HEADACHE,VOMITING Time Seen by Provider: 05/15/19 18:48 Source of Information: Reports: Patient, Family, RN Notes Reviewed History Limitations: Reports: No Limitations - History of Present Illness INITIAL COMMENTS - FREE TEXT/NARRATIVE: 38-year-old female presents to emergency department today with dehydration she has a known history of gastric bypass approximately one month ago has had complications with nausea and vomiting usually goes to the surgical caring for IV fluids, she states over the last couple days she's had nausea and vomiting unable to keep any food products down no fevers no shortness of breath chest pain Occipital Headache Pain Score (Numeric/FACES): 10 - Related Data Allergies Allergy/AdvReac Type Severity Reaction Status Date / Time gabapentin Allergy Abdominal Verified 05/03/19 10:26 Pain ondansetron AdvReac Headache Verified 05/03/19 10:26 [From Zofran (as hydrochloride)] Home Meds: Home Meds QUEtiapine [SEROquel] 600 mg PO BEDTIME 02/24/17 [History] ALPRAZolam [Xanax] 1 mg PO BID PRN 09/28/17 [History] Benazepril [Lotensin] 5 mg PO DAILY 03/03/18 [History] Fluticasone/Salmeterol [Advair 250-50] 1 puff INH BID PRN 03/03/18 [History] Metaxalone 800 mg PO TID 09/03/18 [History] Dicyclomine [Bentyl] 10 mg PO QIDACANDBED 04/02/19 [History] Omeprazole 20 mg PO BID 04/02/19 [History] Promethazine [Phenergan] 25 mg PO Q4H PRN 04/02/19 [History] Venlafaxine [Effexor] 37.5 mg PO BID 04/02/19 [History] lamoTRIgine [Lamotrigine] 150 mg PO DAILY 04/03/19 [History] Acetaminophen [Tylenol] 650 mg PO Q6H cup 04/05/19 [Rx] Past Medical History HEENT History: Reports: Impaired Vision, Other (See Below) Other HEENT History: tonsil abcess present. 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 enlarged liver and only 1/2 functions - Infectious Disease History Infectious Disease History: Reports: Chicken Pox - Past Surgical History Head Surgeries/Procedures: Reports: None HEENT Surgical History: Reports: Tonsillectomy Cardiovascular Surgical History: Reports: Cardiac Ablation, Other (See Below) Other Cardiovascular Surgeries/Procedures: 2 heart caths GI Surgical History: Reports: Appendectomy, Bariatric Procedure, Cholecystectomy , Colonoscopy, EGD, Yue Fundoplication, Other (See Below) Female Surgical History: Reports: Hysterectomy, Salpingo-Oophorectomy Dermatological Surgical History: Reports: None Social & Family History - Family History Family Medical History: Noncontributory Cardiac: Reports: Bypass, Stent Musculoskeletal: Reports: Arthritis, Back pain, Chronic Neurological: Reports: Dementia, Parkinson's Endocrine/Metabolic: Reports: Hypothyroidism, IDDM Oncologic: Reports: Liver, Lung, Ovarian - Tobacco Use Smoking Status *Q: Former Smoker Used Tobacco, but Quit: Yes Month/Year Tobacco Last Used: december 2018 - Caffeine Use Caffeine Use: Reports: Tea Caffeine Use Comment: havent any caffeine for 4 days now - Recreational Drug Use Recreational Drug Use: No ED ROS GENERAL - Review of Systems Review Of Systems: See Below Constitutional: Reports: No Symptoms HEENT: Reports: No Symptoms Respiratory: Reports: No Symptoms Cardiovascular: Reports: No Symptoms GI/Abdominal: Reports: Nausea, Vomiting. Denies: Abdominal Pain ED EXAM, GI/ABD - Physical Exam Exam: See Below Exam Limited By: No Limitations General Appearance: Alert, WD/WN, No Apparent Distress Respiratory/Chest: No Respiratory Distress, Lungs Clear, Normal Breath Sounds, No Accessory Muscle Use, Chest Non-Tender Cardiovascular: Regular Rate, Rhythm, No Murmur GI/Abdominal Exam: Soft, Non-Tender Course - Vital Signs Last Recorded V/S: Last Vital Signs Temp 96.8 F 05/15/19 18:28 Pulse 102 H 05/15/19 18:28 Resp 16 05/15/19 18:28 BP 102/65 05/15/19 18:28 Pulse Ox 95 05/15/19 18:28 - Orders/Labs/Meds Orders: Active Orders 24 hr Category Date Time Status Peripheral IV Care [RC] . DIRECTED Care 05/15/19 19:03 Active CULTURE URINE [RM] Urgent Lab 05/15/19 22:15 Ordered Lactated Ringers [Ringers, Lactated] 1,000 ml Med 05/15/19 19:15 Active IV ASDIRECTED Sodium Chloride 0.9% [Saline Flush] Med 05/15/19 19:01 Active 10 ml FLUSH ASDIRECTED PRN Peripheral IV Insertion Adult [OM.PC] Urgent Oth 05/15/19 19:01 Ordered Medication Orders Lactated Ringer's (Ringers, Lactated) 1,000 mls @ 999 mls/hr IV ASDIRECTED DEMOND Last Admin: 05/15/19 20:03 Dose: 999 mls/hr Sodium Chloride (Saline Flush) 10 ml FLUSH ASDIRECTED PRN PRN Reason: Keep Vein Open Last Admin: 05/15/19 20:07 Dose: 10 ml Labs: Laboratory Tests 05/15/19 05/15/19 05/15/19 Range/Units 19:15 19:15 19:15 WBC 7.2 (4.5-11.0) K/uL RBC 4.34 (3.30-5.50) M/uL Hgb 13.1 (12.0-15.0) g/dL Hct 39.3 (36.0-48.0) % MCV 91 (80-98) fL MCH 30 (27-31) pg MCHC 33 (32-36) % Plt Count 248 (150-400) K/uL Neut % (Auto) 53 (36-66) % Lymph % (Auto) 36 (24-44) % [place] % (Auto) 6 (2-6) % Eos % (Auto) 4 (2-4) % Baso % (Auto) 1 (0-1) % Sodium 141 (140-148) mmol/L Potassium 4.5 (3.6-5.2) mmol/L Chloride 105 (100-108) mmol/L Carbon Dioxide 28 (21-32) mmol/L Anion Gap 7.7 (5.0-14.0) mmol/L BUN 11 (7-18) mg/dL Creatinine 0.9 (0.6-1.0) mg/dL Est Cr Clr Drug Dosing 77.01 mL/min Estimated GFR (MDRD) > 60 (>60) Glucose 83 (74-106) mg/dL Lactic Acid 1.2 (0.4-2.0) mmol/L Calcium 9.0 (8.5-10.1) mg/dL Total Bilirubin 0.2 (0.2-1.0) mg/dL AST 26 (15-37) U/L ALT 47 (12-78) U/L Alkaline Phosphatase 119 H (46-116) U/L Total Protein 6.4 (6.4-8.2) g/dL Albumin 3.1 L (3.4-5.0) g/dL Globulin 3.3 (2.3-3.5) g/dL Albumin/Globulin Ratio 0.9 L (1.2-2.2) Urine Color Urine Appearance Urine pH (4.5-8.0) Ur Specific [place] (1.008-1.030) Urine Protein (NEGATIVE) mg/dL Urine Glucose (UA) (NEGATIVE) mg/dL Urine Ketones (NEGATIVE) mg/dL Urine Occult Blood (NEGATIVE) Urine Nitrite (NEGATIVE) Urine Bilirubin (NEGATIVE) Urine Urobilinogen (NORMAL) mg/dL Ur Leukocyte Esterase (NEGATIVE) Urine RBC (0-5) Urine WBC (0-5) Ur Epithelial Cells Amorphous Sediment Urine Bacteria Urine Mucus 05/15/19 Range/Units 20:11 WBC (4.5-11.0) K/uL RBC (3.30-5.50) M/uL Hgb (12.0-15.0) g/dL Hct (36.0-48.0) % MCV (80-98) fL MCH (27-31) pg MCHC (32-36) % Plt Count (150-400) K/uL Neut % (Auto) (36-66) % Lymph % (Auto) (24-44) % [place] % (Auto) (2-6) % Eos % (Auto) (2-4) % Baso % (Auto) (0-1) % Sodium (140-148) mmol/L Potassium (3.6-5.2) mmol/L Chloride (100-108) mmol/L Carbon Dioxide (21-32) mmol/L Anion Gap (5.0-14.0) mmol/L BUN (7-18) mg/dL Creatinine (0.6-1.0) mg/dL Est Cr Clr Drug Dosing mL/min Estimated GFR (MDRD) (>60) Glucose (74-106) mg/dL Lactic Acid (0.4-2.0) mmol/L Calcium (8.5-10.1) mg/dL Total Bilirubin (0.2-1.0) mg/dL AST (15-37) U/L ALT (12-78) U/L Alkaline Phosphatase (46-116) U/L Total Protein (6.4-8.2) g/dL Albumin (3.4-5.0) g/dL Globulin (2.3-3.5) g/dL Albumin/Globulin Ratio (1.2-2.2) Urine Color Yellow Urine Appearance Slightly cloudy Urine pH 5.0 (4.5-8.0) Ur Specific [place] 1.015 (1.008-1.030) Urine Protein Negative (NEGATIVE) mg/dL Urine Glucose (UA) Normal (NEGATIVE) mg/dL Urine Ketones Negative (NEGATIVE) mg/dL Urine Occult Blood Negative (NEGATIVE) Urine Nitrite Negative (NEGATIVE) Urine Bilirubin Negative (NEGATIVE) Urine Urobilinogen Normal (NORMAL) mg/dL Ur Leukocyte Esterase Small (NEGATIVE) Urine RBC Not seen (0-5) Urine WBC 10-20 H (0-5) Ur Epithelial Cells Many Amorphous Sediment Not seen Urine Bacteria Many Urine Mucus Not seen Meds: Medications Generic Name Dose Route Start Last Admin Trade Name Freq PRN Reason Stop Dose Admin Lactated Ringer's 1,000 mls @ 999 mls/hr 05/15/19 19:15 05/15/19 20:03 Ringers, Lactated IV 999 mls/hr ASDIRECTED DEMOND Administration Sodium Chloride 10 ml 05/15/19 19:01 05/15/19 20:07 Saline Flush FLUSH 10 ml ASDIRECTED PRN Administration Keep Vein Open Discontinued Medications Generic Name Dose Route Start Last Admin Trade Name Freq PRN Reason Stop Dose Admin Multivitamins/Minerals 10 ml/ 1,016.2 mls @ 999 mls/hr 05/15/19 20:28 21:04 Thiamine HCl 200 mg/ Folic IV 05/15/19 21:29 999 mls/hr Acid 1 mg/ Magnesium Sulfate 2 ONETIME ONE Administration gm/ Dextrose/Lactated Ringer' s Ketorolac Tromethamine 30 mg 05/15/19 19:40 05/15/19 20:08 Toradol IVPUSH 05/15/19 19:41 30 mg ONETIME ONE Administration Metoclopramide HCl 10 mg 05/15/19 19:04 05/15/19 20:05 Reglan IVPUSH 05/15/19 19:05 10 mg ONETIME ONE Administration Departure - Departure Time of Disposition: 22:16 Disposition: Home, Self-Care 01 Condition: Poor Clinical Impression: Vomiting Headache Qualifiers: Headache type: unspecified Headache chronicity pattern: acute headache Intractability: not intractable Qualified Code(s): R51 - Headache - Discharge Information Referrals: Medina Casas PA [Primary Care Provider] - Forms: ED Department Discharge Additional Instructions: Continue your regular medications follow-up with Dr. Khan this week, call return to the emergency department worsening of symptoms, - My Orders Last 24 Hours: My Active Orders 05/15/19 19:01 Sodium Chloride 0.9% [Saline Flush] 10 ml FLUSH ASDIRECTED PRN Peripheral IV Insertion Adult [OM.PC] Urgent 05/15/19 19:03 Peripheral IV Care [RC] . DIRECTED 05/15/19 19:15 Lactated Ringers [Ringers, Lactated] 1,000 ml IV ASDIRECTED 05/15/19 22:15 CULTURE URINE [RM] Urgent - Assessment/Plan Last 24 Hours: My Active Orders 05/15/19 19:01 Sodium Chloride 0.9% [Saline Flush] 10 ml FLUSH ASDIRECTED PRN Peripheral IV Insertion Adult [OM.PC] Urgent 05/15/19 19:03 Peripheral IV Care [RC] . DIRECTED 05/15/19 19:15 Lactated Ringers [Ringers, Lactated] 1,000 ml IV ASDIRECTED 05/15/19 22:15 CULTURE URINE [RM] Urgent Plan: Assessment Acuity = acute Site and laterality = headache with nausea and vomiting. Complicated in a Patient with history of gastric bypass Etiology = unknown etiology Manifestations = none Location of injury = Home Lab values = CBC, CMP, urinalysis unremarkable urine cultures pending Plan I did review lab work with her she received Toradol, Reglan and 2 L of fluids, discharged home she will follow-up with Dr. Khan this week This note was dictated using [employer] voice recognition software please call with any questions on syntax or grammar.
[2019-05-15] MEDS ORDERED: Lactated Ringers 1,000 ML IV SCH (19:15)
[2019-05-15] MEDS ORDERED: Ketorolac 30 MG/ML SDV IVPUSH ONE (19:40)
[2019-05-15] MEDS ORDERED: MVI, Adult with Vitamin K 10 ML, Thiamine 200 MG, Folic Acid 1 MG, Magnesium Sulfate 2 ... IV ONE ×5 (20:28)
== END 2019-05-15 22:30 | disposition home or self-care (01) ==
LOC: JP.ED 18:08
DX: R51 Headache (principal); R11.2 Nausea with vomiting, unspecified; J45.909 Unspecified asthma, uncomplicated; K21.9 Gastro-esophageal reflux disease without esophagitis; F31.9 Bipolar disorder, unspecified; F41.9 Anxiety disorder, unspecified; Z98.84 Bariatric surgery status; Z88.8 Allergy status to other drugs, medicaments and biological substances; Z79.899 Other long term (current) drug therapy; Z86.73 Personal history of transient ischemic attack (TIA), and cerebral infarction without residual deficits; Z87.891 Personal history of nicotine dependence
CPT/HCPCS: 36415; 80053; 81001; 83605; 85025; 87086; 96361; 96365; 96375; 99284; J1885; J2765; J3411; J3475; J7042; J7120; J3490

== ENCOUNTER 2019-06-02 16:58 | Emergency (ER) | payer MEDICAID ==
[2019-06-02 17:20] VITALS: BP 121/65; PULSE 106
[2019-06-02] MEDS ORDERED: Sodium Chloride 0.9% 1,000 ML IV ONE (17:30)
[2019-06-02] MEDS ORDERED: Sodium Chloride 0.9% 10 ML Syringe FLUSH PRN (17:30)
--- NOTE | 2019-06-02 17:32 | EDM.PDOC ---
ED HPI GENERAL MEDICAL PROBLEM - General Chief Complaint: Gastrointestinal Problem Stated Complaint: DEHYDRATED Time Seen by Provider: 06/02/19 17:32 Source of Information: Reports: Patient History Limitations: Reports: No Limitations - History of Present Illness INITIAL COMMENTS - FREE TEXT/NARRATIVE: Reva is a 38 year old female, hx of morbid obesity, had a sleeve gastrectomy done two months ago with ongoing issues of nausea/vomiting and dehydration. Patient has Phenergan and Compazine at home, she took Compazine around 1600 with no relief. Will usually go to the infusion center during the week for fluid hydration. patient denies any fever/chills/abdominal pain. Patient had a normal BM yesterday. Denies any urinary symptoms. Onset: Gradual Duration: Day(s): (2) - Related Data Allergies Allergy/AdvReac Type Severity Reaction Status Date / Time gabapentin Allergy Abdominal Verified 05/03/19 10:26 Pain ondansetron AdvReac Headache Verified 05/03/19 10:26 [From Zofran (as hydrochloride)] Home Meds: Home Meds QUEtiapine [SEROquel] 600 mg PO BEDTIME 02/24/17 [History] ALPRAZolam [Xanax] 1 mg PO BID PRN 09/28/17 [History] Benazepril [Lotensin] 5 mg PO DAILY 03/03/18 [History] Fluticasone/Salmeterol [Advair 250-50] 1 puff INH BID PRN 03/03/18 [History] Metaxalone 800 mg PO TID 09/03/18 [History] Dicyclomine [Bentyl] 10 mg PO QIDACANDBED 04/02/19 [History] Omeprazole 20 mg PO BID 04/02/19 [History] Promethazine [Phenergan] 25 mg PO Q4H PRN 04/02/19 [History] Venlafaxine [Effexor] 37.5 mg PO BID 04/02/19 [History] lamoTRIgine [Lamotrigine] 150 mg PO DAILY 04/03/19 [History] Acetaminophen [Tylenol] 650 mg PO Q6H cup 04/05/19 [Rx] Past Medical History HEENT History: Reports: Impaired Vision, Other (See Below) Other HEENT History: tonsil abcess present. 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 enlarged liver and only 1/2 functions - Infectious Disease History Infectious Disease History: Reports: Chicken Pox - Past Surgical History Head Surgeries/Procedures: Reports: None HEENT Surgical History: Reports: Tonsillectomy Cardiovascular Surgical History: Reports: Cardiac Ablation, Other (See Below) Other Cardiovascular Surgeries/Procedures: 2 heart caths Respiratory Surgical History: Reports: None GI Surgical History: Reports: Appendectomy, Bariatric Procedure, Cholecystectomy , Colonoscopy, EGD, Yue Fundoplication, Other (See Below) Female Surgical History: Reports: Hysterectomy, Salpingo-Oophorectomy Neurological Surgical History: Reports: None Musculoskeletal Surgical History: Reports: None Dermatological Surgical History: Reports: None Social & Family History - Family History Family Medical History: Noncontributory Cardiac: Reports: Bypass, Stent Musculoskeletal: Reports: Arthritis, Back pain, Chronic Neurological: Reports: Dementia, Parkinson's Endocrine/Metabolic: Reports: Hypothyroidism, IDDM Oncologic: Reports: Liver, Lung, Ovarian - Tobacco Use Smoking Status *Q: Former Smoker Used Tobacco, but Quit: Yes Month/Year Tobacco Last Used: 2017 Second Hand Smoke Exposure: No - Caffeine Use Caffeine Use: Reports: None Caffeine Use Comment: havent any caffeine for 4 days now - Recreational Drug Use Recreational Drug Use: No ED ROS GENERAL - Review of Systems Review Of Systems: ROS reveals no pertinent complaints other than HPI. ED EXAM, GI/ABD - Physical Exam Exam: See Below Exam Limited By: No Limitations General Appearance: Alert, WD/WN, No Apparent Distress Throat/Mouth: Normal Inspection Head: Atraumatic Neck: Normal Inspection, Supple, Non-Tender Respiratory/Chest: No Respiratory Distress, Lungs Clear Cardiovascular: Normal Peripheral Pulses, Tachycardia GI/Abdominal Exam: Normal Bowel Sounds, Soft, Non-Tender. No: Guarding, Rigid, Rebound, Tender Extremities: Normal Inspection Neurological: Alert, Oriented, CN II-XII Intact Psychiatric: Normal Affect, Normal Mood Skin Exam: Warm, Dry, Intact Lymphatic: No Adenopathy Course - Vital Signs Last Recorded V/S: Last Vital Signs Temp 36.9 C 06/02/19 17:20 Pulse 106 H 06/02/19 17:20 Resp 16 06/02/19 17:20 BP 121/65 06/02/19 17:20 Pulse Ox 96 06/02/19 17:20 Reva is a 38 year old female who presents to the ED today with concerns for dehydration. Please refer to HPI and focused exam. Patient arrives here mildly tachycardic but otherwise hemodynamically stable and afebrile. Patient non-tender on exam. PIV established, patient given a banana bag along with a liter of NS. CBC and BMP obtained. Patient given a dose of IV Phenergan. CBC returns reassuring and unremarkable. BMP returns with mildly elevated glucose. Potassium of 3.3. Patient feeling better after IV fluids, keeping down oral liquids. Discharged home in stable condition. - Orders/Labs/Meds Orders: Active Orders 24 hr Category Date Time Status Peripheral IV Care [RC] . DIRECTED Care 06/02/19 17:30 Active MVI, Adult with Vitamin K [Infuvite Adult] 10 ml Med 06/02/19 17:45 Active Thiamine [Vitamin B-1] 100 mg Folic Acid 1 mg Magnesium Sulfate [Magnesium Sulfate 50%] 1 gm Sodium Chloride 0.9% [Normal Saline] 1,000 ml IV ASDIRECTED Sodium Chloride 0.9% [Normal Saline] 1,000 ml Med 06/02/19 17:30 Active IV .BOLUS Sodium Chloride 0.9% [Saline Flush] Med 06/02/19 17:30 Active 10 ml FLUSH ASDIRECTED PRN Peripheral IV Insertion Adult [OM.PC] Routine Oth 06/02/19 17:30 Ordered Medication Orders Sodium Chloride (Normal Saline) 1,000 mls @ 999 mls/hr IV .BOLUS ONE Stop: 06/02/19 18:30 Last Admin: 06/02/19 17:56 Dose: 999 mls/hr Multivitamins/Minerals 10 ml/Thiamine HCl 100 mg/ Folic Acid 1 mg/ Magnesium Sulfate 1 gm/ Sodium Chloride 1,013.2 mls @ 999 mls/hr IV ASDIRECTED DEMOND Sodium Chloride (Saline Flush) 10 ml FLUSH ASDIRECTED PRN PRN Reason: Keep Vein Open Labs: Laboratory Tests 06/02/19 06/02/19 Range/Units 17:50 17:50 WBC 6.0 (4.5-11.0) K/uL RBC 4.44 (3.30-5.50) M/uL Hgb 13.1 (12.0-15.0) g/dL Hct 40.1 (36.0-48.0) % MCV 90 (80-98) fL MCH 30 (27-31) pg MCHC 33 (32-36) % Plt Count 236 (150-400) K/uL Neut % (Auto) 51 (36-66) % Lymph % (Auto) 37 (24-44) % [place] % (Auto) 6 (2-6) % Eos % (Auto) 7 H (2-4) % Baso % (Auto) 0 (0-1) % Sodium 144 (140-148) mmol/L Potassium 3.3 L (3.6-5.2) mmol/L Chloride 108 (100-108) mmol/L Carbon Dioxide 27 (21-32) mmol/L Anion Gap 12.3 (5.0-14.0) mmol/L BUN 10 (7-18) mg/dL Creatinine 1.0 (0.6-1.0) mg/dL Est Cr Clr Drug Dosing 69.31 mL/min Estimated GFR (MDRD) > 60 (>60) Glucose 134 H (74-106) mg/dL Calcium 8.9 (8.5-10.1) mg/dL Meds: Medications Generic Name Dose Route Start Last Admin Trade Name Freq PRN Reason Stop Dose Admin Sodium Chloride 1,000 mls @ 999 mls/hr 06/02/19 17:30 06/02/19 17:56 Normal Saline IV 06/02/19 18:30 999 mls/hr .BOLUS ONE Administration Multivitamins/Minerals 10 ml/ 1,013.2 mls @ 999 mls/hr 06/02/19 17:45 Thiamine HCl 100 mg/ Folic IV Acid 1 mg/ Magnesium Sulfate 1 ASDIRECTED DEMOND gm/ Sodium Chloride Sodium Chloride 10 ml 06/02/19 17:30 Saline Flush FLUSH ASDIRECTED PRN Keep Vein Open Discontinued Medications Generic Name Dose Route Start Last Admin Trade Name Balwinderq PRN Reason Stop Dose Admin Promethazine HCl 12.5 mg/ 50.5 mls @ 200 mls/hr 06/02/19 17:37 06/02/19 18:01 Sodium Chloride IV 06/02/19 17:51 200 mls/hr ONETIME ONE Administration Departure - Departure Time of Disposition: 19:30 Disposition: Home, Self-Care 01 Condition: Fair Clinical Impression: Dehydration - Discharge Information Instructions: Dehydration, Adult, [id number] Referrals: Medina Casas PA [Primary Care Provider] - Forms: ED Department Discharge - My Orders Last 24 Hours: My Active Orders 06/02/19 17:30 Peripheral IV Care [RC] . DIRECTED Sodium Chloride 0.9% [Normal Saline] 1,000 ml IV .BOLUS Sodium Chloride 0.9% [Saline Flush] 10 ml FLUSH ASDIRECTED PRN Peripheral IV Insertion Adult [OM.PC] Routine 06/02/19 17:45 MVI, Adult with Vitamin K [Infuvite Adult] 10 ml Thiamine [Vitamin B-1] 100 mg Folic Acid 1 mg Magnesium Sulfate [Magnesium Sulfate 50%] 1 gm Sodium Chloride 0.9% [Normal Saline] 1,000 ml IV ASDIRECTED - Assessment/Plan Last 24 Hours: My Active Orders 06/02/19 17:30 Peripheral IV Care [RC] . DIRECTED Sodium Chloride 0.9% [Normal Saline] 1,000 ml IV .BOLUS Sodium Chloride 0.9% [Saline Flush] 10 ml FLUSH ASDIRECTED PRN Peripheral IV Insertion Adult [OM.PC] Routine 06/02/19 17:45 MVI, Adult with Vitamin K [Infuvite Adult] 10 ml Thiamine [Vitamin B-1] 100 mg Folic Acid 1 mg Magnesium Sulfate [Magnesium Sulfate 50%] 1 gm Sodium Chloride 0.9% [Normal Saline] 1,000 ml IV ASDIRECTED
[2019-06-02] MEDS ORDERED: Promethazine 12.5 MG in Sodium Chloride 0.9% 50 ML IV ONE (17:37)
[2019-06-02] MEDS ORDERED: MVI, Adult with Vitamin K 10 ML, Thiamine 100 MG, Folic Acid 1 MG, Magnesium Sulfate 1 ... IV SCH ×5 (17:45)
== END 2019-06-02 20:33 | disposition home or self-care (01) ==
LOC: JP.ED 16:58
DX: E86.0 Dehydration (principal); K21.9 Gastro-esophageal reflux disease without esophagitis; F41.9 Anxiety disorder, unspecified; F32.9 Major depressive disorder, single episode, unspecified; J45.909 Unspecified asthma, uncomplicated; E66.01 Morbid (severe) obesity due to excess calories; Z79.899 Other long term (current) drug therapy; Z98.890 Other specified postprocedural states; Z98.84 Bariatric surgery status; Z90.49 Acquired absence of other specified parts of digestive tract; Z90.710 Acquired absence of both cervix and uterus; Z88.8 Allergy status to other drugs, medicaments and biological substances; Z87.891 Personal history of nicotine dependence
CPT/HCPCS: 36415; 80048; 85025; 96365; 96375; 99284; J2550; J3411; J3475; J7030; J7050; J3490

== ENCOUNTER 2019-06-05 05:29 | Day surgery (SDC) | payer MEDICAID ==
[2019-06-05] MEDS ORDERED: Lactated Ringers 1,000 ML IV ONE (06:24)
[2019-06-05] MEDS ORDERED: Glycopyrrolate 0.2 MG/ML 2 ML SDV IVPUSH ONE ×2 (06:34→08:45)
[2019-06-05] MEDS ORDERED: Propofol 200 MG/20 ML SDV ONE (08:00)
[2019-06-05] MEDS ORDERED: Midazolam 1 MG/ML 2 ML SDV ONE (08:00)
[2019-06-05] MEDS ORDERED: Lactated Ringers 1,000 ML IV SCH (08:00)
[2019-06-05] MEDS ORDERED: fentaNYL 100 MCG/2 ML SDV ONE (08:00)
[2019-06-05] MEDS ORDERED: Cyanocobalamin (Vitamin B12) 1,000 MCG/ML SDV IM ONE (08:00)
[2019-06-05 08:44] VITALS: BP 108/63; PULSE 84
[2019-06-05] MEDS ORDERED: MVI, Adult with Vitamin K 10 ML, Thiamine 200 MG, Chromium/Copper/Mang/Selen/Zn 1 ML in... IV ONE ×4 (09:00)
--- NOTE | 2019-06-13 14:06 | OR ---
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 POSTOPERATIVE DIAGNOSES: 1. 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 2. Fungal overgrowth of distal esophagus. OPERATIVE PROCEDURE: Upper GI endoscopy with dilation of gastrojejunostomy ([id number]). ANESTHESIA: IV sedation. INDICATION FOR PROCEDURE: The patient presents once again with symptoms suggestive of stricturing at her gastrojejunostomy and an element of dehydration. The plan is to proceed with upper GI endoscopy with dilation as indicated. Potential risks including bleeding and perforation were discussed, and the patient wishes to proceed. DETAILS OF PROCEDURE: The patient was taken to the operating room and placed in a left lateral decubitus position. IV sedation was administered, after which the upper GI endoscope was passed orally through the length of the esophagus and then into the gastric pouch. No retained food or fluid was noted. The patient was noted to have mild stricture at the gastrojejunostomy with the 1-cm scope being able to slightly be passed through the anastomosis. There was obvious fungal overgrowth within the distal esophagus and gastric pouch as well. A Bard gastrointestinal balloon catheter was then centered across the anastomosis and inflated to 36-Guyanese size. This was held in position for 1 minute, after which, the balloon catheter was deflated and withdrawn, and the procedure then concluded. There were no evident complications. The patient will be given Diflucan 200 mg daily x3 days. She has a followup appointment with Kellie Bennett. In the event that she develops recurrent stricturing and require additional hydration, at this point, she is having difficulty with IV access; we will place a port concurrently with the next session of dilation if needed. Winston Khan MD /[id number]
== END 2019-06-05 10:02 | disposition home or self-care (01) ==
LOC: JP.SDS 05:29
PROVIDERS: ATTEND Surgery
DX: K95.89 Other complications of other bariatric procedure (principal); E86.0 Dehydration; F31.9 Bipolar disorder, unspecified
CPT/HCPCS: 43245; J2250; J2704; J3010; J3411; J3420; J3490; J7120

== ENCOUNTER 2019-06-09 13:56 | Emergency (ER) | payer MEDICAID ==
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
[2019-06-09] MEDS ORDERED: Bacitracin Oint 1 GM U/D Packet TOP ONE (14:18)
[2019-06-09] MEDS ORDERED: Sodium Chloride 0.9% 10 ML Syringe FLUSH ONE (14:21)
[2019-06-09] MEDS ORDERED: Iopamidol 612 MG/ML 150 ML Bottle IV SCH (14:30)
[2019-06-09] MEDS ORDERED: Ketorolac 30 MG/ML SDV IVPUSH ONE (14:50)
[2019-06-09 15:10] VITALS: BP 107/57; PULSE 90
--- NOTE | 2019-06-09 15:17 | CRLCT ---
Indication: Trauma. Technique: Multiple contiguous axial images were obtained from the lung bases through the symphysis pubis after the intravenous administration 150 milliliters Isovue-300. Please note that all CT scans at this facility use dose modulation, iterative reconstruction, and/or weight-based dosing when appropriate to reduce radiation dose to as low as reasonably achievable. Comparison: May 10, 2019. Findings: A focal opacity is identified at the left lung base. This may represent atelectasis. This measures approximately 1.6 cm in size. This should be followed. The liver, spleen, pancreas, adrenals, and kidneys are normal. No intrahepatic biliary ductal dilatation is identified. Postsurgical changes of cholecystectomy are identified. Postsurgical changes of a gastric bypass are seen. The adrenals and kidneys are normal. No hydronephrosis or hydroureter is identified. No renal/ureteral calculi identified. A fat containing umbilical hernia is identified. In the pelvis, the urinary bladder and uterus are grossly normal. The small and large bowel are normal in caliber. A trace amount of free fluid is identified within the pelvis. No free air is identified within the abdomen or pelvis. The small large bowel are normal in caliber. The aorta is normal in caliber. Mild degenerative changes of the spine are identified. No fracture or subluxation is identified. Impression: No evidence of injury of the abdomen or pelvis. Opacities identified at the left lung base. Follow-up with us is recommended. Postoperative changes of a cholecystectomy and gastric bypass. Small ventral hernia. Please note that all CT scans at this facility use dose modulation, iterative reconstruction, and/or weight-based dosing when appropriate to reduce radiation dose to as low as reasonably achievable. Dictated by Valerie Tapia MD @ Jun 09 2019 3:10PM Signed by Dr. Valerie Tapia @ Jun 09 2019 3:15PM
== END 2019-06-09 15:41 | disposition home or self-care (01) ==
LOC: JP.ED 13:56
DX: S61.411A Laceration without foreign body of right hand, initial encounter (principal); S30.1XXA Contusion of abdominal wall, initial encounter; S70.212A Abrasion, left hip, initial encounter; S70.311A Abrasion, right thigh, initial encounter; J45.909 Unspecified asthma, uncomplicated; F31.9 Bipolar disorder, unspecified; K21.9 Gastro-esophageal reflux disease without esophagitis; Z88.8 Allergy status to other drugs, medicaments and biological substances; Z79.899 Other long term (current) drug therapy; Z86.718 Personal history of other venous thrombosis and embolism; Z86.14 Personal history of Methicillin resistant Staphylococcus aureus infection; V86.59XA Driver of other special all-terrain or other off-road motor vehicle injured in nontraffic accident, initial encounter
CPT/HCPCS: 12001; 36415; 74177; 80053; 85025; 96374; 99285; J1885; J2001; J7030

== ENCOUNTER 2019-10-20 13:12 | Emergency (ER) | payer MEDICAID ==
[2019-10-20 13:42] VITALS: BP 110/71; PULSE 97
[2019-10-20] MEDS ORDERED: Ketorolac 60 MG/2 ML SDV IM ONE (14:24)
--- NOTE | 2019-10-20 14:30 | EDM.PDOC ---
ED HPI GENERAL MEDICAL PROBLEM - General Chief Complaint: ENT Problem Stated Complaint: SWELLING LT SIDE FACE/EAR Time Seen by Provider: 10/20/19 14:15 Source of Information: Reports: Patient, Old Records History Limitations: Reports: No Limitations - History of Present Illness INITIAL COMMENTS - FREE TEXT/NARRATIVE: 39 yo female with about a 3 day hx of progressive pain to the L side of her face. No fever. Is taking acetaminophen without adequate relief. Has not been to the clinic. Does clench her teeth when she sleeps. Has most pain with opening her mouth or eating. Onset: Gradual Onset Date: 10/17/19 Duration: Day(s): (3+), Getting Worse Location: Reports: Face (R ear area) Quality: Reports: Ache Severity: Moderate Improves with: Reports: Rest Worsens with: Reports: Eating, Other (opening her mouth) Context: Reports: Other (see HPI) Associated Symptoms: Reports: No Other Symptoms. 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 Left Ear Pain Score (Numeric/FACES): 8 - Related Data Allergies Allergy/AdvReac Type Severity Reaction Status Date / Time gabapentin Allergy Abdominal Verified 06/09/19 14:10 Pain ondansetron AdvReac Headache Verified 06/09/19 14:10 [From Zofran (as hydrochloride)] Home Meds: Home Meds QUEtiapine [SEROquel] 600 mg PO BEDTIME 02/24/17 [History] ALPRAZolam [Xanax] 1 mg PO BID PRN 09/28/17 [History] Benazepril [Lotensin] 5 mg PO DAILY 03/03/18 [History] Metaxalone 800 mg PO TID 09/03/18 [History] Dicyclomine [Bentyl] 10 mg PO QIDACANDBED 04/02/19 [History] Omeprazole 20 mg PO BID 04/02/19 [History] Promethazine [Phenergan] 25 mg PO Q4H PRN 04/02/19 [History] Venlafaxine [Effexor] 37.5 mg PO BID 04/02/19 [History] lamoTRIgine [Lamotrigine] 150 mg PO DAILY 04/03/19 [History] Acetaminophen [Tylenol] 650 mg PO Q6H cup 04/05/19 [Rx] Hyoscyamine Sulfate [Levsin-Sl] 0.125 mg SL Q6H PRN 06/04/19 [History] Vitamin E 800 unit PO DAILY 06/04/19 [History] Past Medical History HEENT History: Reports: Impaired Vision, Other (See Below) Other HEENT History: tonsil abcess present. 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 enlarged liver and only 1/2 functions - Infectious Disease History Infectious Disease History: Reports: Chicken Pox - Past Surgical History Head Surgeries/Procedures: Reports: None HEENT Surgical History: Reports: Tonsillectomy Cardiovascular Surgical History: Reports: Cardiac Ablation, Other (See Below) Other Cardiovascular Surgeries/Procedures: 2 heart caths Respiratory Surgical History: Reports: None GI Surgical History: Reports: Appendectomy, Bariatric Procedure, Cholecystectomy , Colonoscopy, EGD, Yue Fundoplication, Other (See Below) Female Surgical History: Reports: Hysterectomy, Salpingo-Oophorectomy Neurological Surgical History: Reports: None Musculoskeletal Surgical History: Reports: None Dermatological Surgical History: Reports: None Social & Family History - Family History Family Medical History: Noncontributory Cardiac: Reports: Bypass, Stent Musculoskeletal: Reports: Arthritis, Back pain, Chronic Neurological: Reports: Dementia, Parkinson's Endocrine/Metabolic: Reports: Hypothyroidism, IDDM Oncologic: Reports: Liver, Lung, Ovarian - Tobacco Use Smoking Status *Q: Never Smoker - Caffeine Use Caffeine Use: Reports: None Caffeine Use Comment: havent any caffeine for 4 days now - Recreational Drug Use Recreational Drug Use: No ED ROS ENT - Review of Systems Review Of Systems: See Below Constitutional: Reports: No Symptoms HEENT: Reports: Ear Pain (Left). Denies: Ear Discharge, Eye Discharge, Hearing Loss, Nose Pain, Rhinitis, Sinus Problem, Throat Pain, Throat Swelling Respiratory: Reports: No Symptoms Cardiovascular: Reports: No Symptoms GI/Abdominal: Reports: No Symptoms Skin: Reports: No Symptoms Neurological: Reports: No Symptoms ED EXAM, ENT - Physical Exam Exam: See Below Exam Limited By: No Limitations General Appearance: Alert, WD/WN, Mild Distress Eye Exam: Bilateral Eye: Normal Inspection Ears: Normal External Exam, Normal Canal, Hearing Grossly Normal, Normal TMs, Other (L TMJ area painful with palpation) Nose: Normal Inspection, No Blood Mouth/Throat: Normal Inspection, Normal Lips, Normal Oropharynx, Normal Teeth. No: Dental Pain, Dental Tenderness, Dental Trauma, Muffled Voice, Pharyngeal Erythema, Throat Pain, Throat Swelling, Tonsillar Erythema, Tonsillar Exudates, Tonsillar Swelling Head: Atraumatic, Normocephalic Respiratory/Chest: No Respiratory Distress, Lungs Clear, Normal Breath Sounds, No Accessory Muscle Use Cardiovascular: Regular Rate, Rhythm, No Edema Extremities: Normal Inspection. No: Non-Tender, No Pedal Edema Neurological: Alert, Oriented, CN II-XII Intact, Normal Cognition, No Motor/ Sensory Deficits Psychiatric: Normal Affect, Normal Mood Skin: Warm, Dry, Intact, Normal Color, No Rash Course - Vital Signs Last Recorded V/S: Last Vital Signs Temp 36.3 C 10/20/19 13:49 Pulse 97 10/20/19 13:49 Resp 17 10/20/19 13:49 BP 110/71 10/20/19 13:49 Pulse Ox 99 10/20/19 13:49 - Orders/Labs/Meds Orders: Active Orders 24 hr Category Date Time Status Ketorolac [Toradol] Med 10/20/19 14:24 Once 60 mg IM ONETIME ONE Departure - Departure Time of Disposition: 14:28 Disposition: Home, Self-Care 01 Condition: Fair Clinical Impression: Left-sided temporomandibular joint pain-dysfunction syndrome - Discharge Information *PRESCRIPTION DRUG MONITORING PROGRAM REVIEWED*: No *COPY OF PRESCRIPTION DRUG MONITORING REPORT IN PATIENT RUIZ: No Instructions: Temporomandibular Joint Syndrome Referrals: Medina Casas PA [Primary Care Provider] - Additional Instructions: Take Flexeril at bedtime. Take ibuprofen 600 mg every 6 hrs with food, next dose in 6 hrs. Take acetaminophen 1000 mg every 6 hrs as needed. Soft diet and no gum chewing or talking. Recheck with your provider in 2-3 days. Sepsis Event Note - Evaluation Sepsis Screening Result: No Definite Risk - Focused Exam Vital Signs: Vital Signs Temp Pulse Resp BP Pulse Ox 10/20/19 13:49 36.3 C 97 17 110/71 99 10/20/19 13:40 36.3 C 97 17 110/71 99 Date Exam was Performed: 10/20/19 Time Exam was Performed: 14:24 - My Orders Last 24 Hours: My Active Orders 10/20/19 14:24 Ketorolac [Toradol] 60 mg IM ONETIME ONE - Assessment/Plan Last 24 Hours: My Active Orders 10/20/19 14:24 Ketorolac [Toradol] 60 mg IM ONETIME ONE
== END 2019-10-20 14:40 | disposition home or self-care (01) ==
LOC: JP.ED 13:12
DX: M26.622 Arthralgia of left temporomandibular joint (principal); J45.909 Unspecified asthma, uncomplicated; K21.9 Gastro-esophageal reflux disease without esophagitis; F41.9 Anxiety disorder, unspecified; F32.9 Major depressive disorder, single episode, unspecified; E66.9 Obesity, unspecified; Z68.34 Body mass index [BMI] 34.0-34.9, adult; Z86.718 Personal history of other venous thrombosis and embolism; Z88.8 Allergy status to other drugs, medicaments and biological substances; Z79.899 Other long term (current) drug therapy
CPT/HCPCS: 96372; 99283; J1885

== ENCOUNTER 2019-12-17 12:03 | Emergency (ER) | payer MEDICAID ==
[2019-12-17 12:09] VITALS: BP 118/63; PULSE 95
[2019-12-17] MEDS ORDERED: Acetaminophen 500 MG Tab PO ONE (12:26)
--- NOTE | 2019-12-17 12:33 | EDM.PDOC ---
ED HPI GENERAL MEDICAL PROBLEM - General Chief Complaint: General Stated Complaint: MEDICAL [facility]IA [facility] Time Seen by Provider: 12/17/19 12:20 Source of Information: Reports: Patient, EMS, Old Records History Limitations: Reports: No Limitations - History of Present Illness INITIAL COMMENTS - FREE TEXT/NARRATIVE: 39 yo female "passed out" in her kitchen on Tuesday night hitting the back of her head on the counter as she fell. Has had nausea, a headache and mild dizziness since that time. Is not on any anticoagulants. Has not been seen for this before today. Comes in via EMS because she does not have a car. She called the [facility] and they told her to "call an ambulance and go to the ER". 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) (none) - Related Data Allergies Allergy/AdvReac Type Severity Reaction Status Date / Time gabapentin Allergy Abdominal Verified 06/09/19 14:10 Pain ondansetron AdvReac Headache Verified 06/09/19 14:10 [From Zofran (as hydrochloride)] Home Meds: Home Meds QUEtiapine [SEROquel] 600 mg PO BEDTIME 02/24/17 [History] ALPRAZolam [Xanax] 1 mg PO BID PRN 09/28/17 [History] Benazepril [Lotensin] 5 mg PO DAILY 03/03/18 [History] Metaxalone 800 mg PO TID 09/03/18 [History] Dicyclomine [Bentyl] 10 mg PO QIDACANDBED 04/02/19 [History] Omeprazole 20 mg PO BID 04/02/19 [History] Promethazine [Phenergan] 25 mg PO Q4H PRN 04/02/19 [History] Venlafaxine [Effexor] 37.5 mg PO BID 04/02/19 [History] lamoTRIgine [Lamotrigine] 150 mg PO DAILY 04/03/19 [History] Acetaminophen [Tylenol] 650 mg PO Q6H cup 04/05/19 [Rx] Hyoscyamine Sulfate [Levsin-Sl] 0.125 mg SL Q6H PRN 06/04/19 [History] Vitamin E 800 unit PO DAILY 06/04/19 [History] Past Medical History HEENT History: Reports: Impaired Vision, Other (See Below) Other HEENT History: tonsil abcess present. 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 enlarged liver and only 1/2 functions - Infectious Disease History Infectious Disease History: Reports: Chicken Pox - Past Surgical History Head Surgeries/Procedures: Reports: None HEENT Surgical History: Reports: Tonsillectomy Cardiovascular Surgical History: Reports: Cardiac Ablation, Other (See Below) Other Cardiovascular Surgeries/Procedures: 2 heart caths Respiratory Surgical History: Reports: None GI Surgical History: Reports: Appendectomy, Bariatric Procedure, Cholecystectomy , Colonoscopy, EGD, Yue Fundoplication, Other (See Below) Female Surgical History: Reports: Hysterectomy, Salpingo-Oophorectomy Neurological Surgical History: Reports: None Musculoskeletal Surgical History: Reports: None Dermatological Surgical History: Reports: None Social & Family History - Family History Family Medical History: Noncontributory Cardiac: Reports: Bypass, Stent Musculoskeletal: Reports: Arthritis, Back pain, Chronic Neurological: Reports: Dementia, Parkinson's Endocrine/Metabolic: Reports: Hypothyroidism, IDDM Oncologic: Reports: Liver, Lung, Ovarian - Caffeine Use Caffeine Use: Reports: None Caffeine Use Comment: havent any caffeine for 4 days now ED ROS GENERAL - Review of Systems Review Of Systems: See Below Constitutional: Reports: No Symptoms HEENT: Reports: No Symptoms Respiratory: Reports: No Symptoms Cardiovascular: Reports: Lightheadedness GI/Abdominal: Reports: Nausea. Denies: Black Stool, Bloody Stool, Diarrhea, Vomiting : Reports: No Symptoms Musculoskeletal: Reports: Neck Pain Skin: Reports: No Symptoms Neurological: Reports: Headache Psychiatric: Reports: No Symptoms ED EXAM, GENERAL - Physical Exam Exam: See Below Exam Limited By: No Limitations General Appearance: Alert, WD/WN, No Apparent Distress Eye Exam: Bilateral Eye: Normal Inspection Ears: Normal External Exam, Normal Canal, Hearing Grossly Normal, Normal TMs Ear Exam: Bilateral Ear: Auricle Normal, Canal Normal, TM normal Nose: Normal Inspection, No Blood Throat/Mouth: Normal Inspection, Normal Lips, Normal Oropharynx, Normal Voice, No Airway Compromise Head: Atraumatic, Normocephalic Neck: Normal Inspection, Full Range of Motion, Tender Lateral. No: Non-Tender, Lymphadenopathy (R), Lymphadenopathy (L) Respiratory/Chest: No Respiratory Distress, Lungs Clear, Normal Breath Sounds, No Accessory Muscle Use Cardiovascular: Regular Rate, Rhythm, No Edema GI/Abdominal: Normal Bowel Sounds, Soft, Non-Tender, No Distention Back Exam: Normal Inspection. No: CVA Tenderness (R), CVA Tenderness (L) Extremities: Normal Inspection, Normal Range of Motion, Non-Tender, No Pedal Edema Neurological: Alert, Oriented, CN II-XII Intact, Normal Cognition, No Motor/ Sensory Deficits Psychiatric: Normal Affect, Normal Mood Skin Exam: Warm, Dry, Intact, Normal Color, No Rash Course - Vital Signs Last Recorded V/S: Last Vital Signs Temp 36.4 C 12/17/19 12:29 Pulse 95 12/17/19 12:29 Resp 16 12/17/19 12:29 BP 118/63 12/17/19 12:29 Pulse Ox 96 12/17/19 12:29 Orthostatic Blood Pressure [ 106/54 Standing] Orthostatic Blood Pressure [ 106/64 Sitting] Orthostatic Blood Pressure [ 107/61 Supine] - Orders/Labs/Meds Orders: Active Orders 24 hr Category Date Time Status Orthostatic Vital Signs [RC] ASDIRECTED Care 12/17/19 12:15 Active Meds: Medications Discontinued Medications Generic Name Dose Route Start Last Admin Trade Name Freq PRN Reason Stop Dose Admin Acetaminophen 1,000 mg 12/17/19 12:26 12/17/19 13:01 Tylenol Extra Strength PO 12/17/19 12:27 1,000 mg ONETIME ONE Administration Lactated Ringer's 1,000 mls @ 1,000 mls/hr 12/17/19 12:52 12/17/19 13:02 Ringers, Lactated IV 12/17/19 13:51 1,000 mls/hr BOLUS ONE Administration - Radiology Interpretation Free Text/Narrative:: Head CT scan-neg Cervical spine CT scan-neg CT Results Date: 12/17/19 Departure - Departure Time of Disposition: 14:09 Disposition: Home, Self-Care 01 Condition: Fair Clinical Impression: Concussion Qualifiers: Encounter type: initial encounter Loss of consciousness presence/duration: with LOC of unspecified duration Qualified Code(s): S06.0X9A - Concussion with loss of consciousness of unspecified duration, initial encounter Neck strain Qualifiers: Encounter type: initial encounter Qualified Code(s): S16.1XXA - Strain of muscle, fascia and tendon at neck level, initial encounter - Discharge Information *PRESCRIPTION DRUG MONITORING PROGRAM REVIEWED*: Not Applicable *COPY OF PRESCRIPTION DRUG MONITORING REPORT IN PATIENT RUIZ: Not Applicable Referrals: PCP,None [Primary Care Provider] - Forms: ED Department Discharge Additional Instructions: Acetaminophen as needed. Rest. No exertion. Use your nausea medicine as needed. Recheck with your provider as needed. Sepsis Event Note - Focused Exam Vital Signs: Vital Signs Temp Pulse Resp BP Pulse Ox 12/17/19 12:29 36.4 C 95 16 118/63 96 12/17/19 12:08 36.4 C 95 16 118/63 96 Date Exam was Performed: 12/17/19 Time Exam was Performed: 14:08 - My Orders Last 24 Hours: My Active Orders 12/17/19 12:15 Orthostatic Vital Signs [RC] ASDIRECTED - Assessment/Plan Last 24 Hours: My Active Orders 12/17/19 12:15 Orthostatic Vital Signs [RC] ASDIRECTED
[2019-12-17] MEDS ORDERED: Lactated Ringers 1,000 ML IV ONE (12:52)
--- NOTE | 2019-12-17 13:16 | CT ---
Head wo Cont, Cervical Spine wo Cont CLINICAL HISTORY: Nausea and dizziness, previous fall COMPARISON: None TECHNIQUE: Transverse scans were obtained from the base of the skull through the vertex without IV contrast on a multislice, multidetector CT scanner. Auto dosage reduction and iterative reconstruction techniques employed. FINDINGS: No focal abnormal parenchymal densities are identified. There is no mass effect, hemorrhage, or extraaxial collection. The basal cisterns and sulci over the convexities are normal. The ventricles are normal. IMPRESSION: No acute intracranial process Cervical Spine wo Cont TECHNIQUE: Multiple CT sections were taken through the cervical spine in the transaxial projection. Coronal and sagittal views were reconstructed. Images were viewed at bone as well as soft tissue windows on a digital workstation. Auto dosage reduction and iterative reconstruction techniques employed. FINDINGS: There is a mild levoscoliosis. This could be due to spasm Vertebral body heights are maintained. There is a vertebral hemangioma in C7. Alignment is maintained. Pedicles appear intact Axial images show no significant encroachment on the spinal canal or neural foramina. IMPRESSION: Levoscoliosis and straightening of cervical lordosis may indicate spasm No fracture or subluxation
[2019-12-17] MEDS ORDERED: Cyclobenzaprine 10 MG Tab PO ONE (14:25)
== END 2019-12-17 14:30 | disposition home or self-care (01) ==
LOC: JP.ED 12:03
DX: S06.0X9A Concussion with loss of consciousness of unspecified duration, initial encounter (principal); S16.1XXA Strain of muscle, fascia and tendon at neck level, initial encounter; Z86.718 Personal history of other venous thrombosis and embolism; J45.909 Unspecified asthma, uncomplicated; K21.9 Gastro-esophageal reflux disease without esophagitis; F41.9 Anxiety disorder, unspecified; F32.9 Major depressive disorder, single episode, unspecified; E66.9 Obesity, unspecified; Z68.34 Body mass index [BMI] 34.0-34.9, adult; Z88.8 Allergy status to other drugs, medicaments and biological substances; Z79.899 Other long term (current) drug therapy; W19.XXXA Unspecified fall, initial encounter; W22.8XXA Striking against or struck by other objects, initial encounter; Y92.000 Kitchen of unspecified non-institutional (private) residence as the place of occurrence of the external cause
CPT/HCPCS: 70450; 72125; 96360; 99285; A9270; J7120

== ENCOUNTER 2020-11-01 15:54 | Emergency (ER) | payer MEDICAID ==
[2020-11-01 16:17] VITALS: BP 94/55; PULSE 82
[2020-11-01] MEDS ORDERED: fentaNYL 100 MCG/2 ML SDV IM ONE (16:30)
--- NOTE | 2020-11-01 16:31 | EDM.PDOC ---
ED HPI GENERAL MEDICAL PROBLEM - General Chief Complaint: Lower Extremity Injury/Pain Stated Complaint: FELL/LEFT LEG PAIN Time Seen by Provider: 11/01/20 16:28 Source of Information: Reports: Patient, Family, RN Notes Reviewed History Limitations: Reports: No Limitations - History of Present Illness INITIAL COMMENTS - FREE TEXT/NARRATIVE: 40-year-old female presents emergency department today complaining of pain in her left ankle she twisted her ankle when she tripped over the dog, cannot bear weight - Related Data Allergies Allergy/AdvReac Type Severity Reaction Status Date / Time gabapentin Allergy Abdominal Verified 11/01/20 16:07 Pain ondansetron AdvReac Headache Verified 11/01/20 16:07 [From Zofran (as hydrochloride)] Home Meds: Home Meds QUEtiapine [SEROquel] 600 mg PO BEDTIME 02/24/17 [History] ALPRAZolam [Xanax] 1 mg PO BID PRN 09/28/17 [History] Benazepril [Lotensin] 5 mg PO DAILY 03/03/18 [History] Metaxalone 800 mg PO TID 09/03/18 [History] Dicyclomine [Bentyl] 10 mg PO QIDACANDBED 04/02/19 [History] Omeprazole 20 mg PO BID 04/02/19 [History] Promethazine [Phenergan] 25 mg PO Q4H PRN 04/02/19 [History] Venlafaxine [Effexor] 37.5 mg PO BID 04/02/19 [History] lamoTRIgine [Lamotrigine] 150 mg PO DAILY 04/03/19 [History] Acetaminophen [Tylenol] 650 mg PO Q6H cup 04/05/19 [Rx] Hyoscyamine Sulfate [Levsin-Sl] 0.125 mg SL Q6H PRN 06/04/19 [History] Vitamin E 800 unit PO DAILY 06/04/19 [History] Past Medical History HEENT History: Reports: Impaired Vision, Other (See Below) Other HEENT History: tonsil abcess present. 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 enlarged liver and only 1/2 functions - Infectious Disease History Infectious Disease History: Reports: Chicken Pox - Past Surgical History Head Surgeries/Procedures: Reports: None HEENT Surgical History: Reports: Tonsillectomy Cardiovascular Surgical History: Reports: Cardiac Ablation, Other (See Below) Other Cardiovascular Surgeries/Procedures: 2 heart caths Respiratory Surgical History: Reports: None GI Surgical History: Reports: Appendectomy, Bariatric Procedure, Cholecyst ectomy, Colonoscopy, EGD, Yue Fundoplication, Other (See Below) Other GI Surgeries/Procedures: RNY 04/03/19 Female Surgical History: Reports: Hysterectomy, Salpingo-Oophorectomy Endocrine Surgical History: Reports: None Neurological Surgical History: Reports: None Musculoskeletal Surgical History: Reports: None Dermatological Surgical History: Reports: None Social & Family History - Family History Family Medical History: No Pertinent Family History Cardiac: Reports: Bypass, Stent Musculoskeletal: Reports: Arthritis, Back pain, Chronic Neurological: Reports: Dementia, Parkinson's Endocrine/Metabolic: Reports: Hypothyroidism, IDDM Oncologic: Reports: Liver, Lung, Ovarian - Tobacco Use Tobacco Use Status *Q: Current Every Day Tobacco User Years of Tobacco use: 1 Packs/Tins Daily: 1 - Caffeine Use Caffeine Use: Reports: None Caffeine Use Comment: havent any caffeine for 4 days now Review of Systems - Review of Systems Review Of Systems: See Below Musculoskeletal: Reports: Joint Pain (Left ankle pain) ED EXAM, GENERAL - Physical Exam Exam: See Below Free Text/Narrative:: Examination left ankle and on appreciate any erythema there is no edema she does not tolerate any flexion extension or rotation of the ankle she is tender to even the lightest touch around the ankle joint pedal pulses +2 Course - Vital Signs Last Recorded V/S: Last Vital Signs Temp 97.5 F 11/01/20 16:15 Pulse 82 11/01/20 16:15 Resp 14 11/01/20 16:15 BP 94/55 L 11/01/20 16:15 Pulse Ox 94 L 11/01/20 16:15 - Orders/Labs/Meds Orders: Active Orders 24 hr Category Date Time Status Ankle Min 3V Lt [CR] Stat Exams 11/01/20 16:29 Taken Foot 2V Lt [CR] Stat Exams 11/01/20 16:57 Taken Meds: Medications Discontinued Medications Generic Name Dose Route Start Last Admin Trade Name [place] PRN Reason Stop Dose Admin Fentanyl 50 mcg 11/01/20 16:30 11/01/20 16:47 Sublimaze IM 11/01/20 16:31 50 mcg ONETIME ONE Administration Departure - Departure Time of Disposition: 17:32 Disposition: Home, Self-Care 01 Condition: Fair Clinical Impression: Sprain of left foot Qualifiers: Encounter type: initial encounter Qualified Code(s): S93.602A - Unspecified sprain of left foot, initial encounter - Discharge Information Referrals: Medina Casas PA [Primary Care Provider] - Forms: ED Department Discharge Additional Instructions: Continue to use the crutches and Cam walker boot for pain control and comfort, we will contact you on Tuesday after the film is officially read by radiology if there is a fracture. Otherwise use Tylenol Motrin as needed for pain control follow-up your primary care 3 to 5 days if not better Sepsis Event Note (ED) - Evaluation Sepsis Screening Result: No Definite Risk - Focused Exam Vital Signs: Vital Signs Temp Pulse Resp BP Pulse Ox 11/01/20 16:15 97.5 F 82 14 94/55 L 94 L - My Orders Last 24 Hours: My Active Orders 11/01/20 16:29 Ankle Min 3V Lt [CR] Stat 11/01/20 16:57 Foot 2V Lt [CR] Stat - Assessment/Plan Last 24 Hours: My Active Orders 11/01/20 16:29 Ankle Min 3V Lt [CR] Stat 11/01/20 16:57 Foot 2V Lt [CR] Stat Plan: Assessment Acuity = acute Site and laterality = left foot sprain Etiology = trauma at home Manifestations = none Location of injury = Home Lab values = x-rays of the ankle and foot I did review films myself I cannot appreciate any acute process, the official read from radiology is pending Plan She is placed in a cam walker boot with crutches follow-up primary care 3 to 5 days if no improvement will call if radiology appreciates a fracture This note was dictated using dragon voice recognition software please call with any questions on syntax or grammar.
--- NOTE | 2020-11-03 09:35 | CR ---
Ankle Min 3V Lt, CLINICAL HISTORY: Pain, fall FINDINGS: There is a small ossific density posteriorly near the posterior tibiotalar junction. This also overrides the distal fibula. This may be secondary ossification center but also fracture is not excluded. The ankle mortise is asymmetric be widened medially.. There is a irregular linear lucency through the distal fibula without definite fracture line. IMPRESSION: Asymmetric ankle mortise suggests joint laxity or ligamentous injury Small ossific density posterior to the talocalcaneal joint. This may be secondary ossification center or small avulsion fracture Irregular lucency through the distal fibula without definite fracture line. If clinical symptomatology persists or worsens a repeat exam is recommended. FOOT LEFT to views CLINICAL HISTORY:Pain, fall FINDINGS:There is some dorsal tarsal spurring at the navicular. No additional fractures identified. There is no dislocation Impression: No additional fracture or dislocation. Dorsal tarsal spurring
== END 2020-11-01 17:52 | disposition home or self-care (01) ==
LOC: JP.ED 15:54
DX: S93.602A Unspecified sprain of left foot, initial encounter (principal); J45.909 Unspecified asthma, uncomplicated; E66.9 Obesity, unspecified; F17.210 Nicotine dependence, cigarettes, uncomplicated; K21.9 Gastro-esophageal reflux disease without esophagitis; Z88.8 Allergy status to other drugs, medicaments and biological substances; Z68.32 Body mass index [BMI] 32.0-32.9, adult; Z79.899 Other long term (current) drug therapy; X50.1XXA Overexertion from prolonged static or awkward postures, initial encounter
CPT/HCPCS: 73610-26-LT; 73610-LT; 73620-26-LT; 73620-LT; 96372; 99283; 99283-25; J3010

== ENCOUNTER 2021-09-16 07:47 | Day surgery (SDC) | payer MEDICAID ==
[~2021-09-16 07:47] MED LIST: Lactated Ringers 1,000 ML IV SCH; Nozin Nasal Sanitizer NASBOTH ONE; ceFAZolin 1 GM in Premix Bag 1 BAG IV ONE
[2021-09-16] MEDS ORDERED: Lactated Ringers 1,000 ML IV SCH (08:00)
[2021-09-16] MEDS ORDERED: Nozin Nasal Sanitizer NASBOTH ONE (08:00)
[2021-09-16] MEDS ORDERED: fentaNYL 250 MCG/5 ML SDV ONE (08:04)
[2021-09-16] MEDS ORDERED: Succinylcholine 200 MG/10 ML MDV ONE (08:05)
[2021-09-16] MEDS ORDERED: Ondansetron 4 MG/2 ML SDV ONE (08:05)
[2021-09-16] MEDS ORDERED: Neostigmine Methylsulfate 1 MG/ML 5 ML Syringe ONE (08:05)
[2021-09-16] MEDS ORDERED: Glycopyrrolate 0.2 MG/ML 5 ML MDV ONE (08:05)
[2021-09-16] MEDS ORDERED: Rocuronium 50 MG/5 ML Vial ONE (08:05)
[2021-09-16] MEDS ORDERED: Dexamethasone 4 MG/ML SDV ONE (08:05)
[2021-09-16] MEDS ORDERED: Propofol 200 MG/20 ML SDV ONE (08:05)
[2021-09-16] MEDS ORDERED: Bupivacaine 0.5% 30 ML SDV ONE (08:59)
[2021-09-16] MEDS ORDERED: ceFAZolin 1 GM in Premix Bag 1 BAG IV ONE (09:00)
[2021-09-16] MEDS ORDERED: Morphine 2 MG/ML SYRINGE IVPUSH ONE (11:00)
[2021-09-16] MEDS ORDERED: traMADol 50 MG Tab PO ONE (11:22)
[2021-09-16 12:11] VITALS: BP 97/61; PULSE 74
--- NOTE | 2021-09-16 16:15 | OR ---
DATE OF PROCEDURE: 09/16/2021 SURGEON: Andry Henson MD PREOPERATIVE DIAGNOSES: 1. Painful hardware, left tibia. 2. Chondromalacia of patellofemoral joint, left knee. POSTOPERATIVE DIAGNOSES: 1. Painful hardware, left tibia, 2 flat head screws. 2. 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 PROCEDURE: 1. Removal of 2 tibial screws, left leg. 2. Arthroscopy, left knee, with chondroplasty of patella and medial femoral condyle. BUSINESS TEAM LEADER: PEREZ Avendano. ANESTHESIA: General. INDICATIONS: Reva is a 41-year-old female with a prior history of patellofemoral syndrome and chondromalacia, who had undergone a tibial tubercle transfer. She is now having pain and tenderness directly over the screw heads from the tibial tubercle osteotomy. The osteotomy has gone on to heal well. She also had a recent fall directly onto her bent knee and since that time has been having increasing pain in the anterior knee with catching, locking, and giving way. She now presents for arthroscopy for evaluation of the articular cartilage of patellofemoral joint with chondroplasty as necessary and removal of the painful screws. DESCRIPTION OF PROCEDURE: After adequate anesthesia was obtained, the patient was placed supine with a tourniquet about the left upper thigh. Left leg was prepped and draped in sterile fashion. Leg was exsanguinated and tourniquet inflated to 300 mmHg pressure. A small incision was made directly over the most distal of the 2 screws. This was carried down through the subcutaneous tissues, and the head of the screw was identified and freed of soft tissue and removed without difficulty. The more proximal screw head was removed in a similar fashion with a small incision through her previous incision dissecting the screw head free of soft tissue and removing it without difficulty. Attention was turned to the knee where inferior, medial, and lateral portals were established. Scope was introduced and the patellofemoral joint was inspected. This revealed an area of grade 3 chondromalacia with a fairly significant fissuring and flaking of the articular cartilage primarily over the dome of the patella and extending into the lateral facet. Multiple small flakes of articular cartilage were free-floating within the joint and these were removed with the shaver. Moving into the medial compartment, the medial meniscus was intact as was the articular cartilage on the femoral condyle and tibial plateau. ACL and PCL were intact. Lateral compartment likewise had intact meniscus and articular cartilage. Returning to the patellofemoral joint, shaver was used to remove all the loose articular fragments from the area of chondromalacia, smoothing and contouring as much as possible. She did not have any areas of full-thickness cartilage loss in the patella. The knee was taken through range of motion. Patella tracking was evaluated, which actually showed the patella to track well. With the knee flexed, an area of articular cartilage damage on the femoral condyle was identified just at the junction between the trochlea and the weight bearing surface. Defect consisted of near-full thickness cartilage flap, which was free on 3 sides and attached at the inferior edge. This was debrided with a shaver and the edges of the defect were contoured. This showed a near-full thickness cartilage loss, but there was still a layer of articular cartilage present. The knee was taken through range of motion and the articulation with the femur, medial meniscus, and patella was observed with no evidence of catching. All loose fragments were removed. The knee was drained and scope was withdrawn. Port sites were closed with 3-0 Monocryl in a single subcuticular stitch. Incisions for screw removal were closed with 2-0 Vicryl in the deep layer and 3- 0 Monocryl. Steri-Strips were applied. All incisions were infiltrated with 0.5% Marcaine and a sterile dressing was applied. The patient tolerated the procedure well. There were no complications, taken from the operating room in stable condition. Andry Henson MD /[id number] MICHELLE
== END 2021-09-16 12:40 | disposition home or self-care (01) ==
LOC: JP.SDS 07:47
PROVIDERS: ATTEND Specialist
DX: M94.262 Chondromalacia, left knee (principal); T84.84XA Pain due to internal orthopedic prosthetic devices, implants and grafts, initial encounter; J45.909 Unspecified asthma, uncomplicated; K21.9 Gastro-esophageal reflux disease without esophagitis; E66.9 Obesity, unspecified; Z88.8 Allergy status to other drugs, medicaments and biological substances; Z68.34 Body mass index [BMI] 34.0-34.9, adult
CPT/HCPCS: 20680; 29877; 36415; 80053; 85027; A9270; J0330; J0690; J1100; J2270; J2704; J2710; J3010; J3490; J7120; J2405

== ENCOUNTER 2021-11-23 16:12 | Emergency (ER) | payer MEDICAID ==
[2021-11-23 16:28] VITALS: BP 106/60; PULSE 86
== END 2021-11-23 17:37 | disposition home or self-care (01) ==
LOC: JP.ED 16:12
DX: K02.9 Dental caries, unspecified (principal); K21.9 Gastro-esophageal reflux disease without esophagitis; E66.9 Obesity, unspecified; Z68.34 Body mass index [BMI] 34.0-34.9, adult; Z72.0 Tobacco use; Z79.899 Other long term (current) drug therapy
CPT/HCPCS: 99283

== ENCOUNTER 2021-11-29 12:53 | Emergency (ER) | payer MEDICAID ==
[2021-11-29 13:27] VITALS: BP 113/71; PULSE 100
[2021-11-29] MEDS ORDERED: oxyCODONE 5 MG Tab PO ONE (14:09)
== END 2021-11-29 14:22 | disposition home or self-care (01) ==
LOC: JP.ED 12:53
DX: K04.7 Periapical abscess without sinus (principal); J45.909 Unspecified asthma, uncomplicated; E66.9 Obesity, unspecified; Z68.34 Body mass index [BMI] 34.0-34.9, adult; Z87.891 Personal history of nicotine dependence; Z88.8 Allergy status to other drugs, medicaments and biological substances; Z88.6 Allergy status to analgesic agent; Z79.899 Other long term (current) drug therapy
CPT/HCPCS: 99282; A9270

== ENCOUNTER 2022-10-08 06:56 | Inpatient (IN) | payer MEDICAID ==
[2022-10-08] MEDS ORDERED: fentaNYL 250 MCG/5 ML SDV ONE ×2 (07:11→08:22)
[2022-10-08] MEDS ORDERED: Succinylcholine 200 MG/10 ML MDV ONE (07:12)
[2022-10-08] MEDS ORDERED: Propofol 200 MG/20 ML SDV ONE (07:12)
[2022-10-08] MEDS ORDERED: Rocuronium 50 MG/5 ML Vial ONE (07:12)
[2022-10-08] MEDS ORDERED: Dexamethasone 4 MG/ML SDV ONE (07:12)
[2022-10-08] MEDS ORDERED: Glycopyrrolate 0.2 MG/ML 5 ML MDV ONE (07:12)
[2022-10-08] MEDS ORDERED: Neostigmine Methylsulfate 1 MG/ML 5 ML Syringe ONE (07:12)
[2022-10-08] MEDS ORDERED: Dextrose 5%-Lactated Ringers 1,000 ML IV SCH (07:30)
[2022-10-08] MEDS ORDERED: Acetaminophen 500 MG Tab PO ONE (07:30)
[2022-10-08] MEDS ORDERED: Scopolamine 1.5 MG Transdermal Patch TOP SCH (07:30)
[2022-10-08] MEDS ORDERED: Ondansetron 4 MG/2 ML SDV IVPUSH PRN ×2 (07:33→12:02)
[2022-10-08] MEDS ORDERED: diphenhydrAMINE 50 MG/ML SDV IVPUSH PRN ×2 (07:33→12:00)
[2022-10-08] MEDS ORDERED: Naloxone 0.4 MG/ML SDV IVPUSH PRN (07:33)
[2022-10-08] MEDS ORDERED: diphenhydrAMINE 25 MG Cap PO PRN (07:33)
[2022-10-08] MEDS ORDERED: Meropenem 500 MG SDV ONE (07:34)
[2022-10-08 07:45] LABS: ESTIMATED GFR 73 mL/min (>60)
[2022-10-08] MEDS: HYDROmorphone/Normal Saline 6 MG/30 ML PCA Vial IV PRN (07:53)
[2022-10-08] MEDS ORDERED: Naloxone 0.4 MG/ML SDV IV PRN (08:00)
[2022-10-08] MEDS ORDERED: Albuterol/Ipratropium 3.0-0.5 MG/3 ML Neb Soln NEB ONE (08:15)
[2022-10-08] MEDS ORDERED: Ketoconazole 2% Crm 30 GM Tube ONE (08:16)
[2022-10-08] MEDS ORDERED: ceFAZolin 2 GM in Sodium Chloride 0.9% 50 ML IV ONE (08:30)
[2022-10-08] MEDS ORDERED: Linezolid 600 MG/300 ML Premix Bag IRR ONE (08:43)
[2022-10-08] MEDS ORDERED: Ketamine 500 MG/5 ML MDV IV SCH (08:45)
[2022-10-08] MEDS ORDERED: Ketamine 17 MG in Sodium Chloride 0.9% 19.83 ML IV SCH (08:45)
[2022-10-08] MEDS ORDERED: Lactated Ringers 1,000 ML ONE (09:16)
[2022-10-08] MEDS ORDERED: Mupirocin Oint 22 GM Tube ONE (09:42)
[2022-10-08] MEDS ORDERED: fentaNYL 100 MCG/2 ML SDV ONE ×3 (10:40→10:51)
[2022-10-08] MEDS ORDERED: Cyclobenzaprine 10 MG Tab PO PRN (11:53)
[2022-10-08] MEDS ORDERED: ALPRAZolam 0.5 MG Tab PO PRN (11:57)
[2022-10-08] MEDS ORDERED: tiZANidine 2 MG Tab PO PRN (11:58)
[2022-10-08] MEDS ORDERED: Labetalol 20 MG/4 ML Syringe IVPUSH PRN (12:00)
[2022-10-08] MEDS ORDERED: Acetaminophen 500 MG Tab PO PRN (12:00)
[2022-10-08] MEDS ORDERED: Albuterol/Ipratropium 3.0-0.5 MG/3 ML Neb Soln INH PRN (12:00)
[2022-10-08] MEDS ORDERED: Metoclopramide 10 MG/2 ML SDV IVPUSH PRN (12:00)
[2022-10-08] MEDS ORDERED: hydrOXYzine HCL 100 MG/2 ML SDV IM PRN (12:00)
[2022-10-08] MEDS: Dextrose 5%-Lactated Ringers 1,000 ML IV SCH ×2 (13:20→22:19)
[2022-10-08] MEDS ORDERED: lamoTRIgine 25 MG Tab PO PRN (13:41)
[2022-10-08] MEDS: Pantoprazole 40 MG Vial IVPUSH SCH (14:25)
[2022-10-08] MEDS: Acetaminophen 500 MG Tab PO SCH ×2 (14:25→21:47)
[2022-10-08] MEDS: Albuterol/Ipratropium 3.0-0.5 MG/3 ML Neb Soln INH SCH ×2 (14:45→20:00)
[2022-10-08] MEDS: ceFAZolin 2 GM in Sodium Chloride 0.9% 50 ML IV SCH ×2 (15:39→23:30)
[2022-10-08] MEDS ORDERED: MVI, Adult with Vitamin K 10 ML, Thiamine 200 MG, Zinc/Copper/Manganese/Selenium 1 ML i... IV SCH ×4 (16:00)
[2022-10-08] MEDS: Venlafaxine 75 MG Tab PO SCH (20:01)
[2022-10-08] MEDS: lamoTRIgine 25 MG Tab PO SCH (20:01)
[2022-10-08] MEDS: ADVAIR INH SCH (20:03)
[2022-10-08] MEDS: Montelukast 10 MG Tab PO SCH (20:03)
[2022-10-09] MEDS: HYDROmorphone/Normal Saline 6 MG/30 ML PCA Vial IV PRN (03:13)
[2022-10-09] MEDS: Dextrose 5%-Lactated Ringers 1,000 ML IV SCH (04:28)
[2022-10-09 04:51] LABS: ESTIMATED GFR 111 mL/min (>60)
[2022-10-09] MEDS: Acetaminophen 500 MG Tab PO SCH ×3 (05:17→22:24)
[2022-10-09] MEDS: Albuterol/Ipratropium 3.0-0.5 MG/3 ML Neb Soln INH SCH ×4 (07:04→20:04)
[2022-10-09] MEDS: ADVAIR INH SCH ×2 (07:04→20:05)
[2022-10-09] MEDS: lamoTRIgine 25 MG Tab PO SCH ×2 (08:30→20:05)
[2022-10-09] MEDS: SCOPOLAMINE PATCH CHECK TOP SCH (08:31)
[2022-10-09] MEDS: Venlafaxine 75 MG Tab PO SCH ×2 (08:31→20:05)
[2022-10-09] MEDS: Metoprolol Succinate 25 MG Tab.ER PO SCH (08:31)
[2022-10-09] MEDS: ceFAZolin 2 GM in Sodium Chloride 0.9% 50 ML IV SCH (08:39)
[2022-10-09] MEDS ORDERED: Dextrose 5%-Lactated Ringers 1,000 ML IV SCH (08:45)
[2022-10-09] MEDS: Docusate Sodium 100 MG Cap PO SCH ×2 (10:33→20:07)
[2022-10-09] MEDS: Magnesium Sulfate/Water 2 GM in Premix Bag 1 BAG IV SCH ×3 (10:33→22:25)
[2022-10-09] MEDS ORDERED: VARENICLINE 1 MG PO SCH (11:00)
[2022-10-09] MEDS: HYDROmorphone 2 MG Tab PO PRN ×3 (11:16→20:04)
[2022-10-09] MEDS: Pantoprazole 40 MG Vial IVPUSH SCH (12:11)
[2022-10-09] MEDS ORDERED: MVI, Adult with Vitamin K 10 ML, Thiamine 200 MG, Zinc/Copper/Manganese/Selenium 1 ML i... IV SCH ×4 (16:00)
[2022-10-09] MEDS: VARENICLINE 1 MG PO SCH (20:06)
[2022-10-09] MEDS: Montelukast 10 MG Tab PO SCH (20:06)
[2022-10-10] MEDS: HYDROmorphone 2 MG Tab PO PRN ×3 (02:33→11:26)
[2022-10-10] MEDS: Magnesium Sulfate/Water 2 GM in Premix Bag 1 BAG IV SCH ×2 (05:03→09:08)
[2022-10-10] MEDS: Acetaminophen 500 MG Tab PO SCH (05:03)
[2022-10-10 05:06] LABS: ESTIMATED GFR 95 mL/min (>60)
[2022-10-10] MEDS: Albuterol/Ipratropium 3.0-0.5 MG/3 ML Neb Soln INH SCH ×2 (07:01→11:32)
[2022-10-10] MEDS: ADVAIR INH SCH (07:15)
[2022-10-10] MEDS ORDERED: Pantoprazole 40 MG Tab.CR PO SCH (07:30)
[2022-10-10 07:31] VITALS: PULSE 87
[2022-10-10] MEDS ORDERED: Mupirocin Oint 22 GM Tube TOP SCH (09:00)
[2022-10-10] MEDS ORDERED: Cyanocobalamin (Vitamin B12) 1,000 MCG/ML SDV IM ONE (09:00)
[2022-10-10] MEDS: Docusate Sodium 100 MG Cap PO SCH (09:07)
[2022-10-10] MEDS: SCOPOLAMINE PATCH CHECK TOP SCH (09:13)
[2022-10-10] MEDS: lamoTRIgine 25 MG Tab PO SCH (09:13)
[2022-10-10] MEDS: Venlafaxine 75 MG Tab PO SCH (09:13)
[2022-10-10] MEDS: VARENICLINE 1 MG PO SCH (09:15)
[2022-10-10] MEDS: Metoprolol Succinate 25 MG Tab.ER PO SCH (09:15)
[2022-10-10 09:16] VITALS: BP 101/57
== END 2022-10-10 12:10 | disposition home or self-care (01) | DRG 571 ==
LOC: UNDOADMIN 06:56 → JP.SDSSCHI 06:56 → JP.MS 10:00
PROVIDERS: ADMIT Surgery; ATTEND Surgery
PROC: 0JB80ZZ Excision of Abdomen Subcutaneous Tissue and Fascia, Open Approach (ICD-10-PCS; principal; 2022-10-08)
PROC: 0WQF0ZZ Repair Abdominal Wall, Open Approach (ICD-10-PCS; 2022-10-08)
PROC: 0WQF0ZZ Repair Abdominal Wall, Open Approach (ICD-10-PCS; 2022-10-08)
DX: M79.3 Panniculitis, unspecified (principal); K42.0 Umbilical hernia with obstruction, without gangrene; K43.0 Incisional hernia with obstruction, without gangrene; F41.9 Anxiety disorder, unspecified; I10 Essential (primary) hypertension; F31.9 Bipolar disorder, unspecified; Z90.49 Acquired absence of other specified parts of digestive tract; Z90.710 Acquired absence of both cervix and uterus; Z88.8 Allergy status to other drugs, medicaments and biological substances; Z87.891 Personal history of nicotine dependence
CPT/HCPCS: 36415; 80053; 82728; 83735; 83880; 84100; 85025; 88305; 94640; A9270-GY; C9113; J0171; J0330; J0690; J1100; J1170; J1790; J2020; J2185; J2704; J2710; J2765; J2795; J3010; J3411; J3420; J3475; J3490; J7120; J7121; J7620

== ENCOUNTER 2022-10-17 19:32 | Emergency (ER) | payer MEDICAID ==
[2022-10-17 19:47] VITALS: BP 109/62; PULSE 84
[2022-10-17] MEDS ORDERED: Mupirocin Oint 22 GM Tube TOP ONE (20:04)
[2022-10-17] MEDS ORDERED: Mupirocin Oint 22 GM Tube ONE (20:42)
== END 2022-10-17 21:02 | disposition home or self-care (01) ==
LOC: JP.ED 19:32
DX: Z48.00 Encounter for change or removal of nonsurgical wound dressing (principal); R10.84 Generalized abdominal pain; K21.9 Gastro-esophageal reflux disease without esophagitis; E66.9 Obesity, unspecified; Z68.30 Body mass index [BMI] 30.0-30.9, adult; Z88.8 Allergy status to other drugs, medicaments and biological substances
CPT/HCPCS: 36415; 85025; 86140; 99283; A9270-GY

== ENCOUNTER 2023-03-14 08:59 | Emergency (ER) | payer MEDICAID ==
[2023-03-14] MEDS ORDERED: Sodium Chloride 0.9% 10 ML Syringe FLUSH PRN ×2 (10:02→10:16)
[2023-03-14] MEDS ORDERED: HYDROmorphone 0.5 MG/0.5 ML Syringe IVPUSH ONE (10:03)
[2023-03-14] MEDS ORDERED: Sodium Chloride 0.9% 50 ML IV ONE (10:16)
[2023-03-14] MEDS ORDERED: Iopamidol 612 MG/ML 100 ML Bottle IV PRN (10:16)
[2023-03-14 10:17] LABS: BASOPHILS ABSOLUTE AUTO 0.06 K/uL (0.00-0.10); BASOPHILS PERCENT AUTO 1.3 % (0.1-1.3); EOSINOPHILS ABSOLUTE AUTO 0.29 K/uL (0.00-0.40); HEMATOCRIT 38.6 % (34.3-46.0); HEMOGLOBIN 13.2 g/dL (11.2-15.5); IMMATURE GRAN PERCENT AUTO 0.4 % (0.0-0.7); LYMPHOCYTES ABSOLUTE AUTO 2.05 K/uL (0.8-3.3); LYMPHOCYTES PERCENT AUTO 42.7 % (11.4-47.7); MEAN CORPUSCULAR HEMOGLOBIN 30.1 pg (31.6-35.5); MEAN CORPUSCULAR HGB CONC 34.2 g/dL (31.6-35.5); MEAN CORPUSCULAR VOLUME 88.1 fL (81.4-99.0); MONOCYTES ABSOLUTE AUTO 0.26 K/uL (0.20-0.90); MONOCYTES PERCENT AUTO 5.4 % (3.3-12.6); NEUTROPHILS ABSOLUTE AUTO 2.12 K/uL (1.0-7.6); NEUTROPHILS PERCENT AUTO 44.2 % (40.0-78.1); PLATELET COUNT,PLT 291 K/uL (130-375); RED BLOOD CELL COUNT 4.38 M/uL (3.77-5.24); WHITE BLOOD CELL COUNT,WBC 4.8 K/uL (3.2-11.0)
[2023-03-14 10:18] LABS: IMMATURE GRAN ABSOLUTE AUTO 0.02 K/uL (0.00-0.23)
[2023-03-14 11:19] VITALS: BP 128/78; PULSE 70
== END 2023-03-14 11:26 | disposition home or self-care (01) ==
LOC: JP.ED 08:59
DX: K91.872 Postprocedural seroma of a digestive system organ or structure following a digestive system procedure (principal); J45.909 Unspecified asthma, uncomplicated; E66.9 Obesity, unspecified; Z88.6 Allergy status to analgesic agent; Z88.8 Allergy status to other drugs, medicaments and biological substances; Z79.51 Long term (current) use of inhaled steroids; Z87.891 Personal history of nicotine dependence; Z98.84 Bariatric surgery status; Y83.8 Other surgical procedures as the cause of abnormal reaction of the patient, or of later complication, without mention of misadventure at the time of the procedure
CPT/HCPCS: 36415; 74177; 85025; 96374; 99284; J1170; J3490; Q9967

== ENCOUNTER 2023-04-04 07:38 | Day surgery (SDC) | payer MEDICAID ==
[2023-04-04] MEDS ORDERED: Dextrose 5%-Lactated Ringers 1,000 ML IV SCH (08:15)
[2023-04-04] MEDS ORDERED: Midazolam 1 MG/ML 2 ML SDV ONE (08:26)
[2023-04-04] MEDS ORDERED: fentaNYL 50 MCG/ML SDV ONE (08:26)
[2023-04-04] MEDS ORDERED: Propofol 200 MG/20 ML SDV ONE ×3 (08:26→11:04)
[2023-04-04] MEDS: Bupivacaine 0.5% 50 ML MDV ONE ×2 (10:57→11:06)
[2023-04-04] MEDS: Lidocaine 1% with EPINEPHrine 1:100,000 50 ML MDV ONE ×2 (10:59→11:06)
[2023-04-04] MEDS ORDERED: Pregabalin 75 MG Cap PO ONE (12:00)
[2023-04-04 12:04] VITALS: BP 116/62; PULSE 68
== END 2023-04-04 12:25 | disposition home or self-care (01) ==
LOC: JP.SDS 07:38
PROVIDERS: ATTEND Surgery
DX: T81.89XA Other complications of procedures, not elsewhere classified, initial encounter (principal); R73.09 Other abnormal glucose; F31.9 Bipolar disorder, unspecified; Z98.890 Other specified postprocedural states; Z88.8 Allergy status to other drugs, medicaments and biological substances
CPT/HCPCS: 10160; 76998; 82947; A9270; C1751; J2250; J2704; J3010; J3490; J7121

== ENCOUNTER 2023-05-27 15:02 | Emergency (ER) | payer MEDICAID ==
[2023-05-27 15:20] VITALS: BP 109/65; PULSE 106
== END 2023-05-27 16:48 | disposition home or self-care (01) ==
LOC: JP.ED 15:02
DX: K04.7 Periapical abscess without sinus (principal); K02.9 Dental caries, unspecified; J45.909 Unspecified asthma, uncomplicated; K21.9 Gastro-esophageal reflux disease without esophagitis; E10.9 Type 1 diabetes mellitus without complications; E66.9 Obesity, unspecified; Z68.34 Body mass index [BMI] 34.0-34.9, adult; Z79.899 Other long term (current) drug therapy; Z86.718 Personal history of other venous thrombosis and embolism; Z88.6 Allergy status to analgesic agent; Z88.8 Allergy status to other drugs, medicaments and biological substances
CPT/HCPCS: 99282; 99283

== ENCOUNTER 2023-10-24 13:52 | Emergency (ER) | payer MEDICAID ==
[2023-10-24 15:10] VITALS: BP 112/57; PULSE 79
== END 2023-10-24 15:39 | disposition home or self-care (01) ==
LOC: JP.ED 13:52
DX: U07.1 COVID-19 (principal); J45.909 Unspecified asthma, uncomplicated; K21.9 Gastro-esophageal reflux disease without esophagitis; E10.9 Type 1 diabetes mellitus without complications; E66.9 Obesity, unspecified; Z90.49 Acquired absence of other specified parts of digestive tract; Z90.710 Acquired absence of both cervix and uterus; Z79.899 Other long term (current) drug therapy; Z88.8 Allergy status to other drugs, medicaments and biological substances; Z68.32 Body mass index [BMI] 32.0-32.9, adult
CPT/HCPCS: 99283

== ENCOUNTER 2023-11-28 16:44 | Day surgery (SDC) | payer MEDICAID ==
[2023-11-28 09:59] LABS: HEMATOCRIT 39.3 % (34.3-46.0); HEMOGLOBIN 13.4 g/dL (11.2-15.5); MEAN CORPUSCULAR HEMOGLOBIN 31.3 pg (31.6-35.5); MEAN CORPUSCULAR HGB CONC 34.1 g/dL (31.6-35.5); MEAN CORPUSCULAR VOLUME 91.8 fL (81.4-99.0); RED BLOOD CELL COUNT 4.28 M/uL (3.77-5.24); WHITE BLOOD CELL COUNT,WBC 6.5 K/uL (3.2-11.0)
[2023-11-28] MEDS: Nozin Nasal Sanitizer NASBOTH ONE (10:10)
[2023-11-28 10:20] LABS: A/G RATIO 1.1 (1.2-2.2); ALANINE AMINOTRANSFERASE,ALT 36 U/L (12-78); ALBUMIN 3.7 g/dL (3.4-5.0); ALKALINE PHOSPHATASE 173 U/L (46-116); ANION GAP 6.5 mmol/L (5.0-14.0); ASPARTATE AMNIOTRANSFERASE,AST 19 U/L (15-37); BILIRUBIN TOTAL 0.3 mg/dL (0.2-1.0); BLOOD UREA NITROGEN,BUN 13 mg/dL (7-18); CALCIUM 8.4 mg/dL (8.5-10.1); CARBON DIOXIDE,CO2 31 mmol/L (21-32); CHLORIDE,CL 103 mmol/L (100-108); ESTIMATED GFR 72 mL/min (>60); GLUCOSE RANDOM 101 mg/dL (74-106); POTASSIUM,K 3.8 mmol/L (3.6-5.2); PROTEIN TOTAL,TP 7.2 g/dL (6.4-8.2); SODIUM,NA 140 mmol/L (140-148)
[2023-11-28] MEDS: Lactated Ringers 1,000 ML IV SCH (10:25)
[2023-11-28] MEDS: ceFAZolin 2 GM in Premix Bag 1 BAG IV ONE (11:55)
[2023-11-28] MEDS: Bupivacaine 0.5% 50 ML MDV ONE (13:15)
[~2023-11-28 16:44] MED LIST changes: +Dexamethasone 4 MG/ML SDV ONE; +Glycopyrrolate 0.2 MG/ML 5 ML MDV ONE; -Lactated Ringers 1,000 ML IV SCH; +Lactated Ringers 1,000 ML ONE; +Neostigmine Methylsulfate 10 MG/10 ML MDV ONE; -Nozin Nasal Sanitizer NASBOTH ONE; +Ondansetron 4 MG/2 ML SDV ONE; +Propofol 200 MG/20 ML SDV ONE; +Rocuronium 50 MG/5 ML Vial ONE; -ceFAZolin 1 GM in Premix Bag 1 BAG IV ONE; +fentaNYL 100 MCG/2 ML SDV ONE; +fentaNYL 250 MCG/5 ML SDV ONE
[2023-11-28] MEDS: Acetaminophen/oxyCODONE 325-5 MG Tab PO PRN (17:01)
[2023-11-28 17:51] VITALS: BP 109/51; PULSE 66
== END 2023-11-28 17:40 | disposition home or self-care (01) ==
LOC: JP.SDS 17:40
PROVIDERS: ATTEND Specialist
DX: M24.851 Other specific joint derangements of right hip, not elsewhere classified (principal); M70.60 Trochanteric bursitis, unspecified hip; F41.9 Anxiety disorder, unspecified; J45.909 Unspecified asthma, uncomplicated
CPT/HCPCS: 29915; 29916; 36415; 80053; 85027; A9270; C1713; J0690; J1100; J2405; J2704; J2710; J3010; J3490; J7120

== ENCOUNTER 2024-08-06 06:07 | Day surgery (SDC) | payer MEDICAID ==
[2024-08-06 06:31] LABS: HEMATOCRIT 39.7 % (34.3-46.0); HEMOGLOBIN 13.8 g/dL (11.2-15.5); MEAN CORPUSCULAR HEMOGLOBIN 31.8 pg (31.6-35.5); MEAN CORPUSCULAR HGB CONC 34.8 g/dL (31.6-35.5); MEAN CORPUSCULAR VOLUME 91.5 fL (81.4-99.0); RED BLOOD CELL COUNT 4.34 M/uL (3.77-5.24); WHITE BLOOD CELL COUNT,WBC 10.4 K/uL (3.2-11.0)
[2024-08-06 06:47] LABS: ANION GAP 10.8 mmol/L (5.0-14.0); EST CRCL DRUG DOSING (CG) 65.95 mL/min; POTASSIUM,K 3.9 mmol/L (3.6-5.2)
[2024-08-06] MEDS: Nozin Nasal Sanitizer NASBOTH ONE (06:50)
[2024-08-06] MEDS ORDERED: Dexamethasone 4 MG/ML SDV ONE (07:00)
[2024-08-06] MEDS ORDERED: Neostigmine Methylsulfate 10 MG/10 ML MDV ONE (07:00)
[2024-08-06] MEDS ORDERED: Ondansetron 4 MG/2 ML SDV ONE (07:00)
[2024-08-06] MEDS ORDERED: Rocuronium 50 MG/5 ML Vial ONE (07:00)
[2024-08-06] MEDS ORDERED: Propofol 200 MG/20 ML SDV ONE (07:00)
[2024-08-06] MEDS ORDERED: Succinylcholine 200 MG/10 ML MDV ONE (07:00)
[2024-08-06] MEDS ORDERED: Glycopyrrolate 0.2 MG/ML 5 ML MDV ONE (07:00)
[2024-08-06] MEDS ORDERED: fentaNYL 250 MCG/5 ML SDV ONE (07:02)
[2024-08-06] MEDS: Lactated Ringers 1,000 ML IV SCH (07:04)
[2024-08-06] MEDS: ceFAZolin 2 GM in Premix Bag 1 BAG IV ONE (07:45)
[2024-08-06] MEDS: Bupivacaine 0.5% 50 ML MDV ONE (08:37)
[2024-08-06] MEDS: Acetaminophen/HYDROcodone 325-5 MG Tab PO PRN (10:01)
[2024-08-06 10:59] VITALS: BP 110/57; PULSE 70
== END 2024-08-06 11:01 | disposition home or self-care (01) ==
LOC: JP.SDS 06:07
PROVIDERS: ATTEND Specialist
DX: S73.101A Unspecified sprain of right hip, initial encounter (principal); M94.251 Chondromalacia, right hip; M24.051 Loose body in right hip; I10 Essential (primary) hypertension; F41.9 Anxiety disorder, unspecified; Z79.899 Other long term (current) drug therapy
CPT/HCPCS: 01202; 29861; 29862; 36415; 76000; 80048; 85027; A9270; J0330; J0665; J0690; J1100; J1596; J2704; J2710; J3010; J7120; J2405; J3490

== ENCOUNTER 2024-09-12 08:53 | Day surgery (SDC) | payer MEDICAID ==
[2024-09-12 09:15] LABS: HEMATOCRIT 42.1 % (34.3-46.0); HEMOGLOBIN 14.5 g/dL (11.2-15.5); MEAN CORPUSCULAR HEMOGLOBIN 31.9 pg (31.6-35.5); MEAN CORPUSCULAR HGB CONC 34.4 g/dL (31.6-35.5); MEAN CORPUSCULAR VOLUME 92.5 fL (81.4-99.0); RED BLOOD CELL COUNT 4.55 M/uL (3.77-5.24); WHITE BLOOD CELL COUNT,WBC 8.8 K/uL (3.2-11.0)
[2024-09-12] MEDS: Nozin Nasal Sanitizer NASBOTH ONE (09:30)
[2024-09-12 09:37] LABS: A/G RATIO 1.1 (1.2-2.2); ALANINE AMINOTRANSFERASE,ALT 36 U/L (12-78); ALKALINE PHOSPHATASE 155 U/L (46-116); ANION GAP 8.5 mmol/L (5.0-14.0); ASPARTATE AMNIOTRANSFERASE,AST 17 U/L (15-37); BILIRUBIN TOTAL 0.3 mg/dL (0.2-1.0); BLOOD UREA NITROGEN,BUN 13 mg/dL (7-18); CALCIUM 9.6 mg/dL (8.5-10.1); CARBON DIOXIDE,CO2 30 mmol/L (21-32); CHLORIDE,CL 103 mmol/L (100-108); EST CRCL DRUG DOSING (CG) 65.27 mL/min; ESTIMATED GFR 72 mL/min (>60); GLUCOSE RANDOM 100 mg/dL (74-106); POTASSIUM,K 4.2 mmol/L (3.6-5.2); PROTEIN TOTAL,TP 7.8 g/dL (6.4-8.2); SODIUM,NA 141 mmol/L (140-148)
[2024-09-12] MEDS: Lactated Ringers 1,000 ML IV SCH (09:58)
[2024-09-12] MEDS ORDERED: Propofol 200 MG/20 ML SDV ONE (11:34)
[2024-09-12] MEDS ORDERED: Rocuronium 50 MG/5 ML Vial ONE (11:34)
[2024-09-12] MEDS ORDERED: Ondansetron 4 MG/2 ML SDV ONE (11:34)
[2024-09-12] MEDS ORDERED: Glycopyrrolate 0.2 MG/ML 5 ML MDV ONE (11:34)
[2024-09-12] MEDS ORDERED: Neostigmine Methylsulfate 10 MG/10 ML MDV ONE (11:34)
[2024-09-12] MEDS ORDERED: Dexamethasone 4 MG/ML SDV ONE (11:34)
[2024-09-12] MEDS ORDERED: Succinylcholine 200 MG/10 ML MDV ONE (11:34)
[2024-09-12] MEDS ORDERED: fentaNYL 250 MCG/5 ML SDV ONE ×2 (11:35→13:51)
[2024-09-12] MEDS: Bupivacaine 0.5% 50 ML MDV ONE (13:02)
[2024-09-12] MEDS: ceFAZolin 2 GM in Premix Bag 1 BAG IV ONE (13:36)
[2024-09-12] MEDS ORDERED: oxyCODONE 5 MG Tab PO PRN (13:40)
[2024-09-12] MEDS ORDERED: Docusate Sodium 100 MG Cap PO PRN (13:41)
[2024-09-12] MEDS ORDERED: Albuterol 6.7 GM Inhaler INH PRN (13:44)
[2024-09-12] MEDS ORDERED: Non-Formulary Medication 1 Each (Tizanidine [Zanaflex] 4 MG Tablet) PO PRN (13:46)
[2024-09-12] MEDS ORDERED: Hyoscyamine 0.125 MG Tab.SL SL PRN (13:46)
[2024-09-12] MEDS: Tranexamic Acid 850 MG in Sodium Chloride 0.9% 50 ML IV ONE (13:55)
[2024-09-12] MEDS ORDERED: Lactated Ringers 1,000 ML ONE (15:22)
[2024-09-12] MEDS ORDERED: hydrOXYzine HCl 25 MG Tab PO PRN (15:29)
[2024-09-12] MEDS ORDERED: Magnesium Oxide 400 MG Tab PO PRN (15:34)
[2024-09-12] MEDS ORDERED: Naloxone 0.4 MG/ML SDV IVPUSH PRN (16:24)
[2024-09-12] MEDS: HYDROmorphone 1 MG/ML Syringe IVPUSH ONE (16:34)
[2024-09-12] MEDS ORDERED: Dicyclomine 10 MG Cap PO SCH (17:00)
[2024-09-12] MEDS: oxyCODONE 5 MG Tab PO PRN (17:09)
[2024-09-12] MEDS: Acetaminophen 325 MG Tab PO SCH (17:09)
[2024-09-12] MEDS: Pantoprazole 40 MG Tab.CR PO SCH (17:09)
[2024-09-12] MEDS: Prochlorperazine 10 MG/2 ML SDV IVPUSH PRN (17:15)
[2024-09-12] MEDS: HYDROmorphone 2 MG Tab PO PRN (19:42)
[2024-09-12] MEDS: ceFAZolin 2 GM in Premix Bag 1 BAG IV SCH (20:13)
[2024-09-12] MEDS: Formoterol/Mometasone 200-5 MCG 8.8 GM Inhaler IH SCH (20:13)
[2024-09-12] MEDS: Nozin Nasal Sanitizer NASBOTH SCH (20:14)
[2024-09-12] MEDS: Multivitamins with Iron Tab.Chew PO SCH (20:15)
[2024-09-12] MEDS: Montelukast 10 MG Tab PO SCH (20:15)
[2024-09-12] MEDS: Venlafaxine 37.5 MG Cap.ER PO SCH (20:16)
[2024-09-12] MEDS: QUEtiapine 100 MG Tab PO SCH (20:16)
[2024-09-12] MEDS: Calcium Carbonate 500 MG Tab.Chew PO SCH (20:16)
[2024-09-12] MEDS: lamoTRIgine 100 MG Tab PO SCH (20:16)
[2024-09-12] MEDS: tiZANidine 2 MG Tab PO PRN (21:59)
[2024-09-12] MEDS: Sodium Chloride 0.9% 1,000 ML IV SCH (21:59)
[2024-09-13] MEDS: Morphine 2 MG/ML SYRINGE IVPUSH PRN (03:52)
[2024-09-13 05:28] LABS: HEMATOCRIT 34.2 % (34.3-46.0); MEAN CORPUSCULAR HEMOGLOBIN 32.6 pg (31.6-35.5); MEAN CORPUSCULAR HGB CONC 35.1 g/dL (31.6-35.5); MEAN CORPUSCULAR VOLUME 92.9 fL (81.4-99.0); RED BLOOD CELL COUNT 3.68 M/uL (3.77-5.24); WHITE BLOOD CELL COUNT,WBC 12.4 K/uL (3.2-11.0)
[2024-09-13] MEDS: Ferrous Sulfate 325 MG Tab PO SCH (08:02)
[2024-09-13] MEDS: Vitamin B Complex Tab PO SCH (08:02)
[2024-09-13] MEDS: Lactobacillus Rhamnosus GG (Probiotic) Cap PO SCH (08:02)
[2024-09-13] MEDS: Metoprolol Succinate 25 MG Tab.ER PO SCH (08:03)
[2024-09-13] MEDS: Aspirin 325 MG Tab.EC PO SCH (08:03)
[2024-09-13] MEDS: Cholecalciferol (Vitamin D3) 25 MCG Tab PO SCH (08:05)
[2024-09-13] MEDS ORDERED: ELDERBERRY FRUIT 350 MG PO SCH (09:00)
[2024-09-13] MEDS ORDERED: GINSENG 100 MG PO SCH (09:00)
[2024-09-13] MEDS ORDERED: Non-Formulary Medication 1 Each (Flaxseed Oil [Flaxseed] 1,000 MG Capsule) PO SCH (09:00)
[2024-09-13] MEDS ORDERED: [UNRECOGNIZED DRUG - OTHER] MC SCH (09:00)
[2024-09-13] MEDS ORDERED: Non-Formulary Medication 1 Each (Vitamin E [Vitamin E] 400 UNIT Capsule) PO SCH (09:00)
[2024-09-13] MEDS: ALPRAZolam 0.5 MG Tab PO SCH (09:03)
[2024-09-13] MEDS ORDERED: Sodium Chloride 0.9% 10 ML Syringe IV PRN (09:43)
[2024-09-13] MEDS: Dicyclomine 10 MG Cap PO SCH (11:30)
[2024-09-13 12:13] VITALS: BP 112/54; PULSE 68
[2024-09-13] MEDS ORDERED: Apixaban 2.5 MG Tab PO SCH (21:00)
== END 2024-09-13 13:11 | disposition home or self-care (01) ==
LOC: JP.SDS 08:53 → JP.MS 13:42 → JP.SDS 09-13 13:11
PROVIDERS: ATTEND Specialist
DX: M16.11 Unilateral primary osteoarthritis, right hip (principal); J45.909 Unspecified asthma, uncomplicated; E11.9 Type 2 diabetes mellitus without complications; F17.200 Nicotine dependence, unspecified, uncomplicated; Z79.899 Other long term (current) drug therapy
CPT/HCPCS: 01214-QZ; 36415; 72170; 72170-26; 80053; 85027; 94640; 97110-GP; 97161-GP; 97165-GO; 97535-GO; A9270-GY; C1713; C1776; J0330; J0665; J0690; J0780; J1100; J1171; J1596; J2270; J2405; J2704; J2710; J3010; J3490; J7030; J7120

== ENCOUNTER 2024-11-06 13:46 | Inpatient (IN) | payer MEDICAID ==
[2024-11-06] MEDS: HYDROmorphone 1 MG/ML Syringe IVPUSH ONE (14:18)
[2024-11-06] MEDS ORDERED: Propofol 200 MG/20 ML SDV ONE (14:33)
[2024-11-06] MEDS ORDERED: Docusate Sodium 100 MG Cap PO PRN (15:11)
[2024-11-06] MEDS ORDERED: Naloxone 0.4 MG/ML SDV IVPUSH PRN (15:16)
[2024-11-06 15:23] LABS: HEMATOCRIT 40.1 % (34.3-46.0); HEMOGLOBIN 14.1 g/dL (11.2-15.5); MEAN CORPUSCULAR HEMOGLOBIN 31.9 pg (31.6-35.5); MEAN CORPUSCULAR HGB CONC 35.2 g/dL (31.6-35.5); MEAN CORPUSCULAR VOLUME 90.7 fL (81.4-99.0); RED BLOOD CELL COUNT 4.42 M/uL (3.77-5.24); WHITE BLOOD CELL COUNT,WBC 14.9 K/uL (3.2-11.0)
[2024-11-06] MEDS ORDERED: Non-Formulary Medication 1 Each (Tizanidine [Zanaflex] 4 MG Tablet) PO PRN (15:23)
[2024-11-06] MEDS ORDERED: HYDROXYZINE PAMOATE 25 MG PO PRN (15:23)
[2024-11-06] MEDS ORDERED: Hyoscyamine 0.125 MG Tab.SL SL PRN (15:23)
[2024-11-06] MEDS: Acetaminophen/HYDROcodone 325-5 MG Tab PO ONE (15:46)
[2024-11-06] MEDS ORDERED: Magnesium Oxide 400 MG Tab PO PRN ×2 (16:14)
[2024-11-06] MEDS: Sodium Chloride 0.9% 1,000 ML IV SCH (16:33)
[2024-11-06] MEDS: Acetaminophen 325 MG Tab PO SCH (17:29)
[2024-11-06] MEDS: HYDROmorphone 1 MG/ML Syringe IVPUSH PRN (19:28)
[2024-11-06] MEDS: Calcium Carbonate 500 MG Tab.Chew PO SCH (20:00)
[2024-11-06] MEDS: QUEtiapine 100 MG Tab PO SCH (20:00)
[2024-11-06] MEDS: Dicyclomine 10 MG Cap PO SCH (20:01)
[2024-11-06] MEDS: lamoTRIgine 100 MG Tab PO SCH (20:01)
[2024-11-06] MEDS: Montelukast 10 MG Tab PO SCH (20:02)
[2024-11-06] MEDS: Formoterol/Mometasone 200-5 MCG 8.8 GM Inhaler INH SCH (20:02)
[2024-11-06] MEDS: Venlafaxine 75 MG Tab PO SCH (20:03)
[2024-11-06] MEDS: Albuterol 6.7 GM Inhaler INH PRN (20:08)
[2024-11-06] MEDS: Multivitamins with Iron Tab.Chew PO SCH (20:48)
[2024-11-06] MEDS ORDERED: Non-Formulary Medication 1 Each (Omeprazole Magnesium [Prilosec Otc] 20 MG Tablet.Dr) PO SCH (21:00)
[2024-11-06] MEDS ORDERED: QUETIAPINE 300 MG PO SCH (21:00)
[2024-11-06] MEDS ORDERED: SALMETEROL IH SCH (21:00)
[2024-11-06] MEDS ORDERED: [UNRECOGNIZED DRUG - OTHER] IH SCH (21:00)
[2024-11-06] MEDS ORDERED: MULTIVITAMIN PO SCH (21:00)
[2024-11-06] MEDS ORDERED: Non-Formulary Medication 1 Each (Lamotrigine [Lamotrigine] 150 MG Tablet) PO SCH (21:00)
[2024-11-06] MEDS ORDERED: FLUTICASONE PROPION IH SCH (21:00)
[2024-11-06] MEDS ORDERED: Non-Formulary Medication 1 Each (Venlafaxine [Effexor] 37.5 MG Tablet) PO SCH (21:00)
[2024-11-07] MEDS: 50% Dextrose in Water 50 ML Syringe IVPUSH ONE (03:12)
[2024-11-07] MEDS: Pantoprazole 40 MG Tab.CR PO SCH (07:31)
[2024-11-07] MEDS ORDERED: Non-Formulary Medication 1 Each (Flaxseed Oil [Flaxseed] 1,000 MG Capsule) PO SCH (09:00)
[2024-11-07] MEDS ORDERED: Non-Formulary Medication 1 Each (Ferrous Sulfate [Ferrous Sulfate] 324 MG Tablet.Dr) PO SCH (09:00)
[2024-11-07] MEDS ORDERED: Non-Formulary Medication 1 Each (Vitamin E [Vitamin E] 400 UNIT Capsule) PO SCH (09:00)
[2024-11-07] MEDS ORDERED: [UNRECOGNIZED DRUG - OTHER] MC SCH (09:00)
[2024-11-07] MEDS ORDERED: GINSENG 100 MG PO SCH (09:00)
[2024-11-07] MEDS ORDERED: ELDERBERRY FRUIT 350 MG PO SCH (09:00)
[2024-11-07] MEDS ORDERED: Multivitamins with Iron Tab.Chew PO SCH (09:00)
[2024-11-07] MEDS ORDERED: Non-Formulary Medication 1 Each (Cholecalciferol (Vitamin D3) [Vitamin D3] 5,000 UNIT Tabl PO SCH (09:00)
[2024-11-07] MEDS ORDERED: Non-Formulary Medication 1 Each (L.Acidoph,Paracasei, B.Lactis [Probiotic] 1 EACH Capsule) PO SCH (09:00)
[2024-11-07] MEDS: hydrOXYzine HCl 25 MG Tab PO PRN (09:06)
[2024-11-07] MEDS: Lactobacillus Rhamnosus GG (Probiotic) Cap PO SCH (09:06)
[2024-11-07] MEDS: Vitamin B Complex Tab PO SCH (09:06)
[2024-11-07] MEDS: Ferrous Sulfate 325 MG Tab PO SCH (09:07)
[2024-11-07] MEDS: Cholecalciferol (Vitamin D3) 25 MCG Tab PO SCH (09:08)
[2024-11-07] MEDS: Metoprolol Succinate 25 MG Tab.ER PO SCH (09:08)
[2024-11-07] MEDS: ALPRAZolam 0.5 MG Tab PO SCH (09:21)
[2024-11-07] MEDS: Nozin Nasal Sanitizer NASBOTH SCH (09:23)
[2024-11-07] MEDS: Sodium Chloride 0.9% 500 ML IV ONE (09:30)
[2024-11-07] MEDS ORDERED: fentaNYL 250 MCG/5 ML SDV ONE (11:39)
[2024-11-07] MEDS ORDERED: Midazolam 1 MG/ML 2 ML SDV ONE ×2 (11:39→11:40)
[2024-11-07] MEDS ORDERED: Propofol 200 MG/20 ML SDV ONE ×3 (11:39→12:50)
[2024-11-07] MEDS: ceFAZolin 2 GM in Premix Bag 1 BAG IV ONE (12:15)
[2024-11-07] MEDS: Bupivacaine 0.5% 50 ML MDV ONE (12:53)
[2024-11-07] MEDS ORDERED: Lactated Ringers 1,000 ML ONE (13:00)
[2024-11-07] MEDS ORDERED: oxyCODONE 5 MG Tab PO PRN ×2 (13:35)
[2024-11-07] MEDS: Acetaminophen/HYDROcodone 325-10 MG Tab PO PRN (15:31)
[2024-11-07] MEDS: tiZANidine 2 MG Tab PO PRN (17:09)
[2024-11-07] MEDS: HYDROmorphone 1 MG/ML Syringe IVPUSH PRN (18:25)
[2024-11-07] MEDS: Apixaban 2.5 MG Tab PO SCH (20:43)
[2024-11-08] MEDS: Prochlorperazine 10 MG/2 ML SDV IVPUSH PRN (08:57)
[2024-11-08] MEDS: Acetaminophen/HYDROcodone 325-5 MG Tab PO PRN (10:24)
[2024-11-08 11:48] VITALS: BP 114/59; PULSE 93
== END 2024-11-08 14:10 | disposition home or self-care (01) | DRG 468 ==
LOC: JP.ED 13:46 → JP.MS 15:12
PROVIDERS: ADMIT Specialist; ATTEND Specialist
PROC: 0SP909Z Removal of Liner from Right Hip Joint, Open Approach (ICD-10-PCS; principal; 2024-11-06)
PROC: 0SUA09Z Supplement Right Hip Joint, Acetabular Surface with Liner, Open Approach (ICD-10-PCS; 2024-11-06)
DX: S73.004A Unspecified dislocation of right hip, initial encounter (principal); H54.7 Unspecified visual loss; F15.90 Other stimulant use, unspecified, uncomplicated; J45.909 Unspecified asthma, uncomplicated; K21.9 Gastro-esophageal reflux disease without esophagitis; K58.9 Irritable bowel syndrome, unspecified; F31.9 Bipolar disorder, unspecified; D64.9 Anemia, unspecified; F17.210 Nicotine dependence, cigarettes, uncomplicated; X58.XXXA Exposure to other specified factors, initial encounter; E66.9 Obesity, unspecified; E11.9 Type 2 diabetes mellitus without complications; Z86.16 Personal history of COVID-19; Z90.89 Acquired absence of other organs; Z88.8 Allergy status to other drugs, medicaments and biological substances; Z79.1 Long term (current) use of non-steroidal anti-inflammatories (NSAID); Z79.01 Long term (current) use of anticoagulants; Z88.6 Allergy status to analgesic agent; Z79.891 Long term (current) use of opiate analgesic; Z79.899 Other long term (current) drug therapy; Z87.01 Personal history of pneumonia (recurrent); Z87.81 Personal history of (healed) traumatic fracture; Y93.89 Activity, other specified; Y92.89 Other specified places as the place of occurrence of the external cause; Z68.31 Body mass index [BMI] 31.0-31.9, adult; Z98.84 Bariatric surgery status; Z98.890 Other specified postprocedural states; Z90.49 Acquired absence of other specified parts of digestive tract; Z90.710 Acquired absence of both cervix and uterus
CPT/HCPCS: 01200-QZ; 01215-QZ; 27265; 36415; 73501-26-RT; 73501-RT; 73502-26-RT; 73502-RT; 82947; 85027; 94640; 96374; 97161-GP; 99285; 99285-25; A9270-GY; C1713; C1776; J0665; J0690; J0780; J1171; J2250; J2704; J3010; J7030; J7040; J7120

== ENCOUNTER 2024-12-20 06:32 | Day surgery (SDC) | payer MEDICAID ==
[2024-12-20] MEDS ORDERED: Midazolam 1 MG/ML 2 ML SDV ONE (06:53)
[2024-12-20] MEDS ORDERED: Propofol 200 MG/20 ML SDV ONE (06:53)
[2024-12-20] MEDS ORDERED: fentaNYL 50 MCG/ML SDV ONE (06:53)
[2024-12-20] MEDS: Lactated Ringers 1,000 ML IV SCH (06:56)
[2024-12-20 08:45] VITALS: PULSE 79
[2024-12-20 08:49] VITALS: BP 120/64
== END 2024-12-20 08:51 | disposition home or self-care (01) ==
LOC: JP.SDS 06:32
PROVIDERS: ATTEND Surgery
DX: R10.9 Unspecified abdominal pain (principal); J45.909 Unspecified asthma, uncomplicated
CPT/HCPCS: J2250; J2704; J3010; J7120

== ENCOUNTER 2025-01-18 07:46 | Emergency (ER) | payer MEDICAID ==
[2025-01-18 08:05] VITALS: BP 112/61; PULSE 92
[2025-01-18] MEDS: HYDROmorphone 1 MG/ML Syringe IVPUSH ONE (08:20)
[2025-01-18] MEDS ORDERED: Propofol 200 MG/20 ML SDV ONE (09:24)
== END 2025-01-18 10:03 | disposition home or self-care (01) ==
LOC: JP.ED 07:46
DX: S73.004D Unspecified dislocation of right hip, subsequent encounter (principal); J45.909 Unspecified asthma, uncomplicated; K21.9 Gastro-esophageal reflux disease without esophagitis; E66.9 Obesity, unspecified; E11.9 Type 2 diabetes mellitus without complications; Z88.8 Allergy status to other drugs, medicaments and biological substances; Z79.899 Other long term (current) drug therapy; Z90.49 Acquired absence of other specified parts of digestive tract; Z90.710 Acquired absence of both cervix and uterus; W19.XXXD Unspecified fall, subsequent encounter; X50.1XXD Overexertion from prolonged static or awkward postures, subsequent encounter
CPT/HCPCS: 01200-QZ; 27265; 73501-26-RT; 73501-RT; 96374; 99152; 99284; 99284-25; J1171; J2704

== ENCOUNTER 2025-02-21 15:05 | Emergency (ER) | payer MEDICAID ==
[2025-02-21] MEDS: HYDROmorphone 1 MG/ML Syringe IVPUSH ONE ×2 (15:46→16:36)
[2025-02-21] MEDS: HYDROmorphone 1 MG/ML Syringe IM ONE (15:49)
[2025-02-21 16:08] VITALS: BP 108/58; PULSE 88
[2025-02-21] MEDS: HYDROmorphone 1 MG/ML Syringe ONE (16:25)
[2025-02-21] MEDS ORDERED: Propofol 200 MG/20 ML SDV ONE (17:06)
== END 2025-02-21 17:09 | disposition home or self-care (01) ==
LOC: JP.ED 15:05
DX: S73.004A Unspecified dislocation of right hip, initial encounter (principal); Z88.8 Allergy status to other drugs, medicaments and biological substances
CPT/HCPCS: 27250; 73501; 73502; 96374; 96376; 99283; J1171; J2704; 01200-QZ; 99284

== ENCOUNTER 2025-02-27 09:50 | Day surgery (SDC) | payer MEDICAID ==
[~2025-02-27 09:50] MED LIST changes: +Bupivacaine 0.5%/EPINEPHrine 1:200,000 50 ML MDV ONE; -Dexamethasone 4 MG/ML SDV ONE; -Glycopyrrolate 0.2 MG/ML 5 ML MDV ONE; -Lactated Ringers 1,000 ML ONE; +Midazolam 1 MG/ML 2 ML SDV ONE; -Neostigmine Methylsulfate 10 MG/10 ML MDV ONE; -Ondansetron 4 MG/2 ML SDV ONE; -Rocuronium 50 MG/5 ML Vial ONE; -fentaNYL 250 MCG/5 ML SDV ONE
[2025-02-27] MEDS: Nozin Nasal Sanitizer NASBOTH SCH ×2 (10:19→20:11)
[2025-02-27 10:33] LABS: HEMATOCRIT 39.9 % (34.3-46.0); HEMOGLOBIN 13.9 g/dL (11.2-15.5); MEAN CORPUSCULAR HGB CONC 34.8 g/dL (31.6-35.5); MEAN CORPUSCULAR VOLUME 91.9 fL (81.4-99.0); RED BLOOD CELL COUNT 4.34 M/uL (3.77-5.24); WHITE BLOOD CELL COUNT,WBC 7.1 K/uL (3.2-11.0)
[2025-02-27 10:54] LABS: A/G RATIO 0.9 (1.2-2.2); ALANINE AMINOTRANSFERASE,ALT 54 U/L (12-78); ALBUMIN 3.2 g/dL (3.4-5.0); ALKALINE PHOSPHATASE 221 U/L (46-116); ASPARTATE AMNIOTRANSFERASE,AST 18 U/L (15-37); BILIRUBIN TOTAL 0.2 mg/dL (0.2-1.0); BLOOD UREA NITROGEN,BUN 8 mg/dL (7-18); CALCIUM 9.1 mg/dL (8.5-10.1); CARBON DIOXIDE,CO2 26 mmol/L (21-32); CHLORIDE,CL 105 mmol/L (100-108); CREATININE 0.8 mg/dL (0.6-1.0); EST CRCL DRUG DOSING (CG) 81.59 mL/min; ESTIMATED GFR 94 mL/min (>60); GLUCOSE RANDOM 104 mg/dL (74-106); POTASSIUM,K 3.7 mmol/L (3.6-5.2); PROTEIN TOTAL,TP 6.7 g/dL (6.4-8.2); SODIUM,NA 143 mmol/L (140-148)
[2025-02-27] MEDS: Lactated Ringers 1,000 ML IV SCH (11:05)
[2025-02-27] MEDS: Bupivacaine 0.5% 50 ML MDV ONE (12:44)
[2025-02-27] MEDS ORDERED: Albuterol 6.7 GM Inhaler INH PRN (13:03)
[2025-02-27] MEDS ORDERED: Benzonatate 100 MG Cap PO PRN (13:03)
[2025-02-27] MEDS ORDERED: Hyoscyamine 0.125 MG Tab.SL SL PRN (13:04)
[2025-02-27] MEDS ORDERED: Ondansetron 4 MG/2 ML SDV IVPUSH PRN (13:06)
[2025-02-27] MEDS ORDERED: Docusate Sodium 100 MG Cap PO PRN (13:06)
[2025-02-27] MEDS: ceFAZolin 2 GM in Premix Bag 1 BAG IV ONE (13:06)
[2025-02-27] MEDS ORDERED: Ketorolac 15 MG/ML SDV IVPUSH PRN (13:06)
[2025-02-27] MEDS ORDERED: Propofol 200 MG/20 ML SDV ONE ×3 (13:17→14:34)
[2025-02-27] MEDS ORDERED: Midazolam 1 MG/ML 2 ML SDV ONE ×4 (13:27→14:07)
[2025-02-27] MEDS ORDERED: fentaNYL 100 MCG/2 ML SDV ONE ×3 (13:28→14:07)
[2025-02-27] MEDS ORDERED: Magnesium Oxide 400 MG Tab PO PRN (15:58)
[2025-02-27] MEDS: HYDROmorphone 2 MG Tab PO PRN (16:45)
[2025-02-27] MEDS: Dicyclomine 10 MG Cap PO SCH (17:45)
[2025-02-27] MEDS: Acetaminophen 325 MG Tab PO SCH (17:45)
[2025-02-27] MEDS: Prochlorperazine 10 MG Tab PO PRN (17:54)
[2025-02-27] MEDS: hydrOXYzine HCl 25 MG Tab PO PRN (17:54)
[2025-02-27] MEDS: tiZANidine 2 MG Tab PO PRN (19:22)
[2025-02-27] MEDS: ceFAZolin 2 GM in Premix Bag 1 BAG IV SCH (19:22)
[2025-02-27] MEDS: Formoterol/Mometasone 200-5 MCG 8.8 GM Inhaler INH SCH (20:14)
[2025-02-27] MEDS: Montelukast 10 MG Tab PO SCH (20:15)
[2025-02-27] MEDS: lamoTRIgine 100 MG Tab PO SCH (20:15)
[2025-02-27] MEDS: Calcium Carbonate 500 MG Tab.Chew PO SCH (20:15)
[2025-02-27] MEDS: QUEtiapine 100 MG Tab PO SCH (20:16)
[2025-02-27] MEDS: Venlafaxine 75 MG Tab PO SCH (20:16)
[2025-02-27] MEDS: Multivitamins with Iron Tab.Chew PO SCH (20:16)
[2025-02-27] MEDS ORDERED: Naloxone 0.4 MG/ML SDV IVPUSH PRN (21:32)
[2025-02-27] MEDS: Morphine 2 MG/ML SYRINGE IVPUSH PRN (21:48)
[2025-02-27] MEDS: Promethazine 25 MG Tab PO PRN (21:48)
[2025-02-28] MEDS: Sodium Chloride 0.9% 1,000 ML IV SCH (04:11)
[2025-02-28 06:07] LABS: HEMATOCRIT 34.2 % (34.3-46.0); HEMOGLOBIN 11.9 g/dL (11.2-15.5); MEAN CORPUSCULAR HEMOGLOBIN 32.2 pg (31.6-35.5); MEAN CORPUSCULAR HGB CONC 34.8 g/dL (31.6-35.5); MEAN CORPUSCULAR VOLUME 92.4 fL (81.4-99.0); RED BLOOD CELL COUNT 3.7 M/uL (3.77-5.24)
[2025-02-28] MEDS: Pantoprazole 40 MG Tab.CR PO SCH (07:05)
[2025-02-28] MEDS ORDERED: Non-Formulary Medication 1 Each (Flaxseed Oil [Flaxseed] 1,000 MG Capsule) PO SCH (09:00)
[2025-02-28] MEDS ORDERED: Non-Formulary Medication 1 Each (Vitamin E [Vitamin E] 400 UNIT Capsule) PO SCH (09:00)
[2025-02-28] MEDS: Ferrous Sulfate 325 MG Tab PO SCH (09:08)
[2025-02-28] MEDS: Apixaban 2.5 MG Tab PO SCH (09:09)
[2025-02-28] MEDS: Lactobacillus Rhamnosus GG (Probiotic) Cap PO SCH (09:09)
[2025-02-28] MEDS: Metoprolol Succinate 25 MG Tab.ER PO SCH (09:10)
[2025-02-28] MEDS: Vitamin B Complex Tab PO SCH (09:12)
[2025-02-28] MEDS: Cholecalciferol (Vitamin D3) 25 MCG Tab PO SCH (09:12)
[2025-02-28] MEDS: ALPRAZolam 0.5 MG Tab PO SCH (09:17)
[2025-02-28 11:48] VITALS: BP 96/45; PULSE 86
== END 2025-02-28 12:25 | disposition home or self-care (01) ==
LOC: JP.SDS 09:50 → JP.MS 13:06 → JP.SDS 02-28 12:25
PROVIDERS: ATTEND Specialist
DX: T84.020A Dislocation of internal right hip prosthesis, initial encounter (principal); Z98.890 Other specified postprocedural states; Z79.01 Long term (current) use of anticoagulants; Z79.899 Other long term (current) drug therapy
CPT/HCPCS: 01215; 27137; 36415; 72170; 80053; 85027; 86850; 86900; 86901; 94640; 97161; A9270; C1713; C1776; J0690; J2250; J2270; J2704; J3010; J7030; J7120; Q0164; Q0169; J0665; J3490